=== PATIENT | male | born 1940 | race Caucasian/White ===

== ENCOUNTER → 2016-11-15 | Outpatient (CLI) | payer MEDICARE, OTHER | END | disposition home or self-care (01) | LOC: PETCFH 10:02 | PROVIDERS: ATTEND Orthopaedic Surgery Orthopaedic Surgery of the Spine | DX: M81.0 Age-related osteoporosis without current pathological fracture (principal); M25.561 Pain in right knee; Z96.651 Presence of right artificial knee joint | CPT/HCPCS: 78315; A9503 ==

== ENCOUNTER → 2017-01-06 | Outpatient (CLI) | payer MEDICARE, OTHER | END | disposition home or self-care (01) | LOC: CFH 10:23 | PROVIDERS: ATTEND Orthopaedic Surgery Adult Reconstructive Orthopaedic Surgery | DX: M25.561 Pain in right knee (principal); Z96.651 Presence of right artificial knee joint ==

== ENCOUNTER → 2017-01-11 | Outpatient (CLI) | payer MEDICARE, OTHER | END | disposition home or self-care (01) | LOC: CVU 08:55 | PROVIDERS: ATTEND Internal Medicine Cardiovascular Disease | DX: I65.23 Occlusion and stenosis of bilateral carotid arteries (principal); E11.9 Type 2 diabetes mellitus without complications; I63.9 Cerebral infarction, unspecified; Z79.899 Other long term (current) drug therapy; Z87.891 Personal history of nicotine dependence | CPT/HCPCS: 93306; 93880 ==

== ENCOUNTER → 2017-04-06 | Outpatient (CLI) | payer MEDICARE, OTHER | END | disposition home or self-care (01) | LOC: CVU 07:30 | PROVIDERS: ATTEND Registered Nurse | DX: I65.23 Occlusion and stenosis of bilateral carotid arteries (principal); I10 Essential (primary) hypertension; E11.9 Type 2 diabetes mellitus without complications; I25.10 Atherosclerotic heart disease of native coronary artery without angina pectoris; Z86.73 Personal history of transient ischemic attack (TIA), and cerebral infarction without residual deficits | CPT/HCPCS: 93880 ==

== ENCOUNTER → 2017-06-08 | Outpatient (CLI) | payer MEDICARE, OTHER ==
[~2017-06-08] MED LIST: REGADENOSON 0.4 MG/5 ML SYRINGE ONE
== END | disposition home or self-care (01) ==
LOC: CFH 11:37
PROVIDERS: ATTEND Internal Medicine Cardiovascular Disease
DX: Z01.810 Encounter for preprocedural cardiovascular examination (principal)
CPT/HCPCS: 78452; 93017; A9502; J2785

== ENCOUNTER 2018-05-18 02:40 | Inpatient (IN) | payer MEDICARE, OTHER ==
[~2018-05-18] VITALS: Ht 177.8 cm; Wt 114.5 kg
[2018-05-18] MEDS ORDERED: ACETAMINOPHEN 500 MG TABLET PO ONE (03:00)
[2018-05-18] MEDS ORDERED: ONDANSETRON 2MG/ML, 2ML IVPush ONE (03:00)
[2018-05-18] MEDS ORDERED: ONDANSETRON 2MG/ML, 2ML ONE (03:16)
[2018-05-18] MEDS ORDERED: ACETAMINOPHEN 500 MG TABLET ONE (03:16)
[2018-05-18 03:19] LABS: BASOPHILS # (AUTO) 0.03 x10^3/uL (0-0.1); BASOPHILS % (AUTO) 1 % (0-1); EOSINOPHILS # (AUTO) 0.32 x10^3/uL (0-0.4); EOSINOPHILS % (AUTO) 4 % (1-7); LYMPHOCYTES # (AUTO) 0.94 x10^3/uL (1-3.4); LYMPHOCYTES % (AUTO) 13 % (22-44); MD NO; MEAN CORPUSCULAR HEMOGLOBIN 28.4 pg (27.5-34.5); MEAN CORPUSCULAR HGB CONC 32.3 g/dL (33.2-36.2); MEAN CORPUSCULAR VOLUME 87.8 fL (81-97); MEAN PLATELET VOLUME 8.1 fL (7.4-10.4); MONOCYTES # (AUTO) 0.42 x10^3/uL (0.2-0.8); MONOCYTES % (AUTO) 6 % (2-9); NEUTROPHILS # (AUTO) 5.74 x10^3/uL (1.8-6.8); NEUTROPHILS % (AUTO) 77 % (42-75); PLATELET COUNT 217 x10^3/uL (130-400); RED CELL DISTRIBUTION WIDTH 16.7 % (9.4-14.8)
[2018-05-18 03:30] LABS: ALANINE AMINOTRANSFERASE 20 U/L (12-78); ALBUMIN 2.7 g/dL (3.4-5.0); ANION GAP 8 mmol/L (5-15); CALCIUM 8.9 mg/dL (8.5-10.1); CHLORIDE 105 mmol/L (98-107)
[2018-05-18 03:35] LABS: ALKALINE PHOSPHATASE 108 U/L (45-117); BILIRUBIN,TOTAL 1.7 mg/dL (0.2-1.0); CREATININE 1.53 mg/dL (0.7-1.3); TOTAL PROTEIN 7.2 g/dL (6.4-8.2)
[2018-05-18 03:35] LABS: TROPONIN I < 0.015 ng/mL (0.000-0.045)
[2018-05-18] MEDS ORDERED: OMNIPAQUE 350 MG/ML, 100ML BOTTLE ONE (03:59)
[2018-05-18 05:13] LABS: MICROSCOPIC AUTO
[2018-05-18 05:24] LABS: CULTURE INDICATED? NO
[2018-05-18] MEDS ORDERED: VICTOZA SQ (05:53)
[2018-05-18] MEDS ORDERED: GABA300C10 PO (05:53)
[2018-05-18] MEDS ORDERED: DOCU100T3 PO (05:53)
[2018-05-18] MEDS ORDERED: LEVEMIR SQ (05:53)
[2018-05-18] MEDS ORDERED: FOSI10TA PO (05:53)
[2018-05-18] MEDS ORDERED: TAMS0.4C2 PO (05:53)
[2018-05-18] MEDS ORDERED: ASPI-496 PO (05:53)
[2018-05-18] MEDS ORDERED: CARV6.252 PO (05:53)
[2018-05-18] MEDS ORDERED: POLYETHYLENE GLYCOL PO (05:53)
[2018-05-18] MEDS ORDERED: ATOR40TA78 PO (05:53)
[2018-05-18] MEDS ORDERED: FINA5TAB4 PO (05:53)
[2018-05-18] MEDS ORDERED: FERR324T5 PO (05:53)
[2018-05-18] MEDS ORDERED: OXYB5TAB7 PO (05:53)
[2018-05-18] MEDS ORDERED: METF500T17 PO (05:53)
[2018-05-18 09:36] VITALS: BP 151/75
[2018-05-18] MEDS: FINASTERIDE 5 MG TABLET PO SCH (11:54)
[2018-05-18] MEDS: CARVEDILOL 6.25 MG TABLET PO SCH ×2 (11:54→23:54)
[2018-05-18] MEDS ORDERED: ENALAPRILAT 1.25 MG/ML, 2ML IVPush PRN (12:00)
[2018-05-18] MEDS ORDERED: ONDANSETRON 2MG/ML, 2ML IVPush PRN (12:00)
[2018-05-18] MEDS ORDERED: GLUCAGON 1 MG IM PRN (12:00)
[2018-05-18] MEDS ORDERED: LABETALOL 5MG/ML, 20ML IVPush PRN (12:00)
[2018-05-18] MEDS ORDERED: morphine SULFATE 10 MG/ML, 1ML IVPush PRN (12:00)
[2018-05-18] MEDS ORDERED: TEMAZEPAM 15 MG CAPSULE PO PRN (12:00)
[2018-05-18] MEDS ORDERED: DEXTROSE 4 GM TAB.CHEW PO PRN (12:00)
[2018-05-18] MEDS ORDERED: DEXTROSE 50%, 50ML SYRINGE IVPush PRN (12:00)
[2018-05-18] MEDS ORDERED: ONDANSETRON ODT 4 MG PO PRN (12:00)
[2018-05-18 12:55] LABS: HEMOGLOBIN A1C 8.3 % (4.2-6.3)
[2018-05-18 13:59] VITALS: BP 109/66
[2018-05-18] MEDS: INSULIN LISPRO 100 UNITS/ML, PEN SQ-INSULIN SCH (16:00)
[2018-05-18 20:22] VITALS: BP 133/71
[2018-05-18] MEDS: INSULIN GLARGINE 100 UNITS/ML, PEN SQ-INSULIN SCH (21:00)
[2018-05-18] MEDS: TAMSULOSIN 0.4 MG CAP.ER.24H PO SCH (23:53)
[2018-05-18] MEDS: GABAPENTIN 300 MG CAPSULE PO SCH (23:53)
[2018-05-18] MEDS: SODIUM CHLORIDE FLUSH 10ML SYR IVF SCH (23:54)
[2018-05-19 01:26] VITALS: BP 115/67
[2018-05-19] MEDS: INSULIN LISPRO 100 UNITS/ML, PEN SQ-INSULIN SCH ×5 (02:53→21:37)
[2018-05-19 05:45] LABS: BASOPHILS # (AUTO) 0.03 x10^3/uL (0-0.1); BASOPHILS % (AUTO) 0 % (0-1); EOSINOPHILS # (AUTO) 0.33 x10^3/uL (0-0.4); EOSINOPHILS % (AUTO) 4 % (1-7); LYMPHOCYTES # (AUTO) 1.21 x10^3/uL (1-3.4); LYMPHOCYTES % (AUTO) 16 % (22-44); MD NO; MEAN CORPUSCULAR HEMOGLOBIN 28.6 pg (27.5-34.5); MEAN CORPUSCULAR HGB CONC 32.6 g/dL (33.2-36.2); MEAN CORPUSCULAR VOLUME 87.8 fL (81-97); MEAN PLATELET VOLUME 8.5 fL (7.4-10.4); MONOCYTES # (AUTO) 0.53 x10^3/uL (0.2-0.8); MONOCYTES % (AUTO) 7 % (2-9); NEUTROPHILS # (AUTO) 5.49 x10^3/uL (1.8-6.8); NEUTROPHILS % (AUTO) 73 % (42-75); PLATELET COUNT 186 x10^3/uL (130-400); RED BLOOD COUNT 3.38 x10^6/uL (4.38-5.82)
[2018-05-19 05:51] LABS: ALBUMIN 2.3 g/dL (3.4-5.0); ANION GAP 9 mmol/L (5-15); CHLORIDE 107 mmol/L (98-107)
[2018-05-19 06:20] LABS: % IRON SATURATION 19 % (20-55); ALANINE AMINOTRANSFERASE 14 U/L (12-78); ALKALINE PHOSPHATASE 96 U/L (45-117); BILIRUBIN,TOTAL 1.4 mg/dL (0.2-1.0); CALCIUM 8.4 mg/dL (8.5-10.1); CHOL/HDL RATIO 1.7; CHOLESTEROL, TOTAL 67 mg/dL (140-239); CREATININE 1.77 mg/dL (0.7-1.3); HDL CHOL % 60 % (26-37); HDL CHOLESTEROL (DIRECT) 40 mg/dL (40-60); IRON LEVEL 37 mcg/dL (65-175); LDL CHOLESTEROL,CALCULATED 12 mg/dL (54-169); LDL/HDL RATIO 0.3 (0.5-3.0); TOTAL IRON BINDING CAPACITY 197 mcg/dL (250-450); TRIGLYCERIDES 76 mg/dL (50-200); VLDL CHOLESTEROL 15 mg/dL (0-25)
[2018-05-19 07:31] VITALS: BP 132/74
[2018-05-19] MEDS: SODIUM CHLORIDE FLUSH 10ML SYR IVF SCH ×2 (08:08→21:35)
[2018-05-19] MEDS: FINASTERIDE 5 MG TABLET PO SCH (08:08)
[2018-05-19] MEDS: CARVEDILOL 6.25 MG TABLET PO SCH ×2 (08:08→21:36)
[2018-05-19] MEDS: ASPIRIN 325 MG TABLET PO SCH (08:08)
[2018-05-19] MEDS ORDERED: CYANOCOBALAMIN 1,000 MCG/ML, 1ML IM ONE (10:00)
[2018-05-19] MEDS: FERROUS SULFATE 220 MG/5 ML ORAL SOL PO SCH ×2 (10:36→18:04)
[2018-05-19 13:46] VITALS: BP 132/78
[2018-05-19 18:35] VITALS: BP 133/73
[2018-05-19] MEDS: TAMSULOSIN 0.4 MG CAP.ER.24H PO SCH (21:36)
[2018-05-19] MEDS: GABAPENTIN 300 MG CAPSULE PO SCH (21:36)
[2018-05-19] MEDS: INSULIN GLARGINE 100 UNITS/ML, PEN SQ-INSULIN SCH (21:37)
[2018-05-20 02:14] VITALS: BP 157/65
[2018-05-20 06:04] LABS: BASOPHILS # (AUTO) 0.04 x10^3/uL (0-0.1); BASOPHILS % (AUTO) 1 % (0-1); EOSINOPHILS # (AUTO) 0.27 x10^3/uL (0-0.4); EOSINOPHILS % (AUTO) 4 % (1-7); LYMPHOCYTES # (AUTO) 0.94 x10^3/uL (1-3.4); LYMPHOCYTES % (AUTO) 15 % (22-44); MD NO; MEAN CORPUSCULAR HEMOGLOBIN 28.7 pg (27.5-34.5); MEAN CORPUSCULAR HGB CONC 32.6 g/dL (33.2-36.2); MEAN CORPUSCULAR VOLUME 88.1 fL (81-97); MEAN PLATELET VOLUME 8.6 fL (7.4-10.4); MONOCYTES # (AUTO) 0.48 x10^3/uL (0.2-0.8); MONOCYTES % (AUTO) 7 % (2-9); NEUTROPHILS # (AUTO) 4.79 x10^3/uL (1.8-6.8); NEUTROPHILS % (AUTO) 74 % (42-75); PLATELET COUNT 189 x10^3/uL (130-400); RED CELL DISTRIBUTION WIDTH 16.8 % (9.4-14.8)
[2018-05-20 06:15] LABS: ALANINE AMINOTRANSFERASE 16 U/L (12-78); ALBUMIN 2.4 g/dL (3.4-5.0); ANION GAP 8 mmol/L (5-15); CALCIUM 8.7 mg/dL (8.5-10.1); CHLORIDE 107 mmol/L (98-107)
[2018-05-20 06:18] LABS: ALKALINE PHOSPHATASE 108 U/L (45-117); BILIRUBIN,TOTAL 1.6 mg/dL (0.2-1.0); CREATININE 1.58 mg/dL (0.7-1.3); TOTAL PROTEIN 6.4 g/dL (6.4-8.2)
[2018-05-20] MEDS: INSULIN LISPRO 100 UNITS/ML, PEN SQ-INSULIN SCH ×2 (07:40→11:17)
[2018-05-20 07:50] VITALS: BP 156/80
[2018-05-20] MEDS: CARVEDILOL 6.25 MG TABLET PO SCH (08:09)
[2018-05-20] MEDS: FINASTERIDE 5 MG TABLET PO SCH (08:09)
[2018-05-20] MEDS: ASPIRIN 325 MG TABLET PO SCH (08:09)
[2018-05-20 08:10] VITALS: BP 156/80
[2018-05-20] MEDS: FERROUS SULFATE 220 MG/5 ML ORAL SOL PO SCH (08:10)
[2018-05-20 13:35] VITALS: BP 126/69
== END 2018-05-20 14:30 | disposition home health service (06) | DRG 438 ==
LOC: ED 03:36 → 4NOR 07:58 → ED 12:05
PROVIDERS: ADMIT Internal Medicine; ATTEND Internal Medicine
PROC: 0T9B70Z Drainage of Bladder with Drainage Device, Via Natural or Artificial Opening (ICD-10-PCS; principal; 2018-05-18)
DX: K85.90 Acute pancreatitis without necrosis or infection, unspecified (principal); J96.21 Acute and chronic respiratory failure with hypoxia; N13.2 Hydronephrosis with renal and ureteral calculous obstruction; I13.0 Hypertensive heart and chronic kidney disease with heart failure and stage 1 through stage 4 chronic kidney disease, or unspecified chronic kidney disease; I50.32 Chronic diastolic (congestive) heart failure; N40.1 Benign prostatic hyperplasia with lower urinary tract symptoms; K57.90 Diverticulosis of intestine, part unspecified, without perforation or abscess without bleeding; E11.22 Type 2 diabetes mellitus with diabetic chronic kidney disease; E11.42 Type 2 diabetes mellitus with diabetic polyneuropathy; E11.65 Type 2 diabetes mellitus with hyperglycemia; E53.8 Deficiency of other specified B group vitamins; D50.9 Iron deficiency anemia, unspecified; N18.3 Chronic kidney disease, stage 3 (moderate); Z96.641 Presence of right artificial hip joint; Z96.651 Presence of right artificial knee joint; R31.0 Gross hematuria; I35.8 Other nonrheumatic aortic valve disorders; E78.5 Hyperlipidemia, unspecified; E66.9 Obesity, unspecified; Z87.891 Personal history of nicotine dependence; Z90.49 Acquired absence of other specified parts of digestive tract; Z68.36 Body mass index [BMI] 36.0-36.9, adult; Z79.899 Other long term (current) drug therapy
CPT/HCPCS: 36415; 71045; 74177; 80053; 80061; 81001; 82607; 82728; 82962; 83036; 83540; 83550; 83605; 83690; 83735; 83880; 84100; 84484; 85025; 93005; 93306; 96374; G0378; J2405; Q9967; J3420

== ENCOUNTER → 2018-06-20 | Outpatient (CLI) | payer MEDICARE, OTHER ==
[~2018-06-20] MED LIST changes: +ASPI-496 PO; +ATOR40TA78 PO; +CARV6.252 PO; +DOCU100T3 PO; +FERR324T5 PO; +FINA5TAB4 PO; +FOSI10TA PO; +GABA300C10 PO; +LEVEMIR SQ; +METF500T17 PO; +OXYB5TAB7 PO; +POLYETHYLENE GLYCOL PO; -REGADENOSON 0.4 MG/5 ML SYRINGE ONE; +TAMS0.4C2 PO; +VICTOZA SQ
== END | disposition home or self-care (01) ==
LOC: CFH 07:42
PROVIDERS: ATTEND Physician Assistant Medical
DX: D73.89 Other diseases of spleen (principal)
CPT/HCPCS: 74181

== ENCOUNTER 2018-06-28 11:08 | Inpatient (IN) | payer MEDICARE, OTHER ==
[~2018-06-28] VITALS: Ht 177.8 cm; Wt 99.3 kg
[~2018-06-28 11:08] MED LIST changes: +ASPI-650 PO; +ATOR40TA PO; +INSU100V13 PO; +TAMS-11 PO
[2018-06-28] MEDS ORDERED: LACTATED RINGERS 1,000 ML IV SCH (11:59)
[2018-06-28] MEDS ORDERED: ROCURONIUM 10MG/ML,5ML ONE (12:22)
[2018-06-28] MEDS ORDERED: NEOSTIGMINE 1 MG/ML, 10ML ONE (12:22)
[2018-06-28] MEDS ORDERED: GLYCOPYRROLATE 0.2MG/1ML, 5ML ONE (12:22)
[2018-06-28] MEDS ORDERED: CEFAZOLIN 1,000 MG ONE (12:22)
[2018-06-28] MEDS ORDERED: PROPOFOL 10 MG/ML, 20ML ONE (12:22)
[2018-06-28] MEDS ORDERED: FENTANYL PF 250 MCG/5ML ONE (12:51)
[2018-06-28] MEDS ORDERED: PROMETHAZINE 25 MG/ML, 1ML IM PRN ×2 (13:30)
[2018-06-28] MEDS ORDERED: ONDANSETRON 2MG/ML, 2ML IV PRN (13:30)
[2018-06-28] MEDS ORDERED: PROMETHAZINE 25 MG/ML, 1ML IV PRN (13:30)
[2018-06-28] MEDS ORDERED: OXYcodone 5 MG/5 ML ORAL.SOL UDC PO PRN (13:30)
[2018-06-28] MEDS ORDERED: hydrALAzine 20 MG/ML, 1ML IV PRN (13:30)
[2018-06-28] MEDS ORDERED: MEPERIDINE/PF 25MG/0.5ML IVPush PRN (13:30)
[2018-06-28] MEDS ORDERED: MORPHINE SULFATE 4 MG/ML, 1ML IVPush PRN (13:30)
[2018-06-28] MEDS ORDERED: ONDANSETRON ODT 8 MG PO PRN (13:30)
[2018-06-28] MEDS ORDERED: HYDROmorphone 2 MG/ML, 1ML IVPush PRN (13:30)
[2018-06-28] MEDS ORDERED: LABETALOL 5MG/ML, 20ML IV PRN (13:30)
[2018-06-28] MEDS ORDERED: PROMETHAZINE 12.5 MG SUPP PR PRN (13:30)
[2018-06-28] MEDS ORDERED: PROMETHAZINE 25 MG SUPP PR PRN (13:30)
[2018-06-28] MEDS ORDERED: OMNIPAQUE 350 MG/ML, 50 ML BOTTLE IV ONE (13:45)
[2018-06-28] MEDS ORDERED: CIPROFLOXACIN/PMX 400MG/200ML 200 ML ONE (13:48)
[2018-06-28] MEDS ORDERED: OXYcodone/APAP 5/325MG TABLET PO PRN ×2 (15:30→22:00)
[2018-06-28] MEDS ORDERED: ONDANSETRON 2MG/ML, 2ML ONE (15:43)
[2018-06-28] MEDS ORDERED: ALBUTEROL/IPRATROPIUM 2.5MG/0.5MG, 3 ML ONE (15:58)
[2018-06-28] MEDS ORDERED: ALBUTEROL SULFATE 2.5 MG/3 ML NPPB PRN (16:00)
[2018-06-28] MEDS ORDERED: FENTANYL PF 100 MCG/2ML ONE (16:12)
[2018-06-28] MEDS: FENTANYL PF 100 MCG/2ML IV PRN ×2 (16:15→16:30)
[2018-06-28] MEDS ORDERED: PROMETHAZINE 25 MG/ML, 1ML ONE (16:48)
[2018-06-28 17:48] VITALS: BP 116/69
[2018-06-28] MEDS: INSULIN DETEMIR 30 UNIT PO SCH (22:00)
[2018-06-28] MEDS ORDERED: PHENAZOPYRIDINE 200 MG TABLET PO PRN (22:00)
[2018-06-28] MEDS ORDERED: OXYBUTYNIN CHLORIDE 5 MG TABLET PO PRN (22:00)
[2018-06-28 23:21] VITALS: BP 137/74
[2018-06-28] MEDS: ATORVASTATIN 40 MG TABLET PO SCH (23:23)
[2018-06-28] MEDS: CIPROFLOXACIN 500 MG TABLET PO SCH (23:23)
[2018-06-28] MEDS: GABAPENTIN 300 MG CAPSULE PO SCH (23:23)
[2018-06-28] MEDS: OXYBUTYNIN CHLORIDE 5 MG TABLET PO SCH (23:23)
[2018-06-28] MEDS: metFORMIN 500 MG TABLET PO SCH (23:24)
[2018-06-28] MEDS: CARVEDILOL 6.25 MG TABLET PO SCH (23:24)
[2018-06-29 01:47] VITALS: BP 134/83
[2018-06-29 07:23] VITALS: BP 144/83
[2018-06-29] MEDS: TAMSULOSIN 0.4 MG CAP.ER.24H PO SCH (08:41)
[2018-06-29] MEDS: ASPIRIN 325 MG TABLET PO SCH (08:41)
[2018-06-29] MEDS: CARVEDILOL 6.25 MG TABLET PO SCH ×2 (08:41→21:39)
[2018-06-29] MEDS: metFORMIN 500 MG TABLET PO SCH (08:41)
[2018-06-29] MEDS: POLYETHYLENE GLYCOL 17 GM PACKET PO SCH (08:42)
[2018-06-29] MEDS: FINASTERIDE 5 MG TABLET PO SCH (08:42)
[2018-06-29] MEDS: CIPROFLOXACIN 500 MG TABLET PO SCH (08:43)
[2018-06-29] MEDS ORDERED: FOSINOPRIL 20MG TABLET PO SCH (09:00)
[2018-06-29 12:34] VITALS: BP 130/78
[2018-06-29 13:13] LABS: BASOPHILS % (AUTO) 0 % (0-1); EOSINOPHILS # (AUTO) 0.04 x10^3/uL (0-0.4); EOSINOPHILS % (AUTO) 0 % (1-7); LYMPHOCYTES # (AUTO) 0.59 x10^3/uL (1-3.4); LYMPHOCYTES % (AUTO) 5 % (22-44); MD NO; MEAN CORPUSCULAR HEMOGLOBIN 28.4 pg (27.5-34.5); MEAN CORPUSCULAR HGB CONC 32.9 g/dL (33.2-36.2); MEAN CORPUSCULAR VOLUME 86.3 fL (81-97); MEAN PLATELET VOLUME 8.9 fL (7.4-10.4); MONOCYTES # (AUTO) 0.64 x10^3/uL (0.2-0.8); MONOCYTES % (AUTO) 5 % (2-9); NEUTROPHILS # (AUTO) 10.94 x10^3/uL (1.8-6.8); NEUTROPHILS % (AUTO) 90 % (42-75); PLATELET COUNT 157 x10^3/uL (130-400); RED BLOOD COUNT 3.66 x10^6/uL (4.38-5.82); RED CELL DISTRIBUTION WIDTH 18.2 % (9.4-14.8)
[2018-06-29 13:18] LABS: ALBUMIN 2.4 g/dL (3.4-5.0); ANION GAP 6 mmol/L (5-15); CALCIUM 8.4 mg/dL (8.5-10.1); CHLORIDE 107 mmol/L (98-107); CREATININE 1.82 mg/dL (0.7-1.3)
[2018-06-29] MEDS ORDERED: DEXTROSE 4 GM TAB.CHEW PO PRN (16:30)
[2018-06-29] MEDS ORDERED: GLUCAGON 1 MG IM PRN (16:30)
[2018-06-29] MEDS ORDERED: DEXTROSE 50%, 50ML SYRINGE IVPush PRN (16:30)
[2018-06-29] MEDS ORDERED: PHARMACY MAY ADJ FOR RENAL FX MC PRN (16:30)
[2018-06-29] MEDS ORDERED: MAGNESIUM SULFATE PMX 2GM/50ML 50 ML IV ONE (16:30)
[2018-06-29] MEDS: SODIUM CHLORIDE 0.45% 1,000 ML IV SCH (16:47)
[2018-06-29 17:12] LABS: CHOL/HDL RATIO 1.4; LDL/HDL RATIO 0.1 (0.5-3.0)
[2018-06-29] MEDS: INSULIN LISPRO 100 UNITS/ML, PEN SQ-INSULIN SCH ×2 (17:19→21:39)
[2018-06-29 17:31] LABS: HEMOGLOBIN A1C 9.9 % (4.2-6.3)
[2018-06-29 19:05] VITALS: BP 105/62
[2018-06-29] MEDS: SODIUM CHLORIDE FLUSH 10ML SYR IVF SCH (21:00)
[2018-06-29] MEDS ORDERED: INSULIN GLARGINE 100 UNITS/ML, PEN SQ-INSULIN SCH (21:00)
[2018-06-29] MEDS: INSULIN DETEMIR 30 UNIT PO SCH (21:00)
[2018-06-29 21:38] VITALS: BP 137/76
[2018-06-29] MEDS: ATORVASTATIN 40 MG TABLET PO SCH (21:39)
[2018-06-29] MEDS: GABAPENTIN 300 MG CAPSULE PO SCH (21:39)
[2018-06-29] MEDS: OXYBUTYNIN CHLORIDE 5 MG TABLET PO SCH (21:39)
[2018-06-30] MEDS: SODIUM CHLORIDE 0.45% 1,000 ML IV SCH (00:30)
[2018-06-30 01:07] VITALS: BP 109/60
[2018-06-30 05:56] LABS: BASOPHILS # (AUTO) 0.01 x10^3/uL (0-0.1); BASOPHILS % (AUTO) 0 % (0-1); EOSINOPHILS # (AUTO) 0.02 x10^3/uL (0-0.4); EOSINOPHILS % (AUTO) 0 % (1-7); LYMPHOCYTES # (AUTO) 0.49 x10^3/uL (1-3.4); LYMPHOCYTES % (AUTO) 4 % (22-44); MD NO; MEAN CORPUSCULAR HEMOGLOBIN 27.9 pg (27.5-34.5); MEAN CORPUSCULAR HGB CONC 32.9 g/dL (33.2-36.2); MEAN PLATELET VOLUME 8.6 fL (7.4-10.4); MONOCYTES # (AUTO) 0.89 x10^3/uL (0.2-0.8); MONOCYTES % (AUTO) 7 % (2-9); NEUTROPHILS # (AUTO) 10.58 x10^3/uL (1.8-6.8); NEUTROPHILS % (AUTO) 88 % (42-75); PLATELET COUNT 139 x10^3/uL (130-400); RED BLOOD COUNT 3.44 x10^6/uL (4.38-5.82)
[2018-06-30 06:03] LABS: ALBUMIN 2.3 g/dL (3.4-5.0); ANION GAP 9 mmol/L (5-15); CALCIUM 8.4 mg/dL (8.5-10.1); CHLORIDE 105 mmol/L (98-107)
[2018-06-30 06:06] LABS: ALANINE AMINOTRANSFERASE 14 U/L (12-78); ALKALINE PHOSPHATASE 80 U/L (45-117); BILIRUBIN,TOTAL 2.9 mg/dL (0.2-1.0); CREATININE 1.94 mg/dL (0.7-1.3)
[2018-06-30 07:12] VITALS: BP 136/63
[2018-06-30] MEDS: ASPIRIN 325 MG TABLET PO SCH (08:12)
[2018-06-30] MEDS: INSULIN LISPRO 100 UNITS/ML, PEN SQ-INSULIN SCH ×4 (08:12→21:37)
[2018-06-30] MEDS: POLYETHYLENE GLYCOL 17 GM PACKET PO SCH (08:12)
[2018-06-30] MEDS: SODIUM CHLORIDE FLUSH 10ML SYR IVF SCH ×2 (08:13→21:00)
[2018-06-30] MEDS: TAMSULOSIN 0.4 MG CAP.ER.24H PO SCH (08:13)
[2018-06-30] MEDS: CARVEDILOL 6.25 MG TABLET PO SCH ×2 (08:13→21:12)
[2018-06-30] MEDS: FINASTERIDE 5 MG TABLET PO SCH (08:13)
[2018-06-30 08:39] LABS: MICROSCOPIC INDICATED
[2018-06-30 08:50] LABS: CULTURE INDICATED? YES
[2018-06-30] MEDS ORDERED: FUROSEMIDE 40 MG/4 ML IV ONE (09:00)
[2018-06-30] MEDS ORDERED: ALBUMIN HUMAN 25% 100 ML IV ONE (09:00)
[2018-06-30] MEDS: INSULIN GLARGINE 100 UNITS/ML, PEN SQ-INSULIN SCH (09:01)
--- NOTE | 2018-06-30 10:20 | NUR ---
YOLANDA recommends: soft texture/thin liquids, no straws Addendum: 06/30/18 at 1609 by Yasmin CONCEPCION Amended: Links added.
[2018-06-30] MEDS ORDERED: PHARMACY MAY ADJ FOR RENAL FX MC PRN (12:00)
[2018-06-30] MEDS: CEFTRIAXONE PMX 2GM/50ML 50 ML IV SCH (12:14)
[2018-06-30 12:15] VITALS: BP 138/77
[2018-06-30 18:59] VITALS: BP 129/58
[2018-06-30] MEDS ORDERED: ALBUMIN HUMAN 25% 100 ML IV SCH (21:00)
[2018-06-30] MEDS: ATORVASTATIN 40 MG TABLET PO SCH (21:12)
[2018-06-30] MEDS: GABAPENTIN 300 MG CAPSULE PO SCH (21:12)
[2018-06-30] MEDS: OXYBUTYNIN CHLORIDE 5 MG TABLET PO SCH (21:12)
[2018-06-30] MEDS: FUROSEMIDE 20 MG/2 ML IV SCH (21:54)
[2018-07-01 02:16] VITALS: BP 124/71
[2018-07-01 05:10] LABS: BASOPHILS % (AUTO) 0 % (0-1); EOSINOPHILS % (AUTO) 0 % (1-7); LYMPHOCYTES % (AUTO) 4 % (22-44); MD NO; MEAN CORPUSCULAR HEMOGLOBIN 27.9 pg (27.5-34.5); MEAN CORPUSCULAR HGB CONC 32.4 g/dL (33.2-36.2); MEAN CORPUSCULAR VOLUME 85.9 fL (81-97); MEAN PLATELET VOLUME 8.8 fL (7.4-10.4); MONOCYTES # (AUTO) 0.81 x10^3/uL (0.2-0.8); MONOCYTES % (AUTO) 8 % (2-9); NEUTROPHILS # (AUTO) 9.21 x10^3/uL (1.8-6.8); NEUTROPHILS % (AUTO) 88 % (42-75); PLATELET COUNT 129 x10^3/uL (130-400); RED BLOOD COUNT 3.16 x10^6/uL (4.38-5.82); RED CELL DISTRIBUTION WIDTH 17.8 % (9.4-14.8)
[2018-07-01 05:19] LABS: ALBUMIN 2.5 g/dL (3.4-5.0); ANION GAP 10 mmol/L (5-15); CALCIUM 8.4 mg/dL (8.5-10.1); CHLORIDE 103 mmol/L (98-107)
[2018-07-01 05:23] LABS: ALANINE AMINOTRANSFERASE 15 U/L (12-78); ALKALINE PHOSPHATASE 76 U/L (45-117); BILIRUBIN,TOTAL 2.7 mg/dL (0.2-1.0); CREATININE 2.61 mg/dL (0.7-1.3); TOTAL PROTEIN 6.3 g/dL (6.4-8.2)
[2018-07-01] MEDS: FUROSEMIDE 20 MG/2 ML IV SCH (07:30)
[2018-07-01 08:11] VITALS: BP 114/64
[2018-07-01] MEDS ORDERED: FUROSEMIDE 20 MG/2 ML IV SCH (09:00)
[2018-07-01] MEDS: ALBUMIN HUMAN 25% 100 ML IV SCH ×3 (09:00→20:52)
[2018-07-01] MEDS: INSULIN LISPRO 100 UNITS/ML, PEN SQ-INSULIN SCH ×4 (09:03→22:08)
[2018-07-01] MEDS: INSULIN GLARGINE 100 UNITS/ML, PEN SQ-INSULIN SCH (09:04)
[2018-07-01] MEDS: SODIUM CHLORIDE FLUSH 10ML SYR IVF SCH ×2 (09:06→20:51)
[2018-07-01] MEDS: ASPIRIN 325 MG TABLET PO SCH (09:06)
[2018-07-01] MEDS: FINASTERIDE 5 MG TABLET PO SCH (09:06)
[2018-07-01] MEDS: CARVEDILOL 6.25 MG TABLET PO SCH ×2 (09:06→20:51)
[2018-07-01] MEDS: TAMSULOSIN 0.4 MG CAP.ER.24H PO SCH (09:06)
[2018-07-01] MEDS: POLYETHYLENE GLYCOL 17 GM PACKET PO SCH (09:06)
[2018-07-01] MEDS: GUAIFENESIN 200 MG TABLET PO SCH ×3 (11:15→20:50)
[2018-07-01] MEDS: CEFTRIAXONE PMX 2GM/50ML 50 ML IV SCH (11:15)
[2018-07-01 13:09] VITALS: BP 105/65
[2018-07-01 14:03] LABS: ANION GAP 8 mmol/L (5-15); CALCIUM 8.2 mg/dL (8.5-10.1); CHLORIDE 103 mmol/L (98-107); CREATININE 2.82 mg/dL (0.7-1.3)
[2018-07-01] MEDS ORDERED: SODIUM CHLORIDE 0.45% 1,000 ML IV SCH (19:30)
[2018-07-01 20:27] VITALS: BP 107/58
[2018-07-01] MEDS: ATORVASTATIN 40 MG TABLET PO SCH (20:50)
[2018-07-01] MEDS: OXYBUTYNIN CHLORIDE 5 MG TABLET PO SCH (20:51)
[2018-07-01] MEDS: GABAPENTIN 300 MG CAPSULE PO SCH (20:51)
[2018-07-02 01:18] VITALS: BP 106/64
[2018-07-02] MEDS: ALBUMIN HUMAN 25% 100 ML IV SCH ×3 (03:56→22:21)
[2018-07-02 05:01] LABS: ALBUMIN 2.7 g/dL (3.4-5.0); ANION GAP 10 mmol/L (5-15); CALCIUM 8.1 mg/dL (8.5-10.1); CHLORIDE 104 mmol/L (98-107); CREATININE 2.95 mg/dL (0.7-1.3)
[2018-07-02 05:07] LABS: BASOPHILS % (AUTO) 0 % (0-1); EOSINOPHILS # (AUTO) 0.16 x10^3/uL (0-0.4); EOSINOPHILS % (AUTO) 2 % (1-7); LYMPHOCYTES # (AUTO) 0.49 x10^3/uL (1-3.4); LYMPHOCYTES % (AUTO) 5 % (22-44); MD NO; MEAN CORPUSCULAR HEMOGLOBIN 28.1 pg (27.5-34.5); MEAN CORPUSCULAR HGB CONC 32.8 g/dL (33.2-36.2); MEAN CORPUSCULAR VOLUME 85.6 fL (81-97); MEAN PLATELET VOLUME 8.9 fL (7.4-10.4); MONOCYTES # (AUTO) 0.77 x10^3/uL (0.2-0.8); MONOCYTES % (AUTO) 9 % (2-9); NEUTROPHILS # (AUTO) 7.55 x10^3/uL (1.8-6.8); NEUTROPHILS % (AUTO) 84 % (42-75); PLATELET COUNT 116 x10^3/uL (130-400); RED BLOOD COUNT 2.93 x10^6/uL (4.38-5.82); RED CELL DISTRIBUTION WIDTH 18.2 % (9.4-14.8)
[2018-07-02] MEDS: GUAIFENESIN 200 MG TABLET PO SCH ×4 (06:27→22:24)
[2018-07-02] MEDS: INSULIN LISPRO 100 UNITS/ML, PEN SQ-INSULIN SCH ×4 (06:33→22:27)
[2018-07-02 07:33] VITALS: BP 124/65
[2018-07-02] MEDS: SODIUM CHLORIDE FLUSH 10ML SYR IVF SCH ×2 (09:00→22:24)
[2018-07-02] MEDS: FINASTERIDE 5 MG TABLET PO SCH (09:03)
[2018-07-02] MEDS: ASPIRIN 325 MG TABLET PO SCH (09:03)
[2018-07-02] MEDS: TAMSULOSIN 0.4 MG CAP.ER.24H PO SCH (09:03)
[2018-07-02] MEDS: INSULIN GLARGINE 100 UNITS/ML, PEN SQ-INSULIN SCH (09:04)
[2018-07-02] MEDS: CARVEDILOL 6.25 MG TABLET PO SCH ×2 (09:04→22:23)
[2018-07-02] MEDS: POLYETHYLENE GLYCOL 17 GM PACKET PO SCH (09:04)
[2018-07-02] MEDS: AMPICILLIN/SULBACTAM 3 GM in SODIUM CHLORIDE 0.9% 100 ML IV SCH ×2 (11:02→23:29)
[2018-07-02] MEDS: SODIUM CHLORIDE 0.9% 1,000 ML IV SCH ×2 (12:00→23:28)
[2018-07-02] MEDS ORDERED: methylPREDNISolone SOD SUCC 125 MG/2 ML IVPush SCH (13:00)
[2018-07-02 13:06] VITALS: BP 96/54
[2018-07-02 13:11] LABS: ABSOLUTE RETICS # 0.039 x10^6/uL (0.5-1.5); RED BLOOD COUNT 2.99 x10^6/uL (4.38-5.82); RETICULOCYTE COUNT % 1.32 % (0.5-1.5)
[2018-07-02 13:14] LABS: CALCIUM 7.8 mg/dL (8.5-10.1)
[2018-07-02 14:04] VITALS: BP 118/70
[2018-07-02] MEDS: ERGOCALCIFEROL 50,000 UNIT CAPSULE PO SCH (16:34)
[2018-07-02 19:26] VITALS: BP 104/41
[2018-07-02 22:13] VITALS: BP 114/41
[2018-07-02] MEDS: ATORVASTATIN 40 MG TABLET PO SCH (22:23)
[2018-07-02] MEDS: OXYBUTYNIN CHLORIDE 5 MG TABLET PO SCH (22:23)
[2018-07-02] MEDS: GABAPENTIN 300 MG CAPSULE PO SCH (22:24)
[2018-07-03 02:58] VITALS: BP 139/62
[2018-07-03] MEDS: ALBUMIN HUMAN 25% 100 ML IV SCH ×4 (04:31→23:20)
[2018-07-03 05:10] LABS: BASOPHILS % (AUTO) 0 % (0-1); EOSINOPHILS % (AUTO) 0 % (1-7); LYMPHOCYTES # (AUTO) 0.32 x10^3/uL (1-3.4); LYMPHOCYTES % (AUTO) 4 % (22-44); MD NO; MEAN CORPUSCULAR HEMOGLOBIN 27.9 pg (27.5-34.5); MEAN CORPUSCULAR HGB CONC 32.8 g/dL (33.2-36.2); MEAN PLATELET VOLUME 9.3 fL (7.4-10.4); MONOCYTES % (AUTO) 3 % (2-9); NEUTROPHILS # (AUTO) 7.14 x10^3/uL (1.8-6.8); NEUTROPHILS % (AUTO) 93 % (42-75); PLATELET COUNT 133 x10^3/uL (130-400); RED BLOOD COUNT 3.23 x10^6/uL (4.38-5.82); RED CELL DISTRIBUTION WIDTH 18.2 % (9.4-14.8)
[2018-07-03 05:22] LABS: CHLORIDE 104 mmol/L (98-107)
[2018-07-03 05:27] LABS: ALANINE AMINOTRANSFERASE 39 U/L (12-78); ALKALINE PHOSPHATASE 152 U/L (45-117); ANION GAP 11 mmol/L (5-15); BILIRUBIN,TOTAL 1.3 mg/dL (0.2-1.0); CALCIUM 7.9 mg/dL (8.5-10.1); CREATININE 2.69 mg/dL (0.7-1.3); TOTAL PROTEIN 6.6 g/dL (6.4-8.2)
[2018-07-03] MEDS: GUAIFENESIN 200 MG TABLET PO SCH ×5 (05:50→21:53)
[2018-07-03 06:02] VITALS: BP 144/55
[2018-07-03] MEDS: INSULIN GLARGINE 100 UNITS/ML, PEN SQ-INSULIN SCH (09:03)
[2018-07-03] MEDS: ASPIRIN 325 MG TABLET PO SCH (09:03)
[2018-07-03] MEDS: POLYETHYLENE GLYCOL 17 GM PACKET PO SCH (09:03)
[2018-07-03] MEDS: CARVEDILOL 6.25 MG TABLET PO SCH ×2 (09:04→23:01)
[2018-07-03] MEDS: TAMSULOSIN 0.4 MG CAP.ER.24H PO SCH (09:04)
[2018-07-03] MEDS: SODIUM CHLORIDE FLUSH 10ML SYR IVF SCH ×2 (09:05→21:56)
[2018-07-03] MEDS: INSULIN LISPRO 100 UNITS/ML, PEN SQ-INSULIN SCH ×4 (09:50→22:01)
[2018-07-03] MEDS: AMPICILLIN/SULBACTAM 3 GM in SODIUM CHLORIDE 0.9% 100 ML IV SCH ×2 (09:50→21:53)
[2018-07-03] MEDS: FINASTERIDE 5 MG TABLET PO SCH (09:53)
[2018-07-03] MEDS: SODIUM CHLORIDE 0.9% 1,000 ML IV SCH ×2 (11:15→21:53)
[2018-07-03] MEDS: IRON SUCROSE COMPLEX 100MG/5ML IV SCH (11:36)
[2018-07-03 12:58] VITALS: BP 141/60
[2018-07-03 18:56] VITALS: BP 132/56
[2018-07-03] MEDS: GABAPENTIN 300 MG CAPSULE PO SCH (21:53)
[2018-07-03] MEDS: ATORVASTATIN 40 MG TABLET PO SCH (21:53)
[2018-07-03] MEDS: OXYBUTYNIN CHLORIDE 5 MG TABLET PO SCH (21:54)
[2018-07-03] MEDS ORDERED: FUROSEMIDE 20 MG/2 ML IV ONE (23:30)
[2018-07-04 01:46] VITALS: BP 131/75
[2018-07-04] MEDS: ALBUMIN HUMAN 25% 100 ML IV SCH ×4 (04:54→23:59)
[2018-07-04] MEDS: GUAIFENESIN 200 MG TABLET PO SCH ×4 (05:05→21:26)
[2018-07-04 05:36] LABS: CHLORIDE 107 mmol/L (98-107)
[2018-07-04 05:43] LABS: ALBUMIN 3.4 g/dL (3.4-5.0); ANION GAP 10 mmol/L (5-15); CALCIUM 8.3 mg/dL (8.5-10.1); CREATININE 2.64 mg/dL (0.7-1.3)
[2018-07-04 05:44] LABS: BASOPHILS # (AUTO) 0.02 x10^3/uL (0-0.1); BASOPHILS % (AUTO) 0 % (0-1); EOSINOPHILS # (AUTO) 0.06 x10^3/uL (0-0.4); EOSINOPHILS % (AUTO) 1 % (1-7); LYMPHOCYTES # (AUTO) 0.64 x10^3/uL (1-3.4); LYMPHOCYTES % (AUTO) 7 % (22-44); MD NO; MEAN PLATELET VOLUME 9.5 fL (7.4-10.4); MONOCYTES # (AUTO) 0.64 x10^3/uL (0.2-0.8); MONOCYTES % (AUTO) 7 % (2-9); NEUTROPHILS # (AUTO) 7.94 x10^3/uL (1.8-6.8); NEUTROPHILS % (AUTO) 86 % (42-75); PLATELET COUNT 137 x10^3/uL (130-400); RED BLOOD COUNT 3.14 x10^6/uL (4.38-5.82); RED CELL DISTRIBUTION WIDTH 17.9 % (9.4-14.8)
[2018-07-04] MEDS: SODIUM CHLORIDE 0.9% 1,000 ML IV SCH (08:37)
[2018-07-04] MEDS: TAMSULOSIN 0.4 MG CAP.ER.24H PO SCH (08:37)
[2018-07-04] MEDS: FINASTERIDE 5 MG TABLET PO SCH (08:37)
[2018-07-04] MEDS: CARVEDILOL 6.25 MG TABLET PO SCH ×2 (08:38→21:26)
[2018-07-04] MEDS: AMPICILLIN/SULBACTAM 3 GM in SODIUM CHLORIDE 0.9% 100 ML IV SCH ×2 (08:38→21:27)
[2018-07-04] MEDS: POLYETHYLENE GLYCOL 17 GM PACKET PO SCH (08:38)
[2018-07-04] MEDS: ASPIRIN 325 MG TABLET PO SCH (08:38)
[2018-07-04] MEDS: INSULIN LISPRO 100 UNITS/ML, PEN SQ-INSULIN SCH ×4 (08:50→21:35)
[2018-07-04 08:56] VITALS: BP 147/82
[2018-07-04] MEDS ORDERED: INSULIN GLARGINE 100 UNITS/ML, PEN SQ-INSULIN SCH (09:00)
[2018-07-04] MEDS: SODIUM CHLORIDE FLUSH 10ML SYR IVF SCH ×2 (10:57→21:00)
[2018-07-04] MEDS: IRON SUCROSE COMPLEX 100MG/5ML IV SCH (10:57)
[2018-07-04] MEDS ORDERED: SODIUM CHLORIDE 0.9% 1,000 ML IV SCH (12:00)
[2018-07-04 16:09] VITALS: BP 128/58
[2018-07-04 20:53] VITALS: BP 160/71
[2018-07-04] MEDS: GABAPENTIN 300 MG CAPSULE PO SCH (21:27)
[2018-07-04] MEDS: ATORVASTATIN 40 MG TABLET PO SCH (21:27)
[2018-07-04] MEDS: OXYBUTYNIN CHLORIDE 5 MG TABLET PO SCH (21:27)
[2018-07-05 00:26] VITALS: BP 138/66
[2018-07-05 05:56] LABS: BASOPHILS % (AUTO) 0 % (0-1); EOSINOPHILS # (AUTO) 0.21 x10^3/uL (0-0.4); EOSINOPHILS % (AUTO) 2 % (1-7); LYMPHOCYTES # (AUTO) 0.48 x10^3/uL (1-3.4); LYMPHOCYTES % (AUTO) 5 % (22-44); MD NO; MEAN CORPUSCULAR HEMOGLOBIN 27.5 pg (27.5-34.5); MEAN CORPUSCULAR HGB CONC 32.3 g/dL (33.2-36.2); MEAN CORPUSCULAR VOLUME 85.3 fL (81-97); MEAN PLATELET VOLUME 9.8 fL (7.4-10.4); MONOCYTES # (AUTO) 0.69 x10^3/uL (0.2-0.8); MONOCYTES % (AUTO) 7 % (2-9); NEUTROPHILS % (AUTO) 86 % (42-75); PLATELET COUNT 148 x10^3/uL (130-400); RED CELL DISTRIBUTION WIDTH 18.1 % (9.4-14.8)
[2018-07-05 06:02] LABS: ALBUMIN 3.6 g/dL (3.4-5.0); ANION GAP 11 mmol/L (5-15); CALCIUM 8.4 mg/dL (8.5-10.1); CHLORIDE 109 mmol/L (98-107)
[2018-07-05 06:07] LABS: ALANINE AMINOTRANSFERASE 48 U/L (12-78); ALKALINE PHOSPHATASE 120 U/L (45-117); BILIRUBIN,TOTAL 1.2 mg/dL (0.2-1.0); CREATININE 2.58 mg/dL (0.7-1.3); TOTAL PROTEIN 6.3 g/dL (6.4-8.2)
[2018-07-05] MEDS: GUAIFENESIN 200 MG TABLET PO SCH ×4 (06:07→22:44)
[2018-07-05] MEDS: ALBUMIN HUMAN 25% 100 ML IV SCH ×4 (06:08→23:50)
[2018-07-05 08:00] VITALS: BP 122/76
[2018-07-05] MEDS: INSULIN LISPRO 100 UNITS/ML, PEN SQ-INSULIN SCH ×4 (09:16→20:04)
[2018-07-05] MEDS: AMPICILLIN/SULBACTAM 3 GM in SODIUM CHLORIDE 0.9% 100 ML IV SCH ×2 (09:16→22:44)
[2018-07-05] MEDS: INSULIN GLARGINE 100 UNITS/ML, PEN SQ-INSULIN SCH (09:16)
[2018-07-05] MEDS: CARVEDILOL 6.25 MG TABLET PO SCH ×2 (09:17→20:04)
[2018-07-05] MEDS: ASPIRIN 325 MG TABLET PO SCH (09:17)
[2018-07-05] MEDS: POLYETHYLENE GLYCOL 17 GM PACKET PO SCH (09:17)
[2018-07-05] MEDS: TAMSULOSIN 0.4 MG CAP.ER.24H PO SCH (09:17)
[2018-07-05] MEDS: FINASTERIDE 5 MG TABLET PO SCH (09:17)
[2018-07-05] MEDS: SODIUM CHLORIDE FLUSH 10ML SYR IVF SCH ×2 (09:18→20:04)
[2018-07-05] MEDS: methylPREDNISolone SOD SUCC 125 MG/2 ML IVPush SCH ×4 (10:35→22:44)
[2018-07-05] MEDS: IRON SUCROSE COMPLEX 100MG/5ML IV SCH (10:35)
[2018-07-05] MEDS ORDERED: ALBUTEROL SULFATE 2.5 MG/3 ML NPPB PRN (11:00)
[2018-07-05] MEDS ORDERED: FUROSEMIDE 40 MG/4 ML IV ONE (12:00)
[2018-07-05 13:58] VITALS: BP 158/77
[2018-07-05 17:16] LABS: ANION GAP 13 mmol/L (5-15); CALCIUM 8.6 mg/dL (8.5-10.1); CHLORIDE 107 mmol/L (98-107); CREATININE 2.48 mg/dL (0.7-1.3)
[2018-07-05 19:45] VITALS: BP 143/85
[2018-07-05] MEDS: ATORVASTATIN 40 MG TABLET PO SCH (20:04)
[2018-07-05] MEDS: OXYBUTYNIN CHLORIDE 5 MG TABLET PO SCH (20:04)
[2018-07-05] MEDS: GABAPENTIN 300 MG CAPSULE PO SCH (20:04)
[2018-07-05] MEDS: ALBUTEROL SULFATE 2.5 MG/3 ML NPPB SCH (20:41)
[2018-07-06 01:40] VITALS: BP 127/81
[2018-07-06] MEDS: methylPREDNISolone SOD SUCC 125 MG/2 ML IVPush SCH ×4 (04:35→22:41)
[2018-07-06 05:31] LABS: BASOPHILS % (AUTO) 0 % (0-1); EOSINOPHILS % (AUTO) 0 % (1-7); LYMPHOCYTES # (AUTO) 0.45 x10^3/uL (1-3.4); LYMPHOCYTES % (AUTO) 4 % (22-44); MD NO; MEAN CORPUSCULAR HEMOGLOBIN 27.5 pg (27.5-34.5); MEAN CORPUSCULAR HGB CONC 31.9 g/dL (33.2-36.2); MEAN CORPUSCULAR VOLUME 86.2 fL (81-97); MEAN PLATELET VOLUME 9.9 fL (7.4-10.4); MONOCYTES # (AUTO) 0.24 x10^3/uL (0.2-0.8); MONOCYTES % (AUTO) 2 % (2-9); NEUTROPHILS # (AUTO) 9.43 x10^3/uL (1.8-6.8); NEUTROPHILS % (AUTO) 93 % (42-75); PLATELET COUNT 154 x10^3/uL (130-400); RED BLOOD COUNT 3.18 x10^6/uL (4.38-5.82); RED CELL DISTRIBUTION WIDTH 18.4 % (9.4-14.8)
[2018-07-06 05:46] LABS: CHLORIDE 109 mmol/L (98-107)
[2018-07-06 05:51] LABS: ALANINE AMINOTRANSFERASE 42 U/L (12-78); ALBUMIN 3.6 g/dL (3.4-5.0); ALKALINE PHOSPHATASE 123 U/L (45-117); ANION GAP 10 mmol/L (5-15); BILIRUBIN,TOTAL 1.1 mg/dL (0.2-1.0); CALCIUM 8.5 mg/dL (8.5-10.1); CREATININE 2.58 mg/dL (0.7-1.3); TOTAL PROTEIN 6.3 g/dL (6.4-8.2)
[2018-07-06] MEDS: GUAIFENESIN 200 MG TABLET PO SCH ×4 (06:36→20:24)
[2018-07-06] MEDS: ALBUMIN HUMAN 25% 100 ML IV SCH ×4 (06:38→23:57)
[2018-07-06 07:21] VITALS: BP 126/52
[2018-07-06] MEDS: ALBUTEROL SULFATE 2.5 MG/3 ML NPPB SCH ×2 (08:00→19:54)
[2018-07-06] MEDS: POLYETHYLENE GLYCOL 17 GM PACKET PO SCH (09:00)
[2018-07-06] MEDS: ASPIRIN 325 MG TABLET PO SCH (09:40)
[2018-07-06] MEDS: CARVEDILOL 6.25 MG TABLET PO SCH ×2 (09:40→22:35)
[2018-07-06] MEDS: TAMSULOSIN 0.4 MG CAP.ER.24H PO SCH (09:40)
[2018-07-06] MEDS: INSULIN GLARGINE 100 UNITS/ML, PEN SQ-INSULIN SCH (09:41)
[2018-07-06] MEDS: AMPICILLIN/SULBACTAM 3 GM in SODIUM CHLORIDE 0.9% 100 ML IV SCH (09:41)
[2018-07-06] MEDS: SODIUM CHLORIDE FLUSH 10ML SYR IVF SCH ×2 (09:42→20:31)
[2018-07-06] MEDS: IRON SUCROSE COMPLEX 100MG/5ML IV SCH (09:43)
[2018-07-06] MEDS: INSULIN LISPRO 100 UNITS/ML, PEN SQ-INSULIN SCH ×4 (09:43→20:31)
[2018-07-06] MEDS: FINASTERIDE 5 MG TABLET PO SCH (09:45)
[2018-07-06 12:28] LABS: TROPONIN I 0.062 ng/mL (0.000-0.045)
[2018-07-06 12:54] VITALS: BP 147/77
[2018-07-06] MEDS ORDERED: HEPARIN 5,000 UNITS/ML, 1ML IV ONE (18:00)
[2018-07-06] MEDS ORDERED: AMPICILLIN/SULBACTAM 3 GM in SODIUM CHLORIDE 0.9% 100 ML IV SCH (18:00)
[2018-07-06] MEDS: SODIUM CHLORIDE 0.9% 1,000 ML IV SCH (18:31)
[2018-07-06] MEDS: HEPARIN 25,000 UNITS/500ML PMX 500 ML IV PRN (18:31)
[2018-07-06 18:47] VITALS: BP 148/63
[2018-07-06 20:19] VITALS: BP 137/61
[2018-07-06] MEDS: AMOXICILLIN/CLAV 500-125MG TABLET PO SCH (20:24)
[2018-07-06] MEDS: ATORVASTATIN 40 MG TABLET PO SCH (20:25)
[2018-07-06] MEDS: GABAPENTIN 300 MG CAPSULE PO SCH (20:25)
[2018-07-06] MEDS: OXYBUTYNIN CHLORIDE 5 MG TABLET PO SCH (20:25)
[2018-07-06 22:33] VITALS: BP 142/63
[2018-07-07] MEDS: HEPARIN 5,000 UNITS/ML, 1ML IV PRN ×3 (00:58→19:28)
[2018-07-07 01:25] VITALS: BP 133/58
[2018-07-07] MEDS: methylPREDNISolone SOD SUCC 125 MG/2 ML IVPush SCH ×4 (04:37→22:29)
[2018-07-07] MEDS: GUAIFENESIN 200 MG TABLET PO SCH ×4 (05:50→20:18)
[2018-07-07] MEDS: ALBUMIN HUMAN 25% 100 ML IV SCH ×4 (05:50→23:11)
[2018-07-07] MEDS: ALBUTEROL SULFATE 2.5 MG/3 ML NPPB SCH ×3 (06:40→21:28)
[2018-07-07] MEDS: SODIUM CHLORIDE 0.9% 1,000 ML IV SCH ×2 (07:00→23:11)
[2018-07-07 07:25] LABS: BASOPHILS % (AUTO) 0 % (0-1); EOSINOPHILS % (AUTO) 0 % (1-7); LYMPHOCYTES # (AUTO) 0.65 x10^3/uL (1-3.4); LYMPHOCYTES % (AUTO) 6 % (22-44); MD NO; MEAN CORPUSCULAR HEMOGLOBIN 27.1 pg (27.5-34.5); MEAN CORPUSCULAR HGB CONC 31.8 g/dL (33.2-36.2); MEAN CORPUSCULAR VOLUME 85.1 fL (81-97); MEAN PLATELET VOLUME 9.6 fL (7.4-10.4); MONOCYTES # (AUTO) 0.19 x10^3/uL (0.2-0.8); MONOCYTES % (AUTO) 2 % (2-9); NEUTROPHILS % (AUTO) 93 % (42-75); PLATELET COUNT 177 x10^3/uL (130-400); RED BLOOD COUNT 2.94 x10^6/uL (4.38-5.82); RED CELL DISTRIBUTION WIDTH 18.8 % (9.4-14.8)
[2018-07-07 07:34] LABS: ALBUMIN 4.3 g/dL (3.4-5.0); ANION GAP 11 mmol/L (5-15); CALCIUM 8.6 mg/dL (8.5-10.1); CHLORIDE 107 mmol/L (98-107); CREATININE 2.76 mg/dL (0.7-1.3)
[2018-07-07] MEDS: HEPARIN 25,000 UNITS/500ML PMX 500 ML IV PRN ×2 (08:46→23:32)
[2018-07-07] MEDS: INSULIN LISPRO 100 UNITS/ML, PEN SQ-INSULIN SCH ×4 (08:51→20:21)
[2018-07-07] MEDS: FINASTERIDE 5 MG TABLET PO SCH (08:52)
[2018-07-07] MEDS: CARVEDILOL 6.25 MG TABLET PO SCH ×2 (08:52→20:59)
[2018-07-07] MEDS: TAMSULOSIN 0.4 MG CAP.ER.24H PO SCH (08:52)
[2018-07-07] MEDS: AMOXICILLIN/CLAV 500-125MG TABLET PO SCH ×2 (08:52→20:18)
[2018-07-07] MEDS: POLYETHYLENE GLYCOL 17 GM PACKET PO SCH (08:52)
[2018-07-07] MEDS: SODIUM CHLORIDE FLUSH 10ML SYR IVF SCH ×2 (08:52→20:22)
[2018-07-07 09:00] VITALS: BP 110/72
[2018-07-07] MEDS ORDERED: INSULIN GLARGINE 100 UNITS/ML, PEN SQ-INSULIN SCH (09:00)
[2018-07-07] MEDS: IRON SUCROSE COMPLEX 100MG/5ML IV SCH (11:15)
[2018-07-07 12:41] LABS: BASOPHILS # (AUTO) 0.01 x10^3/uL (0-0.1); BASOPHILS % (AUTO) 0 % (0-1); EOSINOPHILS % (AUTO) 0 % (1-7); LYMPHOCYTES # (AUTO) 0.75 x10^3/uL (1-3.4); LYMPHOCYTES % (AUTO) 6 % (22-44); MD NO; MEAN CORPUSCULAR HEMOGLOBIN 27.5 pg (27.5-34.5); MEAN CORPUSCULAR HGB CONC 32.1 g/dL (33.2-36.2); MEAN CORPUSCULAR VOLUME 85.6 fL (81-97); MEAN PLATELET VOLUME 9.5 fL (7.4-10.4); MONOCYTES # (AUTO) 0.22 x10^3/uL (0.2-0.8); MONOCYTES % (AUTO) 2 % (2-9); NEUTROPHILS # (AUTO) 10.76 x10^3/uL (1.8-6.8); NEUTROPHILS % (AUTO) 92 % (42-75); PLATELET COUNT 159 x10^3/uL (130-400); RED BLOOD COUNT 2.96 x10^6/uL (4.38-5.82); RED CELL DISTRIBUTION WIDTH 18.7 % (9.4-14.8)
[2018-07-07 13:34] VITALS: BP 130/78
[2018-07-07 19:11] VITALS: BP 132/65
[2018-07-07] MEDS: ATORVASTATIN 40 MG TABLET PO SCH (20:18)
[2018-07-07] MEDS: GABAPENTIN 300 MG CAPSULE PO SCH (20:18)
[2018-07-07] MEDS: OXYBUTYNIN CHLORIDE 5 MG TABLET PO SCH (20:19)
[2018-07-07] MEDS: INSULIN GLARGINE 100 UNITS/ML, PEN SQ-INSULIN SCH (20:20)
[2018-07-07 20:53] LABS: BASOPHILS % (AUTO) 0 % (0-1); EOSINOPHILS % (AUTO) 0 % (1-7); LYMPHOCYTES # (AUTO) 0.79 x10^3/uL (1-3.4); LYMPHOCYTES % (AUTO) 7 % (22-44); MD NO; MEAN CORPUSCULAR HEMOGLOBIN 27.9 pg (27.5-34.5); MEAN CORPUSCULAR HGB CONC 32.4 g/dL (33.2-36.2); MEAN CORPUSCULAR VOLUME 86.1 fL (81-97); MEAN PLATELET VOLUME 9.5 fL (7.4-10.4); MONOCYTES # (AUTO) 0.35 x10^3/uL (0.2-0.8); MONOCYTES % (AUTO) 3 % (2-9); NEUTROPHILS # (AUTO) 10.26 x10^3/uL (1.8-6.8); NEUTROPHILS % (AUTO) 90 % (42-75); PLATELET COUNT 171 x10^3/uL (130-400); RED BLOOD COUNT 2.84 x10^6/uL (4.38-5.82); RED CELL DISTRIBUTION WIDTH 18.5 % (9.4-14.8)
[2018-07-07 20:58] VITALS: BP 143/73
[2018-07-08 01:30] VITALS: BP 127/70
[2018-07-08 01:35] LABS: BASOPHILS % (AUTO) 0 % (0-1); EOSINOPHILS % (AUTO) 0 % (1-7); LYMPHOCYTES # (AUTO) 0.76 x10^3/uL (1-3.4); LYMPHOCYTES % (AUTO) 7 % (22-44); MD NO; MEAN CORPUSCULAR HEMOGLOBIN 27.8 pg (27.5-34.5); MEAN CORPUSCULAR HGB CONC 32.3 g/dL (33.2-36.2); MEAN CORPUSCULAR VOLUME 86.2 fL (81-97); MEAN PLATELET VOLUME 9.2 fL (7.4-10.4); MONOCYTES # (AUTO) 0.37 x10^3/uL (0.2-0.8); MONOCYTES % (AUTO) 3 % (2-9); NEUTROPHILS # (AUTO) 10.42 x10^3/uL (1.8-6.8); NEUTROPHILS % (AUTO) 90 % (42-75); PLATELET COUNT 166 x10^3/uL (130-400); RED BLOOD COUNT 2.72 x10^6/uL (4.38-5.82); RED CELL DISTRIBUTION WIDTH 18.6 % (9.4-14.8)
[2018-07-08 01:43] LABS: ALANINE AMINOTRANSFERASE 29 U/L (12-78); ALBUMIN 4.4 g/dL (3.4-5.0); ANION GAP 9 mmol/L (5-15); CALCIUM 8.3 mg/dL (8.5-10.1); CHLORIDE 106 mmol/L (98-107)
[2018-07-08 01:46] LABS: ALKALINE PHOSPHATASE 76 U/L (45-117); TOTAL PROTEIN 6.7 g/dL (6.4-8.2)
[2018-07-08] MEDS: methylPREDNISolone SOD SUCC 125 MG/2 ML IVPush SCH ×4 (04:36→20:42)
[2018-07-08] MEDS: GUAIFENESIN 200 MG TABLET PO SCH ×4 (05:46→20:34)
[2018-07-08] MEDS: ALBUMIN HUMAN 25% 100 ML IV SCH ×4 (05:46→23:20)
[2018-07-08 06:50] VITALS: BP 139/71
[2018-07-08] MEDS: ALBUTEROL SULFATE 2.5 MG/3 ML NPPB SCH ×2 (07:36→18:42)
[2018-07-08] MEDS: SODIUM CHLORIDE FLUSH 10ML SYR IVF SCH ×2 (09:00→20:34)
[2018-07-08] MEDS: INSULIN LISPRO 100 UNITS/ML, PEN SQ-INSULIN SCH ×4 (09:02→20:46)
[2018-07-08] MEDS: INSULIN GLARGINE 100 UNITS/ML, PEN SQ-INSULIN SCH ×2 (09:03→20:46)
[2018-07-08] MEDS: POLYETHYLENE GLYCOL 17 GM PACKET PO SCH (09:04)
[2018-07-08] MEDS: FINASTERIDE 5 MG TABLET PO SCH (09:04)
[2018-07-08] MEDS: TAMSULOSIN 0.4 MG CAP.ER.24H PO SCH (09:05)
[2018-07-08] MEDS: AMOXICILLIN/CLAV 500-125MG TABLET PO SCH ×2 (09:05→20:42)
[2018-07-08] MEDS: CARVEDILOL 6.25 MG TABLET PO SCH ×2 (09:05→20:34)
[2018-07-08 11:31] LABS: MEAN CORPUSCULAR HEMOGLOBIN 27.7 pg (27.5-34.5); MEAN CORPUSCULAR HGB CONC 31.2 g/dL (33.2-36.2); MEAN CORPUSCULAR VOLUME 88.9 fL (81-97); MEAN PLATELET VOLUME 9.7 fL (7.4-10.4); PLATELET COUNT 165 x10^3/uL (130-400); RED BLOOD COUNT 2.57 x10^6/uL (4.38-5.82); RED CELL DISTRIBUTION WIDTH 19.4 % (9.4-14.8)
[2018-07-08 11:40] LABS: BASOPHILS # (AUTO) 0.01 x10^3/uL (0-0.1); BASOPHILS % (AUTO) 0 % (0-1); EOSINOPHILS % (AUTO) 0 % (1-7); LYMPHOCYTES # (AUTO) 0.68 x10^3/uL (1-3.4); LYMPHOCYTES % (AUTO) 6 % (22-44); MD SCAN; MONOCYTES # (AUTO) 0.25 x10^3/uL (0.2-0.8); MONOCYTES % (AUTO) 2 % (2-9); NEUTROPHILS # (AUTO) 10.19 x10^3/uL (1.8-6.8); NEUTROPHILS % (AUTO) 92 % (42-75)
[2018-07-08] MEDS: FERROUS SULFATE 325 MG TABLET PO SCH (12:16)
[2018-07-08 12:24] VITALS: BP 133/63
[2018-07-08] MEDS ORDERED: FUROSEMIDE 40 MG/4 ML IV ONE (13:30)
[2018-07-08] MEDS: HEPARIN 5,000 UNITS/ML, 1ML SQ SCH ×2 (13:59→20:35)
[2018-07-08 18:37] VITALS: BP 139/59
[2018-07-08 20:11] LABS: MEAN CORPUSCULAR HGB CONC 32.2 g/dL (33.2-36.2); MEAN CORPUSCULAR VOLUME 86.8 fL (81-97); MEAN PLATELET VOLUME 9.1 fL (7.4-10.4); PLATELET COUNT 157 x10^3/uL (130-400); RED BLOOD COUNT 2.48 x10^6/uL (4.38-5.82); RED CELL DISTRIBUTION WIDTH 18.8 % (9.4-14.8)
[2018-07-08 20:26] LABS: MD YES
[2018-07-08] MEDS: GABAPENTIN 300 MG CAPSULE PO SCH (20:34)
[2018-07-08] MEDS: ATORVASTATIN 40 MG TABLET PO SCH (20:34)
[2018-07-08 20:39] LABS: <PLATELET ESTIMATE> ADEQUATE; <PLT MORPHOLOGY> NORMAL PLT MORPH; LYMPH#(MANUAL) 0.57 x10^3/uL (1-3.4); LYMPHS% (MANUAL) 5 % (22-44); METAMYELOCYTES# (MANUAL) 0.11 x10^3/uL (0-0); METAMYELOCYTES% (MANUAL) 1 % (0-1); MONOS#(MANUAL) 0.11 x10^3/uL (0.3-2.7); MONOS% (MANUAL) 1 % (2-9); MYELOCYTES# (MANUAL) 0.23 x10^3/uL (0-0); MYELOCYTES% (MANUAL) 2 % (0-0); SEG#(MANUAL) 10.37 x10^3/uL (1.8-6.8); SEGS% (MANUAL) 91 % (42-75)
[2018-07-08 20:40] LABS: CRENATED 1+; TOXIC GRAN 1+
[2018-07-08 20:41] LABS: ACANTHOCYTES 1+; SCHISTOCYTES 1+
[2018-07-08 20:42] LABS: OVALOCYTES 1+
[2018-07-08] MEDS: OXYBUTYNIN CHLORIDE 5 MG TABLET PO SCH (20:42)
[2018-07-08 20:44] LABS: POLYCHROMASIA 1+
[2018-07-08 20:45] LABS: BASOPHILLIC STIPPLING 1+
[2018-07-08 20:47] LABS: MICROCYTOSIS 1+
[2018-07-08 20:48] LABS: HYPOCHROMIA 1+
[2018-07-08] MEDS ORDERED: ACETAMINOPHEN 325 MG TABLET PO ONE ×2 (21:00)
[2018-07-08] MEDS ORDERED: DIPHENHYDRAMINE 12.5MG/5ML ORAL SOL PO ONE ×2 (21:00)
[2018-07-08 23:35] VITALS: BP 108/60
[2018-07-08 23:53] VITALS: BP 112/63
[2018-07-09 00:05] VITALS: BP 107/57
[2018-07-09 01:52] VITALS: BP 109/63
[2018-07-09 01:54] VITALS: BP 109/63
[2018-07-09 03:40] LABS: MEAN CORPUSCULAR HEMOGLOBIN 27.7 pg (27.5-34.5); MEAN CORPUSCULAR HGB CONC 32.4 g/dL (33.2-36.2); MEAN CORPUSCULAR VOLUME 85.4 fL (81-97); MEAN PLATELET VOLUME 8.9 fL (7.4-10.4); PLATELET COUNT 153 x10^3/uL (130-400); RED BLOOD COUNT 2.69 x10^6/uL (4.38-5.82)
[2018-07-09 04:37] LABS: MD YES
[2018-07-09 04:39] LABS: BANDS%(MANUAL) 4 % (0-7); HYPOCHROMIA 1+; LYMPH#(MANUAL) 0.87 x10^3/uL (1-3.4); LYMPHS% (MANUAL) 7 % (22-44); METAMYELOCYTES# (MANUAL) 0.25 x10^3/uL (0-0); METAMYELOCYTES% (MANUAL) 2 % (0-1); MICROCYTOSIS 1+; MONOS#(MANUAL) 0.25 x10^3/uL (0.3-2.7); MONOS% (MANUAL) 2 % (2-9); OVALOCYTES 1+; POLYCHROMASIA 1+; SEG#(MANUAL) 10.54 x10^3/uL (1.8-6.8); SEGS% (MANUAL) 85 % (42-75)
[2018-07-09 04:40] LABS: <PLATELET ESTIMATE> ADEQUATE; <PLT MORPHOLOGY> NORMAL PLT MORPH; ACANTHOCYTES 1+; BASOPHILLIC STIPPLING 1+; SCHISTOCYTES 1+
[2018-07-09] MEDS: methylPREDNISolone SOD SUCC 125 MG/2 ML IVPush SCH ×2 (04:59→18:18)
[2018-07-09] MEDS: GUAIFENESIN 200 MG TABLET PO SCH ×4 (05:05→22:08)
[2018-07-09] MEDS: ALBUMIN HUMAN 25% 100 ML IV SCH ×3 (06:06→18:18)
[2018-07-09] MEDS: INSULIN LISPRO 100 UNITS/ML, PEN SQ-INSULIN SCH ×5 (06:19→23:16)
[2018-07-09 06:43] VITALS: BP 108/61
[2018-07-09] MEDS: INSULIN GLARGINE 100 UNITS/ML, PEN SQ-INSULIN SCH ×2 (07:39→23:16)
[2018-07-09] MEDS ORDERED: FUROSEMIDE 40 MG/4 ML IV ONE (08:00)
[2018-07-09 08:05] LABS: ALBUMIN 4.6 g/dL (3.4-5.0); ANION GAP 10 mmol/L (5-15); CALCIUM 8.2 mg/dL (8.5-10.1); CHLORIDE 106 mmol/L (98-107); CREATININE 2.96 mg/dL (0.7-1.3)
[2018-07-09] MEDS: FINASTERIDE 5 MG TABLET PO SCH (08:30)
[2018-07-09] MEDS: TAMSULOSIN 0.4 MG CAP.ER.24H PO SCH (08:30)
[2018-07-09] MEDS: SODIUM CHLORIDE FLUSH 10ML SYR IVF SCH ×2 (08:30→22:14)
[2018-07-09] MEDS: AMOXICILLIN/CLAV 500-125MG TABLET PO SCH ×2 (08:30→22:08)
[2018-07-09] MEDS: CARVEDILOL 6.25 MG TABLET PO SCH ×2 (08:30→22:08)
[2018-07-09] MEDS: ALBUTEROL SULFATE 2.5 MG/3 ML NPPB SCH ×2 (08:33→20:50)
[2018-07-09] MEDS: POLYETHYLENE GLYCOL 17 GM PACKET PO SCH (09:01)
[2018-07-09 12:49] VITALS: BP 125/66
[2018-07-09] MEDS ORDERED: MIDAZOLAM 1 MG/ML, 2ML ONE (16:10)
[2018-07-09] MEDS ORDERED: LIDOCAINE 1%, 20ML ONE (16:10)
[2018-07-09] MEDS ORDERED: FENTANYL PF 100 MCG/2ML ONE (16:10)
[2018-07-09] MEDS: ERGOCALCIFEROL 50,000 UNIT CAPSULE PO SCH (18:18)
[2018-07-09 19:46] VITALS: BP 118/62
[2018-07-09] MEDS: ATORVASTATIN 40 MG TABLET PO SCH (22:08)
[2018-07-09] MEDS: GABAPENTIN 300 MG CAPSULE PO SCH (22:08)
[2018-07-09] MEDS: OXYBUTYNIN CHLORIDE 5 MG TABLET PO SCH (22:08)
[2018-07-10] MEDS: ALBUMIN HUMAN 25% 100 ML IV SCH ×4 (00:53→18:47)
[2018-07-10 01:32] VITALS: BP 124/65
[2018-07-10] MEDS: methylPREDNISolone SOD SUCC 125 MG/2 ML IVPush SCH ×2 (04:04→11:09)
[2018-07-10 05:28] LABS: BASOPHILS % (AUTO) 0 % (0-1); EOSINOPHILS # (AUTO) 0.34 x10^3/uL (0-0.4); EOSINOPHILS % (AUTO) 2 % (1-7); LYMPHOCYTES # (AUTO) 1.08 x10^3/uL (1-3.4); LYMPHOCYTES % (AUTO) 6 % (22-44); MD NO; MEAN CORPUSCULAR HEMOGLOBIN 27.5 pg (27.5-34.5); MEAN CORPUSCULAR HGB CONC 32.2 g/dL (33.2-36.2); MEAN CORPUSCULAR VOLUME 85.5 fL (81-97); MEAN PLATELET VOLUME 9.2 fL (7.4-10.4); MONOCYTES # (AUTO) 0.47 x10^3/uL (0.2-0.8); MONOCYTES % (AUTO) 3 % (2-9); NEUTROPHILS # (AUTO) 15.57 x10^3/uL (1.8-6.8); NEUTROPHILS % (AUTO) 89 % (42-75); PLATELET COUNT 144 x10^3/uL (130-400); RED BLOOD COUNT 2.81 x10^6/uL (4.38-5.82); RED CELL DISTRIBUTION WIDTH 19.6 % (9.4-14.8)
[2018-07-10 05:37] LABS: ANION GAP 9 mmol/L (5-15); CHLORIDE 107 mmol/L (98-107); CREATININE 3.52 mg/dL (0.7-1.3)
[2018-07-10] MEDS: GUAIFENESIN 200 MG TABLET PO SCH ×4 (06:22→21:31)
[2018-07-10 07:52] VITALS: BP 142/68
[2018-07-10] MEDS ORDERED: FUROSEMIDE 40 MG/4 ML ONE (08:05)
[2018-07-10] MEDS ORDERED: FUROSEMIDE 20 MG/2 ML ONE (08:25)
[2018-07-10] MEDS ORDERED: FUROSEMIDE 100 MG/10 ML IV ONE (08:30)
[2018-07-10] MEDS: AMOXICILLIN/CLAV 500-125MG TABLET PO SCH (09:00)
[2018-07-10] MEDS: ISOSORBIDE DINITRATE 10 MG TABLET PO SCH ×3 (09:00→21:32)
[2018-07-10] MEDS: ALBUTEROL SULFATE 2.5 MG/3 ML NPPB SCH (09:00)
[2018-07-10] MEDS: INSULIN GLARGINE 100 UNITS/ML, PEN SQ-INSULIN SCH ×2 (09:00→21:41)
[2018-07-10] MEDS: POLYETHYLENE GLYCOL 17 GM PACKET PO SCH (09:00)
[2018-07-10] MEDS: SODIUM CHLORIDE FLUSH 10ML SYR IVF SCH ×2 (09:00→21:44)
[2018-07-10] MEDS: CARVEDILOL 6.25 MG TABLET PO SCH ×2 (09:00→21:31)
[2018-07-10] MEDS: FINASTERIDE 5 MG TABLET PO SCH (09:00)
[2018-07-10] MEDS: TAMSULOSIN 0.4 MG CAP.ER.24H PO SCH (09:00)
[2018-07-10] MEDS: INSULIN LISPRO 100 UNITS/ML, PEN SQ-INSULIN SCH ×4 (09:00→21:41)
[2018-07-10 12:39] VITALS: BP 122/78
[2018-07-10] MEDS: FERROUS SULFATE 325 MG TABLET PO SCH (12:50)
[2018-07-10 20:16] VITALS: BP 134/80
[2018-07-10] MEDS: OXYBUTYNIN CHLORIDE 5 MG TABLET PO SCH (21:30)
[2018-07-10] MEDS: ATORVASTATIN 40 MG TABLET PO SCH (21:30)
[2018-07-10] MEDS: GABAPENTIN 300 MG CAPSULE PO SCH (21:31)
[2018-07-11] MEDS: ALBUMIN HUMAN 25% 100 ML IV SCH ×4 (01:03→22:25)
[2018-07-11 01:55] VITALS: BP 127/60
[2018-07-11 05:46] LABS: ANION GAP 11 mmol/L (5-15); CALCIUM 7.8 mg/dL (8.5-10.1); CHLORIDE 105 mmol/L (98-107)
[2018-07-11 05:47] LABS: CREATININE 3.28 mg/dL (0.7-1.3)
[2018-07-11] MEDS: GUAIFENESIN 200 MG TABLET PO SCH ×4 (06:07→22:07)
[2018-07-11 06:36] LABS: MEAN CORPUSCULAR HEMOGLOBIN 26.9 pg (27.5-34.5); MEAN CORPUSCULAR HGB CONC 31.4 g/dL (33.2-36.2); MEAN CORPUSCULAR VOLUME 85.7 fL (81-97); MEAN PLATELET VOLUME 9.2 fL (7.4-10.4); PLATELET COUNT 131 x10^3/uL (130-400); RED BLOOD COUNT 2.62 x10^6/uL (4.38-5.82); RED CELL DISTRIBUTION WIDTH 18.9 % (9.4-14.8)
[2018-07-11 07:19] LABS: MD YES
[2018-07-11 07:21] LABS: LYMPH#(MANUAL) 1.09 x10^3/uL (1-3.4); LYMPHS% (MANUAL) 6 % (22-44); MONOS#(MANUAL) 0.73 x10^3/uL (0.3-2.7); MONOS% (MANUAL) 4 % (2-9); NRBC % (MANUAL) 2 % (0-1); SEG#(MANUAL) 16.38 x10^3/uL (1.8-6.8); SEGS% (MANUAL) 90 % (42-75)
[2018-07-11 07:23] LABS: <PLATELET ESTIMATE> ADEQUATE; <PLT MORPHOLOGY> NORMAL PLT MORPH; ACANTHOCYTES 1+; HYPOCHROMIA 1+; OVALOCYTES 1+; POLYCHROMASIA 1+; SCHISTOCYTES 1+
[2018-07-11 08:04] VITALS: BP 118/71
[2018-07-11] MEDS: POLYETHYLENE GLYCOL 17 GM PACKET PO SCH (09:00)
[2018-07-11] MEDS: FINASTERIDE 5 MG TABLET PO SCH (09:06)
[2018-07-11] MEDS: ISOSORBIDE DINITRATE 10 MG TABLET PO SCH ×3 (09:07→22:09)
[2018-07-11] MEDS: CARVEDILOL 6.25 MG TABLET PO SCH ×2 (09:07→22:09)
[2018-07-11] MEDS: TAMSULOSIN 0.4 MG CAP.ER.24H PO SCH (09:07)
[2018-07-11] MEDS: INSULIN LISPRO 100 UNITS/ML, PEN SQ-INSULIN SCH ×4 (09:08→22:22)
[2018-07-11] MEDS: methylPREDNISolone SOD SUCC 125 MG/2 ML IVPush SCH (09:08)
[2018-07-11] MEDS: INSULIN GLARGINE 100 UNITS/ML, PEN SQ-INSULIN SCH ×2 (09:08→22:22)
[2018-07-11] MEDS: SODIUM CHLORIDE FLUSH 10ML SYR IVF SCH ×2 (09:09→22:10)
[2018-07-11 13:37] LABS: OCCULT BLOOD POSITIVE (NEGATIVE)
[2018-07-11 13:58] VITALS: BP 110/66
[2018-07-11] MEDS: PANTOPRAZOLE 40 MG IV IVPush SCH (17:42)
[2018-07-11 18:28] LABS: MEAN CORPUSCULAR HEMOGLOBIN 27.7 pg (27.5-34.5); MEAN CORPUSCULAR HGB CONC 32.6 g/dL (33.2-36.2); MEAN PLATELET VOLUME 9.4 fL (7.4-10.4); PLATELET COUNT 127 x10^3/uL (130-400); RED BLOOD COUNT 2.58 x10^6/uL (4.38-5.82); RED CELL DISTRIBUTION WIDTH 18.8 % (9.4-14.8)
[2018-07-11 18:42] LABS: BASOPHILS % (AUTO) 0 % (0-1); EOSINOPHILS # (AUTO) 0.09 x10^3/uL (0-0.4); EOSINOPHILS % (AUTO) 1 % (1-7); LYMPHOCYTES # (AUTO) 0.81 x10^3/uL (1-3.4); LYMPHOCYTES % (AUTO) 5 % (22-44); MD MORPH REVIEW ONLY; MONOCYTES # (AUTO) 0.36 x10^3/uL (0.2-0.8); MONOCYTES % (AUTO) 2 % (2-9); NEUTROPHILS # (AUTO) 15.64 x10^3/uL (1.8-6.8); NEUTROPHILS % (AUTO) 93 % (42-75)
[2018-07-11 18:43] LABS: ANISOCYTOSIS 1+
[2018-07-11 18:44] LABS: ACANTHOCYTES 1+; HYPOCHROMIA 1+; OVALOCYTES 2+; SCHISTOCYTES 1+
[2018-07-11 18:45] LABS: <PLATELET ESTIMATE> DECREASED; <PLT MORPHOLOGY> NORMAL PLT MORPH; BASOPHILLIC STIPPLING 1+
[2018-07-11 19:15] VITALS: BP 131/67
[2018-07-11] MEDS: OXYBUTYNIN CHLORIDE 5 MG TABLET PO SCH (22:07)
[2018-07-11] MEDS: GABAPENTIN 300 MG CAPSULE PO SCH (22:09)
[2018-07-11] MEDS: ATORVASTATIN 40 MG TABLET PO SCH (22:09)
[2018-07-12 01:18] VITALS: BP 121/55
[2018-07-12 05:54] LABS: ALBUMIN 4.6 g/dL (3.4-5.0); ANION GAP 11 mmol/L (5-15); CALCIUM 8.2 mg/dL (8.5-10.1); CHLORIDE 103 mmol/L (98-107)
[2018-07-12 05:55] LABS: CREATININE 3.04 mg/dL (0.7-1.3); MEAN CORPUSCULAR HEMOGLOBIN 27.7 pg (27.5-34.5); MEAN CORPUSCULAR HGB CONC 32.7 g/dL (33.2-36.2); MEAN CORPUSCULAR VOLUME 84.6 fL (81-97); PLATELET COUNT 115 x10^3/uL (130-400); RED BLOOD COUNT 2.54 x10^6/uL (4.38-5.82); RED CELL DISTRIBUTION WIDTH 19.6 % (9.4-14.8)
[2018-07-12] MEDS: PANTOPRAZOLE 40 MG IV IVPush SCH ×2 (06:18→17:54)
[2018-07-12] MEDS: GUAIFENESIN 200 MG TABLET PO SCH ×4 (06:20→22:22)
[2018-07-12 06:36] LABS: ANISOCYTOSIS 1+; BASOPHILS % (AUTO) 0 % (0-1); EOSINOPHILS # (AUTO) 0.33 x10^3/uL (0-0.4); EOSINOPHILS % (AUTO) 2 % (1-7); HYPOCHROMIA 1+; LYMPHOCYTES # (AUTO) 0.94 x10^3/uL (1-3.4); LYMPHOCYTES % (AUTO) 6 % (22-44); MD MORPH REVIEW ONLY; MONOCYTES # (AUTO) 0.69 x10^3/uL (0.2-0.8); MONOCYTES % (AUTO) 4 % (2-9); NEUTROPHILS # (AUTO) 14.95 x10^3/uL (1.8-6.8); NEUTROPHILS % (AUTO) 88 % (42-75); OVALOCYTES 2+; SCHISTOCYTES 1+; TEAR DROPS 1+
[2018-07-12 06:37] LABS: <PLATELET ESTIMATE> DECREASED; <PLT MORPHOLOGY> NORMAL PLT MORPH
[2018-07-12 07:00] VITALS: BP 130/56
[2018-07-12] MEDS: INSULIN LISPRO 100 UNITS/ML, PEN SQ-INSULIN SCH ×4 (07:00→21:00)
[2018-07-12] MEDS: ALBUMIN HUMAN 25% 100 ML IV SCH ×3 (07:00→22:25)
[2018-07-12] MEDS: POLYETHYLENE GLYCOL 17 GM PACKET PO SCH (08:05)
[2018-07-12] MEDS: CARVEDILOL 6.25 MG TABLET PO SCH ×2 (08:45→22:24)
[2018-07-12] MEDS: SODIUM CHLORIDE FLUSH 10ML SYR IVF SCH ×2 (08:46→22:24)
[2018-07-12] MEDS: INSULIN GLARGINE 100 UNITS/ML, PEN SQ-INSULIN SCH ×2 (09:00→21:00)
[2018-07-12] MEDS: TAMSULOSIN 0.4 MG CAP.ER.24H PO SCH (13:42)
[2018-07-12] MEDS: ISOSORBIDE DINITRATE 10 MG TABLET PO SCH ×3 (13:42→22:23)
[2018-07-12] MEDS: FINASTERIDE 5 MG TABLET PO SCH (13:42)
[2018-07-12] MEDS: FERROUS SULFATE 325 MG TABLET PO SCH (13:45)
[2018-07-12 15:13] VITALS: BP 138/58
[2018-07-12 19:10] VITALS: BP 123/66
[2018-07-12] MEDS: OXYBUTYNIN CHLORIDE 5 MG TABLET PO SCH (22:22)
[2018-07-12] MEDS: ATORVASTATIN 40 MG TABLET PO SCH (22:23)
[2018-07-12] MEDS: GABAPENTIN 300 MG CAPSULE PO SCH (22:23)
[2018-07-12] MEDS ORDERED: TEMAZEPAM 15 MG CAPSULE PO ONE (22:30)
[2018-07-13] VITALS (7 sets, daily range): BP systolic 111–135; BP diastolic 52–71
[2018-07-13] MEDS: ALBUMIN HUMAN 25% 100 ML IV SCH ×4 (04:32→20:13)
[2018-07-13 05:16] LABS: BASOPHILS % (AUTO) 0 % (0-1); EOSINOPHILS % (AUTO) 1 % (1-7); LYMPHOCYTES # (AUTO) 0.78 x10^3/uL (1-3.4); LYMPHOCYTES % (AUTO) 5 % (22-44); MD NO; MEAN CORPUSCULAR HEMOGLOBIN 27.7 pg (27.5-34.5); MEAN CORPUSCULAR HGB CONC 32.7 g/dL (33.2-36.2); MEAN CORPUSCULAR VOLUME 84.8 fL (81-97); MEAN PLATELET VOLUME 9.6 fL (7.4-10.4); MONOCYTES # (AUTO) 0.62 x10^3/uL (0.2-0.8); MONOCYTES % (AUTO) 4 % (2-9); NEUTROPHILS # (AUTO) 12.72 x10^3/uL (1.8-6.8); NEUTROPHILS % (AUTO) 89 % (42-75); PLATELET COUNT 104 x10^3/uL (130-400); RED BLOOD COUNT 2.48 x10^6/uL (4.38-5.82); RED CELL DISTRIBUTION WIDTH 18.6 % (9.4-14.8)
[2018-07-13 05:30] LABS: ALBUMIN 4.8 g/dL (3.4-5.0); ANION GAP 10 mmol/L (5-15); CHLORIDE 102 mmol/L (98-107)
[2018-07-13 05:32] LABS: CREATININE 2.51 mg/dL (0.7-1.3)
[2018-07-13] MEDS: GUAIFENESIN 200 MG TABLET PO SCH ×4 (06:47→20:31)
[2018-07-13] MEDS: PANTOPRAZOLE 40 MG IV IVPush SCH ×2 (06:47→18:39)
[2018-07-13] MEDS: INSULIN LISPRO 100 UNITS/ML, PEN SQ-INSULIN SCH ×4 (09:01→20:32)
[2018-07-13] MEDS: FINASTERIDE 5 MG TABLET PO SCH (11:00)
[2018-07-13] MEDS: CARVEDILOL 6.25 MG TABLET PO SCH ×2 (11:00→20:31)
[2018-07-13] MEDS: SODIUM CHLORIDE FLUSH 10ML SYR IVF SCH ×2 (11:00→20:12)
[2018-07-13] MEDS: TAMSULOSIN 0.4 MG CAP.ER.24H PO SCH (11:01)
[2018-07-13] MEDS: ISOSORBIDE DINITRATE 10 MG TABLET PO SCH ×3 (11:01→20:32)
[2018-07-13] MEDS: POLYETHYLENE GLYCOL 17 GM PACKET PO SCH (11:02)
[2018-07-13] MEDS: INSULIN GLARGINE 100 UNITS/ML, PEN SQ-INSULIN SCH ×2 (11:02→20:33)
[2018-07-13 12:15] LABS: INTERNATIONAL NORMALIZED RATIO 1.28 (0.93-1.1); PROTHROMBIN TIME 13.4 Seconds (9.6-11.5)
[2018-07-13] MEDS: ATORVASTATIN 40 MG TABLET PO SCH (20:32)
[2018-07-14] MEDS: ALBUMIN HUMAN 25% 100 ML IV SCH ×4 (02:40→21:36)
[2018-07-14 04:00] VITALS: BP 121/53
[2018-07-14 04:47] LABS: ALBUMIN 5.2 g/dL (3.4-5.0); ANION GAP 9 mmol/L (5-15); CALCIUM 8.7 mg/dL (8.5-10.1); CHLORIDE 102 mmol/L (98-107); CREATININE 2.02 mg/dL (0.7-1.3)
[2018-07-14 04:49] LABS: MEAN CORPUSCULAR VOLUME 84.8 fL (81-97); RED BLOOD COUNT 2.72 x10^6/uL (4.38-5.82); RED CELL DISTRIBUTION WIDTH 17.8 % (9.4-14.8)
[2018-07-14 04:52] LABS: MD YES; MEAN PLATELET VOLUME 9.7 fL (7.4-10.4); PLATELET COUNT 93 x10^3/uL (130-400)
[2018-07-14 05:31] LABS: ANION GAP 8 mmol/L (5-15); CALCIUM 8.7 mg/dL (8.5-10.1); CHLORIDE 103 mmol/L (98-107)
[2018-07-14 05:40] LABS: BAND#(MANUAL) 0.13 x10^3/uL; BANDS%(MANUAL) 1 % (0-7); LYMPHS% (MANUAL) 3 % (22-44); MONOS#(MANUAL) 0.53 x10^3/uL (0.3-2.7); MONOS% (MANUAL) 4 % (2-9); SEG#(MANUAL) 12.24 x10^3/uL (1.8-6.8); SEGS% (MANUAL) 92 % (42-75)
[2018-07-14 05:41] LABS: ANISOCYTOSIS 1+; HYPOCHROMIA 1+; OVALOCYTES 1+
[2018-07-14 05:42] LABS: <PLATELET ESTIMATE> DECREASED; <PLT MORPHOLOGY> NORMAL PLT MORPH
[2018-07-14 05:43] LABS: ACANTHOCYTES 1+
[2018-07-14] MEDS: PANTOPRAZOLE 40 MG IV IVPush SCH ×2 (05:56→18:28)
[2018-07-14] MEDS: INSULIN LISPRO 100 UNITS/ML, PEN SQ-INSULIN SCH ×4 (08:00→21:44)
[2018-07-14] MEDS: GUAIFENESIN 200 MG TABLET PO SCH ×4 (08:14→21:41)
[2018-07-14] MEDS: FINASTERIDE 5 MG TABLET PO SCH (08:14)
[2018-07-14] MEDS: TAMSULOSIN 0.4 MG CAP.ER.24H PO SCH (08:14)
[2018-07-14] MEDS: ISOSORBIDE DINITRATE 10 MG TABLET PO SCH ×3 (08:15→21:41)
[2018-07-14] MEDS: CARVEDILOL 6.25 MG TABLET PO SCH ×2 (08:16→21:42)
[2018-07-14] MEDS: POLYETHYLENE GLYCOL 17 GM PACKET PO SCH (08:16)
[2018-07-14] MEDS: SODIUM CHLORIDE FLUSH 10ML SYR IVF SCH ×2 (08:16→21:42)
[2018-07-14] MEDS: INSULIN GLARGINE 100 UNITS/ML, PEN SQ-INSULIN SCH ×2 (09:00→21:45)
[2018-07-14 11:21] LABS: SCHISTOCYTES 1+
--- NOTE | 2018-07-14 14:55 | NUR ---
Recommend: pureed texture/NTLs, 1:1 assist, no straws. [place] swallow precaution sign posted at bedside. Addendum: 07/14/18 at [address] Amended: Links added.
[2018-07-14] MEDS: FERROUS SULFATE 325 MG TABLET PO SCH (15:36)
[2018-07-14 19:56] VITALS: BP 136/69
[2018-07-14] MEDS: ACETAMINOPHEN 325 MG TABLET PO PRN (21:41)
[2018-07-14] MEDS: ATORVASTATIN 40 MG TABLET PO SCH (21:41)
[2018-07-14] MEDS: AMPICILLIN/SULBACTAM 1,500 MG in SODIUM CHLORIDE 0.9% 50 ML IV SCH (21:45)
[2018-07-14] MEDS ORDERED: TEMAZEPAM 15 MG CAPSULE ONE (22:41)
[2018-07-14] MEDS ORDERED: TEMAZEPAM 15 MG CAPSULE PO PRN (23:00)
[2018-07-15] MEDS ORDERED: MORPHINE SULFATE 4 MG/ML, 1ML IVPush ONE (01:00)
[2018-07-15] MEDS ORDERED: METOPROLOL 1 MG/ML, 5ML IVPush ONE (01:00)
[2018-07-15] MEDS ORDERED: OXYcodone IR 5MG TABLET PO PRN (01:00)
[2018-07-15] MEDS: ALBUMIN HUMAN 25% 100 ML IV SCH ×4 (01:12→23:04)
[2018-07-15 01:37] LABS: ANION GAP 7 mmol/L (5-15); CALCIUM 8.6 mg/dL (8.5-10.1); CHLORIDE 103 mmol/L (98-107); CREATININE 1.97 mg/dL (0.7-1.3)
[2018-07-15 01:41] LABS: TROPONIN I 0.043 ng/mL (0.000-0.045)
[2018-07-15] MEDS ORDERED: LORazepam 2 MG/ML, 1ML IVPush ONE (02:30)
[2018-07-15 02:41] VITALS: BP 145/55
[2018-07-15] MEDS: AMPICILLIN/SULBACTAM 1,500 MG in SODIUM CHLORIDE 0.9% 50 ML IV SCH ×4 (03:14→23:04)
[2018-07-15] MEDS: GUAIFENESIN 200 MG TABLET PO SCH ×4 (05:34→21:21)
[2018-07-15 05:40] LABS: ANION GAP 7 mmol/L (5-15); CALCIUM 8.6 mg/dL (8.5-10.1); CHLORIDE 104 mmol/L (98-107); CREATININE 2.09 mg/dL (0.7-1.3)
[2018-07-15] MEDS: PANTOPRAZOLE 40 MG IV IVPush SCH ×2 (05:41→17:05)
[2018-07-15 05:44] LABS: MEAN CORPUSCULAR HEMOGLOBIN 28.4 pg (27.5-34.5); MEAN CORPUSCULAR HGB CONC 33.2 g/dL (33.2-36.2); MEAN CORPUSCULAR VOLUME 85.7 fL (81-97); MEAN PLATELET VOLUME 10.1 fL (7.4-10.4); PLATELET COUNT 87 x10^3/uL (130-400); RED BLOOD COUNT 2.42 x10^6/uL (4.38-5.82); RED CELL DISTRIBUTION WIDTH 18.5 % (9.4-14.8)
[2018-07-15 06:47] LABS: BASOPHILS % (AUTO) 0 % (0-1); EOSINOPHILS # (AUTO) 0.37 x10^3/uL (0-0.4); EOSINOPHILS % (AUTO) 4 % (1-7); LYMPHOCYTES # (AUTO) 0.47 x10^3/uL (1-3.4); LYMPHOCYTES % (AUTO) 5 % (22-44); MD MORPH REVIEW ONLY; MONOCYTES # (AUTO) 0.48 x10^3/uL (0.2-0.8); MONOCYTES % (AUTO) 5 % (2-9); NEUTROPHILS # (AUTO) 9.04 x10^3/uL (1.8-6.8); NEUTROPHILS % (AUTO) 87 % (42-75)
[2018-07-15 06:48] LABS: ACANTHOCYTES 1+; ANISOCYTOSIS 1+; OVALOCYTES 1+; SCHISTOCYTES 1+
[2018-07-15 06:49] LABS: BASOPHILLIC STIPPLING 1+
[2018-07-15 06:50] LABS: <PLATELET ESTIMATE> DECREASED
[2018-07-15 06:51] LABS: LARGE PLATELETS 1+
[2018-07-15] MEDS: INSULIN LISPRO 100 UNITS/ML, PEN SQ-INSULIN SCH ×4 (07:00→21:19)
[2018-07-15 08:16] VITALS: BP 137/72
[2018-07-15] MEDS: POLYETHYLENE GLYCOL 17 GM PACKET PO SCH (09:00)
[2018-07-15] MEDS: INSULIN GLARGINE 100 UNITS/ML, PEN SQ-INSULIN SCH ×2 (09:00→21:20)
[2018-07-15] MEDS: SODIUM CHLORIDE FLUSH 10ML SYR IVF SCH ×2 (09:05→21:22)
[2018-07-15 10:30] VITALS: BP 134/69
[2018-07-15 10:49] VITALS: BP 127/64
[2018-07-15 12:00] VITALS: BP 116/82
[2018-07-15] MEDS: CYANOCOBALAMIN 1,000 MCG TABLET PO SCH (13:00)
[2018-07-15] MEDS: TAMSULOSIN 0.4 MG CAP.ER.24H PO SCH (13:49)
[2018-07-15] MEDS: CARVEDILOL 6.25 MG TABLET PO SCH ×2 (13:49→21:20)
[2018-07-15] MEDS: FINASTERIDE 5 MG TABLET PO SCH (13:50)
[2018-07-15] MEDS: ISOSORBIDE DINITRATE 10 MG TABLET PO SCH ×3 (13:50→21:21)
[2018-07-15 19:56] VITALS: BP 134/64
[2018-07-15] MEDS: ATORVASTATIN 40 MG TABLET PO SCH (21:20)
[2018-07-16 01:57] VITALS: BP 131/58
[2018-07-16] MEDS: PANTOPRAZOLE 40 MG IV IVPush SCH ×2 (05:20→17:41)
[2018-07-16] MEDS: ALBUMIN HUMAN 25% 100 ML IV SCH ×4 (05:20→23:00)
[2018-07-16] MEDS: AMPICILLIN/SULBACTAM 1,500 MG in SODIUM CHLORIDE 0.9% 50 ML IV SCH ×4 (05:20→23:43)
[2018-07-16] MEDS: GUAIFENESIN 200 MG TABLET PO SCH ×4 (05:20→22:38)
[2018-07-16 07:41] VITALS: BP 131/64
[2018-07-16] MEDS: INSULIN GLARGINE 100 UNITS/ML, PEN SQ-INSULIN SCH ×2 (08:28→22:39)
[2018-07-16] MEDS: INSULIN LISPRO 100 UNITS/ML, PEN SQ-INSULIN SCH ×4 (08:28→22:38)
[2018-07-16] MEDS: POLYETHYLENE GLYCOL 17 GM PACKET PO SCH (08:32)
[2018-07-16] MEDS: SODIUM CHLORIDE FLUSH 10ML SYR IVF SCH ×2 (08:33→22:36)
[2018-07-16] MEDS: ISOSORBIDE DINITRATE 10 MG TABLET PO SCH ×3 (08:44→22:36)
[2018-07-16] MEDS: CYANOCOBALAMIN 1,000 MCG TABLET PO SCH (08:45)
[2018-07-16] MEDS: FINASTERIDE 5 MG TABLET PO SCH (08:47)
[2018-07-16] MEDS: CARVEDILOL 6.25 MG TABLET PO SCH ×2 (08:47→21:00)
[2018-07-16] MEDS: TAMSULOSIN 0.4 MG CAP.ER.24H PO SCH (08:49)
[2018-07-16 10:39] LABS: MEAN CORPUSCULAR HEMOGLOBIN 28.3 pg (27.5-34.5); MEAN CORPUSCULAR HGB CONC 32.9 g/dL (33.2-36.2); MEAN CORPUSCULAR VOLUME 86.1 fL (81-97); MEAN PLATELET VOLUME 10.7 fL (7.4-10.4); PLATELET COUNT 93 x10^3/uL (130-400); RED BLOOD COUNT 2.64 x10^6/uL (4.38-5.82); RED CELL DISTRIBUTION WIDTH 17.5 % (9.4-14.8)
[2018-07-16 10:40] LABS: ALBUMIN 5.3 g/dL (3.4-5.0); ANION GAP 8 mmol/L (5-15); CALCIUM 8.8 mg/dL (8.5-10.1); CHLORIDE 103 mmol/L (98-107)
[2018-07-16 10:44] LABS: CREATININE 2.75 mg/dL (0.7-1.3); HEMOGRAM NOTE RECHECKED
[2018-07-16 10:45] LABS: ALANINE AMINOTRANSFERASE 20 U/L (12-78); ALKALINE PHOSPHATASE 85 U/L (45-117); BILIRUBIN,TOTAL 4.1 mg/dL (0.2-1.0); TOTAL PROTEIN 7.2 g/dL (6.4-8.2)
[2018-07-16 10:53] LABS: BASOPHILS % (AUTO) 0 % (0-1); EOSINOPHILS # (AUTO) 0.35 x10^3/uL (0-0.4); EOSINOPHILS % (AUTO) 3 % (1-7); LYMPHOCYTES % (AUTO) 4 % (22-44); MD SCAN; MONOCYTES # (AUTO) 0.64 x10^3/uL (0.2-0.8); MONOCYTES % (AUTO) 6 % (2-9); NEUTROPHILS # (AUTO) 8.76 x10^3/uL (1.8-6.8); NEUTROPHILS % (AUTO) 86 % (42-75)
[2018-07-16] MEDS: FERROUS SULFATE 220 MG/5 ML ORAL SOL PO SCH (12:40)
[2018-07-16 12:55] VITALS: BP 135/64
[2018-07-16] MEDS: ACETAMINOPHEN 325 MG TABLET PO PRN (14:56)
[2018-07-16 16:17] VITALS: BP 128/63
[2018-07-16] MEDS: ERGOCALCIFEROL 50,000 UNIT CAPSULE PO SCH (17:33)
[2018-07-16 20:00] VITALS: BP 144/67
[2018-07-16] MEDS ORDERED: SIMETHICONE 125 MG CHEW TAB ONE (22:25)
[2018-07-16] MEDS ORDERED: SIMETHICONE 125 MG CHEW TAB PO PRN (22:30)
[2018-07-16] MEDS: ATORVASTATIN 40 MG TABLET PO SCH (22:36)
[2018-07-17] MEDS: ACETAMINOPHEN 325 MG TABLET PO PRN ×2 (01:21→16:47)
[2018-07-17 02:00] VITALS: BP 134/70
[2018-07-17 05:11] LABS: MEAN CORPUSCULAR HEMOGLOBIN 28.4 pg (27.5-34.5); MEAN CORPUSCULAR HGB CONC 32.6 g/dL (33.2-36.2); MEAN PLATELET VOLUME 10.5 fL (7.4-10.4); PLATELET COUNT 95 x10^3/uL (130-400); RED BLOOD COUNT 2.52 x10^6/uL (4.38-5.82); RED CELL DISTRIBUTION WIDTH 17.8 % (9.4-14.8)
[2018-07-17] MEDS: AMPICILLIN/SULBACTAM 1,500 MG in SODIUM CHLORIDE 0.9% 50 ML IV SCH ×2 (05:12→15:10)
[2018-07-17] MEDS: ALBUMIN HUMAN 25% 100 ML IV SCH ×3 (05:12→22:08)
[2018-07-17] MEDS: GUAIFENESIN 200 MG TABLET PO SCH ×4 (05:13→22:05)
[2018-07-17 05:20] LABS: CHLORIDE 103 mmol/L (98-107)
[2018-07-17] MEDS: PANTOPRAZOLE 40 MG IV IVPush SCH (05:22)
[2018-07-17 05:27] LABS: ALANINE AMINOTRANSFERASE 19 U/L (12-78); ALBUMIN 5.3 g/dL (3.4-5.0); ALKALINE PHOSPHATASE 99 U/L (45-117); ANION GAP 12 mmol/L (5-15); BILIRUBIN,TOTAL 3.7 mg/dL (0.2-1.0); CALCIUM 9.2 mg/dL (8.5-10.1); CREATININE 3.18 mg/dL (0.7-1.3); TOTAL PROTEIN 7.4 g/dL (6.4-8.2)
[2018-07-17 05:40] LABS: BASOPHILS # (AUTO) 0.02 x10^3/uL (0-0.1); BASOPHILS % (AUTO) 0 % (0-1); EOSINOPHILS # (AUTO) 0.31 x10^3/uL (0-0.4); EOSINOPHILS % (AUTO) 3 % (1-7); LYMPHOCYTES # (AUTO) 0.41 x10^3/uL (1-3.4); LYMPHOCYTES % (AUTO) 4 % (22-44); MD SCAN; MONOCYTES # (AUTO) 0.63 x10^3/uL (0.2-0.8); MONOCYTES % (AUTO) 7 % (2-9); NEUTROPHILS % (AUTO) 86 % (42-75)
[2018-07-17 06:56] VITALS: BP 122/63
[2018-07-17] MEDS: CARVEDILOL 6.25 MG TABLET PO SCH ×2 (09:21→22:05)
[2018-07-17] MEDS: SODIUM CHLORIDE FLUSH 10ML SYR IVF SCH ×2 (09:22→22:06)
[2018-07-17] MEDS: CYANOCOBALAMIN 1,000 MCG TABLET PO SCH (09:23)
[2018-07-17] MEDS: FINASTERIDE 5 MG TABLET PO SCH (09:24)
[2018-07-17] MEDS: TAMSULOSIN 0.4 MG CAP.ER.24H PO SCH (09:26)
[2018-07-17] MEDS: ISOSORBIDE DINITRATE 10 MG TABLET PO SCH ×3 (09:27→22:05)
[2018-07-17] MEDS: INSULIN GLARGINE 100 UNITS/ML, PEN SQ-INSULIN SCH ×2 (09:28→22:07)
[2018-07-17] MEDS: INSULIN LISPRO 100 UNITS/ML, PEN SQ-INSULIN SCH ×4 (09:29→22:06)
[2018-07-17] MEDS: POLYETHYLENE GLYCOL 17 GM PACKET PO SCH (09:33)
[2018-07-17 14:00] VITALS: BP 125/79
[2018-07-17 16:09] VITALS: BP 126/62
[2018-07-17] MEDS: PANTOPROZOLE 40MG TABLET PO SCH (16:47)
[2018-07-17 20:49] VITALS: BP 121/64
[2018-07-17 22:03] VITALS: BP 114/63
[2018-07-17] MEDS: ATORVASTATIN 40 MG TABLET PO SCH (22:05)
[2018-07-18 00:52] VITALS: BP 121/65
[2018-07-18] MEDS: TEMAZEPAM 15 MG CAPSULE PO PRN ×2 (01:50→20:57)
[2018-07-18] MEDS: AMPICILLIN/SULBACTAM 1,500 MG in SODIUM CHLORIDE 0.9% 50 ML IV SCH ×2 (04:04→16:04)
[2018-07-18] MEDS: ALBUMIN HUMAN 25% 100 ML IV SCH (05:04)
[2018-07-18] MEDS: GUAIFENESIN 200 MG TABLET PO SCH ×4 (05:33→20:56)
[2018-07-18] MEDS: PANTOPROZOLE 40MG TABLET PO SCH ×2 (05:33→16:05)
[2018-07-18 07:48] VITALS: BP 119/55
[2018-07-18] MEDS: INSULIN GLARGINE 100 UNITS/ML, PEN SQ-INSULIN SCH ×2 (08:07→20:56)
[2018-07-18] MEDS: INSULIN LISPRO 100 UNITS/ML, PEN SQ-INSULIN SCH ×4 (08:08→20:56)
[2018-07-18] MEDS: SODIUM CHLORIDE FLUSH 10ML SYR IVF SCH ×2 (09:00→20:55)
[2018-07-18 09:54] LABS: ALANINE AMINOTRANSFERASE 28 U/L (12-78); ALBUMIN 5.6 g/dL (3.4-5.0); ANION GAP 10 mmol/L (5-15); CALCIUM 9.6 mg/dL (8.5-10.1); CHLORIDE 101 mmol/L (98-107); CREATININE 3.45 mg/dL (0.7-1.3); MEAN CORPUSCULAR HEMOGLOBIN 29.1 pg (27.5-34.5); MEAN CORPUSCULAR HGB CONC 33.6 g/dL (33.2-36.2); MEAN CORPUSCULAR VOLUME 86.5 fL (81-97); MEAN PLATELET VOLUME 10.3 fL (7.4-10.4); PLATELET COUNT 104 x10^3/uL (130-400); RED BLOOD COUNT 2.52 x10^6/uL (4.38-5.82); RED CELL DISTRIBUTION WIDTH 18.4 % (9.4-14.8)
[2018-07-18 09:56] LABS: ALKALINE PHOSPHATASE 142 U/L (45-117); BILIRUBIN,TOTAL 3.6 mg/dL (0.2-1.0)
[2018-07-18 10:02] LABS: BASOPHILS # (AUTO) 0.03 x10^3/uL (0-0.1); BASOPHILS % (AUTO) 0 % (0-1); EOSINOPHILS # (AUTO) 0.21 x10^3/uL (0-0.4); EOSINOPHILS % (AUTO) 3 % (1-7); LYMPHOCYTES # (AUTO) 0.52 x10^3/uL (1-3.4); LYMPHOCYTES % (AUTO) 6 % (22-44); MD SCAN; MONOCYTES # (AUTO) 0.59 x10^3/uL (0.2-0.8); MONOCYTES % (AUTO) 7 % (2-9); NEUTROPHILS # (AUTO) 7.14 x10^3/uL (1.8-6.8); NEUTROPHILS % (AUTO) 84 % (42-75)
[2018-07-18] MEDS: POLYETHYLENE GLYCOL 17 GM PACKET PO SCH (10:55)
[2018-07-18] MEDS: CYANOCOBALAMIN 1,000 MCG TABLET PO SCH (10:56)
[2018-07-18] MEDS: TAMSULOSIN 0.4 MG CAP.ER.24H PO SCH (10:56)
[2018-07-18] MEDS: FINASTERIDE 5 MG TABLET PO SCH (10:56)
[2018-07-18] MEDS: CARVEDILOL 6.25 MG TABLET PO SCH ×2 (10:57→20:55)
[2018-07-18] MEDS: ISOSORBIDE DINITRATE 10 MG TABLET PO SCH ×3 (10:57→20:55)
[2018-07-18 12:57] VITALS: BP 131/56
[2018-07-18] MEDS: FERROUS SULFATE 220 MG/5 ML ORAL SOL PO SCH (13:19)
[2018-07-18] MEDS ORDERED: AMIODARONE 150 MG in DEXTROSE 5% 100 ML IV ONE (14:30)
[2018-07-18] MEDS ORDERED: FILTER 0.22 MICRON IV PRN (14:30)
[2018-07-18] MEDS: AMIODARONE 900 MG in DEXTROSE 5% 482 ML IV PRN (15:47)
[2018-07-18 20:42] VITALS: BP 132/70
[2018-07-18] MEDS: ATORVASTATIN 40 MG TABLET PO SCH (20:56)
[2018-07-18] MEDS: ACETAMINOPHEN 325 MG TABLET PO PRN (20:57)
[2018-07-19 02:00] VITALS: BP 146/80
[2018-07-19] MEDS: AMPICILLIN/SULBACTAM 1,500 MG in SODIUM CHLORIDE 0.9% 50 ML IV SCH ×2 (04:25→16:14)
[2018-07-19] MEDS: PANTOPROZOLE 40MG TABLET PO SCH ×2 (06:00→16:16)
[2018-07-19] MEDS: GUAIFENESIN 200 MG TABLET PO SCH ×4 (06:00→20:12)
[2018-07-19] MEDS: INSULIN LISPRO 100 UNITS/ML, PEN SQ-INSULIN SCH ×4 (07:00→20:14)
[2018-07-19] MEDS: AMIODARONE 900 MG in DEXTROSE 5% 482 ML IV PRN (07:09)
[2018-07-19 07:39] VITALS: BP 134/66
[2018-07-19] MEDS: CYANOCOBALAMIN 1,000 MCG TABLET PO SCH (09:00)
[2018-07-19] MEDS: POLYETHYLENE GLYCOL 17 GM PACKET PO SCH (09:00)
[2018-07-19] MEDS: ISOSORBIDE DINITRATE 10 MG TABLET PO SCH ×3 (09:00→20:11)
[2018-07-19] MEDS: FINASTERIDE 5 MG TABLET PO SCH (09:00)
[2018-07-19] MEDS: SODIUM CHLORIDE FLUSH 10ML SYR IVF SCH ×2 (09:00→20:14)
[2018-07-19] MEDS: TAMSULOSIN 0.4 MG CAP.ER.24H PO SCH (09:00)
[2018-07-19] MEDS: CARVEDILOL 6.25 MG TABLET PO SCH ×2 (09:00→20:12)
[2018-07-19] MEDS: INSULIN GLARGINE 100 UNITS/ML, PEN SQ-INSULIN SCH ×2 (09:00→20:13)
[2018-07-19 09:32] LABS: ANION GAP 13 mmol/L (5-15); CALCIUM 8.9 mg/dL (8.5-10.1); CHLORIDE 99 mmol/L (98-107); CREATININE 4.59 mg/dL (0.7-1.3)
[2018-07-19 10:00] LABS: BASOPHILS % (AUTO) 0 % (0-1); EOSINOPHILS # (AUTO) 0.32 x10^3/uL (0-0.4); EOSINOPHILS % (AUTO) 3 % (1-7); LYMPHOCYTES # (AUTO) 0.65 x10^3/uL (1-3.4); LYMPHOCYTES % (AUTO) 7 % (22-44); MD MORPH REVIEW ONLY; MEAN CORPUSCULAR HEMOGLOBIN 28.9 pg (27.5-34.5); MEAN CORPUSCULAR HGB CONC 33.3 g/dL (33.2-36.2); MEAN CORPUSCULAR VOLUME 86.8 fL (81-97); MEAN PLATELET VOLUME 10.8 fL (7.4-10.4); MONOCYTES # (AUTO) 0.62 x10^3/uL (0.2-0.8); MONOCYTES % (AUTO) 7 % (2-9); NEUTROPHILS # (AUTO) 7.78 x10^3/uL (1.8-6.8); NEUTROPHILS % (AUTO) 83 % (42-75); PLATELET COUNT 98 x10^3/uL (130-400); RED BLOOD COUNT 2.61 x10^6/uL (4.38-5.82); RED CELL DISTRIBUTION WIDTH 19.1 % (9.4-14.8)
[2018-07-19 10:32] LABS: ANISOCYTOSIS 1+
[2018-07-19 10:33] LABS: ACANTHOCYTES 1+; OVALOCYTES 1+; SCHISTOCYTES 1+
[2018-07-19 10:34] LABS: <PLATELET ESTIMATE> DECREASED; LARGE PLATELETS 1+
[2018-07-19] MEDS ORDERED: FUROSEMIDE 40 MG/4 ML IV ONE (12:30)
[2018-07-19] MEDS ORDERED: TAMSULOSIN 0.4 MG CAP.ER.24H PO ONE (12:30)
[2018-07-19] MEDS ORDERED: CARVEDILOL 6.25 MG TABLET PO ONE (12:30)
--- NOTE | 2018-07-19 13:23 | NUR ---
[employer] TANKER DRIVER recommend: ground and thins following strategies: MEDICATIONS FLOATED UPRIGHT AT 90 DEGREES ENSURE PT FULLY AWAKE/ALERT 1:1 ASSIST SMALL BITES/SMALL SINGLE SIPS HOLD PO WITH ANY DIFFICULTY OR CHANGE IN STATUS orange sheet posted Addendum: 07/19/18 at 1324 by CLAUDETTE CONCEPCION Amended: Links added.
[2018-07-19 14:39] VITALS: BP 137/69
[2018-07-19] MEDS: ACETAMINOPHEN 325 MG TABLET PO PRN (14:48)
[2018-07-19 18:45] VITALS: BP 104/50
[2018-07-19] MEDS: ATORVASTATIN 40 MG TABLET PO SCH (20:12)
[2018-07-19] MEDS: TEMAZEPAM 15 MG CAPSULE PO PRN (20:13)
[2018-07-20] MEDS: AMPICILLIN/SULBACTAM 1,500 MG in SODIUM CHLORIDE 0.9% 50 ML IV SCH ×2 (04:00→16:50)
[2018-07-20 04:04] VITALS: BP 120/59
[2018-07-20] MEDS: ACETAMINOPHEN 325 MG TABLET PO PRN ×2 (04:07→21:15)
[2018-07-20] MEDS: GUAIFENESIN 200 MG TABLET PO SCH ×4 (05:44→21:13)
[2018-07-20] MEDS: PANTOPROZOLE 40MG TABLET PO SCH ×2 (05:44→16:51)
[2018-07-20 06:05] LABS: MEAN CORPUSCULAR HEMOGLOBIN 28.5 pg (27.5-34.5); MEAN CORPUSCULAR HGB CONC 33.5 g/dL (33.2-36.2); MEAN CORPUSCULAR VOLUME 85.1 fL (81-97); MEAN PLATELET VOLUME 10.6 fL (7.4-10.4); PLATELET COUNT 102 x10^3/uL (130-400); RED CELL DISTRIBUTION WIDTH 18.2 % (9.4-14.8)
[2018-07-20 06:15] LABS: ANION GAP 14 mmol/L (5-15); CALCIUM 9.7 mg/dL (8.5-10.1); CHLORIDE 101 mmol/L (98-107)
[2018-07-20 06:16] LABS: CREATININE 5.31 mg/dL (0.7-1.3)
[2018-07-20 08:13] VITALS: BP 116/63
[2018-07-20] MEDS: INSULIN GLARGINE 100 UNITS/ML, PEN SQ-INSULIN SCH ×2 (08:31→21:52)
[2018-07-20] MEDS: CYANOCOBALAMIN 1,000 MCG TABLET PO SCH (08:31)
[2018-07-20] MEDS: INSULIN LISPRO 100 UNITS/ML, PEN SQ-INSULIN SCH ×4 (08:31→21:53)
[2018-07-20] MEDS: TAMSULOSIN 0.4 MG CAP.ER.24H PO SCH (08:32)
[2018-07-20] MEDS: SODIUM CHLORIDE FLUSH 10ML SYR IVF SCH ×2 (08:32→21:13)
[2018-07-20] MEDS: FINASTERIDE 5 MG TABLET PO SCH (08:32)
[2018-07-20 08:33] LABS: BASOPHILS # (AUTO) 0.01 x10^3/uL (0-0.1); BASOPHILS % (AUTO) 0 % (0-1); EOSINOPHILS # (AUTO) 0.33 x10^3/uL (0-0.4); EOSINOPHILS % (AUTO) 3 % (1-7); LYMPHOCYTES # (AUTO) 0.64 x10^3/uL (1-3.4); LYMPHOCYTES % (AUTO) 6 % (22-44); MD SCAN; MONOCYTES # (AUTO) 0.52 x10^3/uL (0.2-0.8); MONOCYTES % (AUTO) 5 % (2-9); NEUTROPHILS # (AUTO) 8.63 x10^3/uL (1.8-6.8); NEUTROPHILS % (AUTO) 85 % (42-75)
[2018-07-20] MEDS: POLYETHYLENE GLYCOL 17 GM PACKET PO SCH (08:45)
[2018-07-20] MEDS: CARVEDILOL 6.25 MG TABLET PO SCH ×2 (09:00→21:13)
[2018-07-20 13:53] VITALS: BP 125/50
[2018-07-20] MEDS: FERROUS SULFATE 220 MG/5 ML ORAL SOL PO SCH (14:19)
[2018-07-20] MEDS: TEMAZEPAM 15 MG CAPSULE PO PRN (16:58)
[2018-07-20 19:03] VITALS: BP 110/66
[2018-07-20 21:11] VITALS: BP 126/58
[2018-07-20] MEDS: ATORVASTATIN 40 MG TABLET PO SCH (21:13)
[2018-07-21 00:59] VITALS: BP 102/51
[2018-07-21] MEDS: ACETAMINOPHEN 325 MG TABLET PO PRN (04:13)
[2018-07-21] MEDS: AMPICILLIN/SULBACTAM 1,500 MG in SODIUM CHLORIDE 0.9% 50 ML IV SCH (04:13)
[2018-07-21] MEDS: PANTOPROZOLE 40MG TABLET PO SCH ×2 (05:31→18:06)
[2018-07-21] MEDS: GUAIFENESIN 200 MG TABLET PO SCH ×4 (05:31→21:18)
[2018-07-21 06:02] LABS: BASOPHILS # (AUTO) 0.01 x10^3/uL (0-0.1); BASOPHILS % (AUTO) 0 % (0-1); EOSINOPHILS # (AUTO) 0.35 x10^3/uL (0-0.4); EOSINOPHILS % (AUTO) 3 % (1-7); LYMPHOCYTES # (AUTO) 0.64 x10^3/uL (1-3.4); LYMPHOCYTES % (AUTO) 6 % (22-44); MD NO; MEAN CORPUSCULAR HEMOGLOBIN 28.4 pg (27.5-34.5); MEAN CORPUSCULAR HGB CONC 32.8 g/dL (33.2-36.2); MEAN CORPUSCULAR VOLUME 86.4 fL (81-97); MEAN PLATELET VOLUME 10.6 fL (7.4-10.4); MONOCYTES # (AUTO) 0.68 x10^3/uL (0.2-0.8); MONOCYTES % (AUTO) 6 % (2-9); NEUTROPHILS # (AUTO) 8.86 x10^3/uL (1.8-6.8); NEUTROPHILS % (AUTO) 84 % (42-75); PLATELET COUNT 101 x10^3/uL (130-400); RED BLOOD COUNT 2.73 x10^6/uL (4.38-5.82); RED CELL DISTRIBUTION WIDTH 19.1 % (9.4-14.8)
[2018-07-21 06:07] LABS: ALANINE AMINOTRANSFERASE 41 U/L (12-78); ALBUMIN 4.5 g/dL (3.4-5.0); ANION GAP 11 mmol/L (5-15); CALCIUM 9.8 mg/dL (8.5-10.1); CHLORIDE 101 mmol/L (98-107); CREATININE 4.24 mg/dL (0.7-1.3)
[2018-07-21 06:09] LABS: ALKALINE PHOSPHATASE 187 U/L (45-117); TOTAL PROTEIN 7.3 g/dL (6.4-8.2)
[2018-07-21 08:03] VITALS: BP 106/56
[2018-07-21] MEDS: INSULIN LISPRO 100 UNITS/ML, PEN SQ-INSULIN SCH ×4 (09:21→21:00)
[2018-07-21] MEDS: TAMSULOSIN 0.4 MG CAP.ER.24H PO SCH (09:21)
[2018-07-21] MEDS: INSULIN GLARGINE 100 UNITS/ML, PEN SQ-INSULIN SCH ×2 (09:21→21:19)
[2018-07-21] MEDS: SODIUM CHLORIDE FLUSH 10ML SYR IVF SCH ×2 (09:22→21:17)
[2018-07-21] MEDS: POLYETHYLENE GLYCOL 17 GM PACKET PO SCH (09:22)
[2018-07-21] MEDS: FINASTERIDE 5 MG TABLET PO SCH (09:22)
[2018-07-21] MEDS: CYANOCOBALAMIN 1,000 MCG TABLET PO SCH (09:22)
[2018-07-21] MEDS: CARVEDILOL 6.25 MG TABLET PO SCH ×2 (09:22→21:18)
[2018-07-21 13:59] VITALS: BP 132/71
[2018-07-21 19:07] VITALS: BP 126/57
[2018-07-21] MEDS: ATORVASTATIN 40 MG TABLET PO SCH (21:18)
[2018-07-21] MEDS: TEMAZEPAM 15 MG CAPSULE PO PRN (21:18)
[2018-07-22 01:24] VITALS: BP 119/64
[2018-07-22] MEDS: PANTOPROZOLE 40MG TABLET PO SCH ×2 (05:48→16:00)
[2018-07-22] MEDS: GUAIFENESIN 200 MG TABLET PO SCH ×4 (05:48→21:41)
[2018-07-22 06:12] LABS: BASOPHILS # (AUTO) 0.01 x10^3/uL (0-0.1); BASOPHILS % (AUTO) 0 % (0-1); EOSINOPHILS # (AUTO) 0.35 x10^3/uL (0-0.4); EOSINOPHILS % (AUTO) 4 % (1-7); LYMPHOCYTES # (AUTO) 0.61 x10^3/uL (1-3.4); LYMPHOCYTES % (AUTO) 6 % (22-44); MD NO; MEAN CORPUSCULAR HEMOGLOBIN 28.8 pg (27.5-34.5); MEAN CORPUSCULAR HGB CONC 33.7 g/dL (33.2-36.2); MEAN CORPUSCULAR VOLUME 85.6 fL (81-97); MEAN PLATELET VOLUME 10.9 fL (7.4-10.4); MONOCYTES # (AUTO) 0.51 x10^3/uL (0.2-0.8); MONOCYTES % (AUTO) 5 % (2-9); NEUTROPHILS # (AUTO) 8.62 x10^3/uL (1.8-6.8); NEUTROPHILS % (AUTO) 85 % (42-75); PLATELET COUNT 112 x10^3/uL (130-400); RED BLOOD COUNT 2.71 x10^6/uL (4.38-5.82); RED CELL DISTRIBUTION WIDTH 18.6 % (9.4-14.8)
[2018-07-22 06:22] LABS: ANION GAP 12 mmol/L (5-15); CALCIUM 9.5 mg/dL (8.5-10.1); CHLORIDE 102 mmol/L (98-107); CREATININE 4.32 mg/dL (0.7-1.3)
[2018-07-22] MEDS: INSULIN LISPRO 100 UNITS/ML, PEN SQ-INSULIN SCH ×4 (07:00→21:00)
[2018-07-22 07:39] VITALS: BP 129/64
[2018-07-22] MEDS: SODIUM CHLORIDE FLUSH 10ML SYR IVF SCH ×2 (08:08→21:41)
[2018-07-22] MEDS: INSULIN GLARGINE 100 UNITS/ML, PEN SQ-INSULIN SCH ×2 (08:11→21:44)
[2018-07-22] MEDS: FINASTERIDE 5 MG TABLET PO SCH (08:11)
[2018-07-22] MEDS: POLYETHYLENE GLYCOL 17 GM PACKET PO SCH (08:11)
[2018-07-22] MEDS: CYANOCOBALAMIN 1,000 MCG TABLET PO SCH (08:11)
[2018-07-22] MEDS: CARVEDILOL 6.25 MG TABLET PO SCH ×2 (08:12→21:41)
[2018-07-22] MEDS: TAMSULOSIN 0.4 MG CAP.ER.24H PO SCH (08:12)
[2018-07-22] MEDS: ACETAMINOPHEN 325 MG TABLET PO PRN (10:59)
[2018-07-22] MEDS: FERROUS SULFATE 220 MG/5 ML ORAL SOL PO SCH (12:25)
[2018-07-22 13:11] VITALS: BP 120/68
--- NOTE | 2018-07-22 15:36 | NUR ---
GROUND/ THINS *MEDICATIONS FLOATED *UPRIGHT AT 90 DEGREES * SMALL BITES/SMALL SINGLE SIPS * Straws ok [place] sheet posted Addendum: 07/22/18 at [address] Amended: Links added.
[2018-07-22 20:00] VITALS: BP 124/55
[2018-07-22] MEDS: TEMAZEPAM 15 MG CAPSULE PO PRN (21:41)
[2018-07-22] MEDS: ATORVASTATIN 40 MG TABLET PO SCH (21:41)
[2018-07-23 02:00] VITALS: BP 110/65
[2018-07-23] MEDS: GUAIFENESIN 200 MG TABLET PO SCH ×4 (05:15→23:54)
[2018-07-23] MEDS: PANTOPROZOLE 40MG TABLET PO SCH ×2 (05:15→16:33)
[2018-07-23 06:22] LABS: ALANINE AMINOTRANSFERASE 45 U/L (12-78); ALBUMIN 3.8 g/dL (3.4-5.0); ANION GAP 10 mmol/L (5-15); CALCIUM 9.5 mg/dL (8.5-10.1); CHLORIDE 102 mmol/L (98-107)
[2018-07-23 06:24] LABS: ALKALINE PHOSPHATASE 203 U/L (45-117); BILIRUBIN,TOTAL 1.6 mg/dL (0.2-1.0)
[2018-07-23 06:25] LABS: MEAN CORPUSCULAR HEMOGLOBIN 28.5 pg (27.5-34.5); MEAN CORPUSCULAR HGB CONC 33.1 g/dL (33.2-36.2); MEAN CORPUSCULAR VOLUME 85.9 fL (81-97); MEAN PLATELET VOLUME 10.4 fL (7.4-10.4); PLATELET COUNT 116 x10^3/uL (130-400); RED BLOOD COUNT 2.65 x10^6/uL (4.38-5.82); RED CELL DISTRIBUTION WIDTH 18.5 % (9.4-14.8)
[2018-07-23] MEDS: INSULIN LISPRO 100 UNITS/ML, PEN SQ-INSULIN SCH ×4 (07:00→21:38)
[2018-07-23 07:14] VITALS: BP 117/66
[2018-07-23 07:27] LABS: BASOPHILS # (AUTO) 0.03 x10^3/uL (0-0.1); BASOPHILS % (AUTO) 0 % (0-1); EOSINOPHILS # (AUTO) 0.11 x10^3/uL (0-0.4); EOSINOPHILS % (AUTO) 1 % (1-7); LYMPHOCYTES # (AUTO) 0.79 x10^3/uL (1-3.4); LYMPHOCYTES % (AUTO) 9 % (22-44); MD MORPH REVIEW ONLY; MONOCYTES # (AUTO) 0.38 x10^3/uL (0.2-0.8); MONOCYTES % (AUTO) 5 % (2-9); NEUTROPHILS # (AUTO) 7.22 x10^3/uL (1.8-6.8); NEUTROPHILS % (AUTO) 85 % (42-75)
[2018-07-23 07:28] LABS: <PLATELET ESTIMATE> DECREASED; ACANTHOCYTES 1+; ANISOCYTOSIS 1+; ECHINOCYTES 1+; LARGE PLATELETS 1+; OVALOCYTES 1+; SCHISTOCYTES 1+
[2018-07-23] MEDS: TAMSULOSIN 0.4 MG CAP.ER.24H PO SCH (08:21)
[2018-07-23] MEDS: CYANOCOBALAMIN 1,000 MCG TABLET PO SCH (08:21)
[2018-07-23] MEDS: FINASTERIDE 5 MG TABLET PO SCH (08:21)
[2018-07-23] MEDS: CARVEDILOL 6.25 MG TABLET PO SCH ×2 (08:21→23:00)
[2018-07-23] MEDS: INSULIN GLARGINE 100 UNITS/ML, PEN SQ-INSULIN SCH ×2 (08:22→22:59)
[2018-07-23] MEDS: POLYETHYLENE GLYCOL 17 GM PACKET PO SCH (08:26)
[2018-07-23] MEDS: SODIUM CHLORIDE FLUSH 10ML SYR IVF SCH ×2 (08:26→23:00)
[2018-07-23 12:50] VITALS: BP 115/64
--- NOTE | 2018-07-23 13:35 | NUR ---
SPORT INTERN recommend: CHOPPED/ THINS -straws ok -up at 90 degrees -alternate solids/ liquids orange sheet posted for diet recommendations Addendum: 07/23/18 at [address] Amended: Links added.
[2018-07-23 14:15] LABS: BASOPHILS # (AUTO) 0.02 x10^3/uL (0-0.1); BASOPHILS % (AUTO) 0 % (0-1); EOSINOPHILS # (AUTO) 0.16 x10^3/uL (0-0.4); EOSINOPHILS % (AUTO) 2 % (1-7); LYMPHOCYTES # (AUTO) 0.68 x10^3/uL (1-3.4); LYMPHOCYTES % (AUTO) 8 % (22-44); MD NO; MEAN CORPUSCULAR HGB CONC 32.7 g/dL (33.2-36.2); MEAN CORPUSCULAR VOLUME 85.8 fL (81-97); MEAN PLATELET VOLUME 9.2 fL (7.4-10.4); MONOCYTES % (AUTO) 5 % (2-9); NEUTROPHILS # (AUTO) 7.69 x10^3/uL (1.8-6.8); NEUTROPHILS % (AUTO) 86 % (42-75); PLATELET COUNT 110 x10^3/uL (130-400); RED BLOOD COUNT 2.55 x10^6/uL (4.38-5.82)
[2018-07-23] MEDS: ERGOCALCIFEROL 50,000 UNIT CAPSULE PO SCH (17:55)
[2018-07-23 22:45] VITALS: BP 123/65
[2018-07-23] MEDS: ATORVASTATIN 40 MG TABLET PO SCH (22:59)
[2018-07-24 01:49] VITALS: BP 106/59
[2018-07-24 05:08] LABS: BASOPHILS # (AUTO) 0.01 x10^3/uL (0-0.1); BASOPHILS % (AUTO) 0 % (0-1); EOSINOPHILS # (AUTO) 0.17 x10^3/uL (0-0.4); EOSINOPHILS % (AUTO) 2 % (1-7); LYMPHOCYTES # (AUTO) 0.71 x10^3/uL (1-3.4); LYMPHOCYTES % (AUTO) 8 % (22-44); MD NO; MEAN CORPUSCULAR HEMOGLOBIN 27.4 pg (27.5-34.5); MEAN CORPUSCULAR HGB CONC 31.8 g/dL (33.2-36.2); MEAN CORPUSCULAR VOLUME 85.9 fL (81-97); MONOCYTES # (AUTO) 0.37 x10^3/uL (0.2-0.8); MONOCYTES % (AUTO) 5 % (2-9); NEUTROPHILS # (AUTO) 7.15 x10^3/uL (1.8-6.8); NEUTROPHILS % (AUTO) 85 % (42-75); PLATELET COUNT 135 x10^3/uL (130-400); RED BLOOD COUNT 2.71 x10^6/uL (4.38-5.82); RED CELL DISTRIBUTION WIDTH 18.7 % (9.4-14.8)
[2018-07-24 05:10] LABS: ALANINE AMINOTRANSFERASE 68 U/L (12-78); ALBUMIN 3.9 g/dL (3.4-5.0); ANION GAP 10 mmol/L (5-15); CALCIUM 8.7 mg/dL (8.5-10.1); CHLORIDE 99 mmol/L (98-107); CREATININE 2.73 mg/dL (0.7-1.3)
[2018-07-24 05:12] LABS: ALKALINE PHOSPHATASE 235 U/L (45-117); BILIRUBIN,TOTAL 1.5 mg/dL (0.2-1.0); TOTAL PROTEIN 7.4 g/dL (6.4-8.2)
[2018-07-24] MEDS: GUAIFENESIN 200 MG TABLET PO SCH ×4 (05:41→21:43)
[2018-07-24] MEDS: PANTOPROZOLE 40MG TABLET PO SCH ×2 (05:41→16:41)
[2018-07-24 06:30] VITALS: BP 106/62
[2018-07-24] MEDS: INSULIN LISPRO 100 UNITS/ML, PEN SQ-INSULIN SCH ×4 (07:00→21:00)
[2018-07-24] MEDS: SODIUM CHLORIDE FLUSH 10ML SYR IVF SCH ×2 (09:00→22:19)
[2018-07-24] MEDS: TAMSULOSIN 0.4 MG CAP.ER.24H PO SCH (09:00)
[2018-07-24] MEDS: CARVEDILOL 6.25 MG TABLET PO SCH ×2 (09:00→21:43)
[2018-07-24] MEDS: CYANOCOBALAMIN 1,000 MCG TABLET PO SCH (09:00)
[2018-07-24] MEDS: FINASTERIDE 5 MG TABLET PO SCH (09:00)
[2018-07-24] MEDS: POLYETHYLENE GLYCOL 17 GM PACKET PO SCH (09:00)
[2018-07-24] MEDS: INSULIN GLARGINE 100 UNITS/ML, PEN SQ-INSULIN SCH ×2 (09:01→21:44)
[2018-07-24] MEDS: FERROUS SULFATE 220 MG/5 ML ORAL SOL PO SCH (12:26)
[2018-07-24 13:15] VITALS: BP 107/63
[2018-07-24 20:00] VITALS: BP 122/64
[2018-07-24] MEDS: ATORVASTATIN 40 MG TABLET PO SCH (21:43)
[2018-07-24] MEDS: TEMAZEPAM 15 MG CAPSULE PO PRN (22:20)
[2018-07-25 02:00] VITALS: BP 108/64
[2018-07-25] MEDS: GUAIFENESIN 200 MG TABLET PO SCH ×4 (06:07→20:48)
[2018-07-25] MEDS: PANTOPROZOLE 40MG TABLET PO SCH ×2 (06:07→16:26)
[2018-07-25 06:31] LABS: MEAN CORPUSCULAR HEMOGLOBIN 28.4 pg (27.5-34.5); MEAN CORPUSCULAR HGB CONC 32.8 g/dL (33.2-36.2); MEAN CORPUSCULAR VOLUME 86.7 fL (81-97); MEAN PLATELET VOLUME 9.9 fL (7.4-10.4); PLATELET COUNT 146 x10^3/uL (130-400); RED BLOOD COUNT 2.57 x10^6/uL (4.38-5.82); RED CELL DISTRIBUTION WIDTH 18.9 % (9.4-14.8)
[2018-07-25 06:39] LABS: ALBUMIN 3.8 g/dL (3.4-5.0); ANION GAP 10 mmol/L (5-15); CALCIUM 9.5 mg/dL (8.5-10.1); CHLORIDE 102 mmol/L (98-107); CREATININE 3.43 mg/dL (0.7-1.3)
[2018-07-25 06:49] LABS: BASOPHILS # (AUTO) 0.01 x10^3/uL (0-0.1); BASOPHILS % (AUTO) 0 % (0-1); EOSINOPHILS # (AUTO) 0.23 x10^3/uL (0-0.4); EOSINOPHILS % (AUTO) 3 % (1-7); LYMPHOCYTES # (AUTO) 0.93 x10^3/uL (1-3.4); LYMPHOCYTES % (AUTO) 13 % (22-44); MD SCAN; MONOCYTES # (AUTO) 0.38 x10^3/uL (0.2-0.8); MONOCYTES % (AUTO) 5 % (2-9); NEUTROPHILS # (AUTO) 5.46 x10^3/uL (1.8-6.8); NEUTROPHILS % (AUTO) 78 % (42-75)
[2018-07-25 07:56] VITALS: BP 101/57
[2018-07-25] MEDS: POLYETHYLENE GLYCOL 17 GM PACKET PO SCH (09:00)
[2018-07-25] MEDS: TAMSULOSIN 0.4 MG CAP.ER.24H PO SCH (09:11)
[2018-07-25] MEDS: FINASTERIDE 5 MG TABLET PO SCH (09:11)
[2018-07-25] MEDS: CYANOCOBALAMIN 1,000 MCG TABLET PO SCH (09:12)
[2018-07-25] MEDS: CARVEDILOL 6.25 MG TABLET PO SCH ×2 (09:12→20:58)
[2018-07-25] MEDS: INSULIN LISPRO 100 UNITS/ML, PEN SQ-INSULIN SCH ×4 (09:13→20:49)
[2018-07-25] MEDS: SODIUM CHLORIDE FLUSH 10ML SYR IVF SCH ×2 (09:13→20:48)
[2018-07-25] MEDS: INSULIN GLARGINE 100 UNITS/ML, PEN SQ-INSULIN SCH ×2 (09:50→20:50)
[2018-07-25 13:59] VITALS: BP 95/53
[2018-07-25 19:14] VITALS: BP 93/57
[2018-07-25] MEDS: ATORVASTATIN 40 MG TABLET PO SCH (20:48)
[2018-07-26] MEDS: TEMAZEPAM 15 MG CAPSULE PO PRN ×2 (00:12→22:46)
[2018-07-26 00:46] VITALS: BP 101/63
[2018-07-26 05:59] LABS: MEAN CORPUSCULAR HEMOGLOBIN 27.3 pg (27.5-34.5); MEAN CORPUSCULAR HGB CONC 31.7 g/dL (33.2-36.2); MEAN PLATELET VOLUME 9.6 fL (7.4-10.4); PLATELET COUNT 151 x10^3/uL (130-400); RED BLOOD COUNT 2.63 x10^6/uL (4.38-5.82); RED CELL DISTRIBUTION WIDTH 18.6 % (9.4-14.8)
[2018-07-26 06:01] LABS: CHLORIDE 100 mmol/L (98-107)
[2018-07-26 06:14] LABS: ALBUMIN 3.8 g/dL (3.4-5.0); ANION GAP 5 mmol/L (5-15); CREATININE 2.45 mg/dL (0.7-1.3)
[2018-07-26 06:20] LABS: BASOPHILS # (AUTO) 0.02 x10^3/uL (0-0.1); BASOPHILS % (AUTO) 0 % (0-1); EOSINOPHILS # (AUTO) 0.26 x10^3/uL (0-0.4); EOSINOPHILS % (AUTO) 4 % (1-7); LYMPHOCYTES # (AUTO) 0.88 x10^3/uL (1-3.4); LYMPHOCYTES % (AUTO) 14 % (22-44); MD SCAN; MONOCYTES # (AUTO) 0.38 x10^3/uL (0.2-0.8); MONOCYTES % (AUTO) 6 % (2-9); NEUTROPHILS % (AUTO) 76 % (42-75)
[2018-07-26] MEDS: PANTOPROZOLE 40MG TABLET PO SCH ×2 (06:20→16:54)
[2018-07-26] MEDS: GUAIFENESIN 200 MG TABLET PO SCH ×4 (06:20→21:19)
[2018-07-26 07:40] VITALS: BP 102/59
[2018-07-26] MEDS: POLYETHYLENE GLYCOL 17 GM PACKET PO SCH (09:00)
[2018-07-26] MEDS: CARVEDILOL 6.25 MG TABLET PO SCH ×2 (09:38→21:19)
[2018-07-26] MEDS: TAMSULOSIN 0.4 MG CAP.ER.24H PO SCH (09:38)
[2018-07-26] MEDS: FINASTERIDE 5 MG TABLET PO SCH (09:39)
[2018-07-26] MEDS: CYANOCOBALAMIN 1,000 MCG TABLET PO SCH (09:39)
[2018-07-26] MEDS: INSULIN LISPRO 100 UNITS/ML, PEN SQ-INSULIN SCH ×4 (09:39→21:00)
[2018-07-26] MEDS: INSULIN GLARGINE 100 UNITS/ML, PEN SQ-INSULIN SCH ×2 (09:41→21:21)
[2018-07-26] MEDS: SODIUM CHLORIDE FLUSH 10ML SYR IVF SCH ×2 (09:42→21:20)
[2018-07-26] MEDS: FERROUS SULFATE 220 MG/5 ML ORAL SOL PO SCH (12:40)
[2018-07-26 12:44] VITALS: BP 104/61
[2018-07-26 14:02] LABS: BASOPHILS # (AUTO) 0.02 x10^3/uL (0-0.1); BASOPHILS % (AUTO) 0 % (0-1); EOSINOPHILS # (AUTO) 0.35 x10^3/uL (0-0.4); EOSINOPHILS % (AUTO) 5 % (1-7); LYMPHOCYTES % (AUTO) 10 % (22-44); MD NO; MEAN CORPUSCULAR HEMOGLOBIN 27.7 pg (27.5-34.5); MEAN CORPUSCULAR HGB CONC 31.9 g/dL (33.2-36.2); MEAN CORPUSCULAR VOLUME 86.9 fL (81-97); MEAN PLATELET VOLUME 9.5 fL (7.4-10.4); MONOCYTES # (AUTO) 0.35 x10^3/uL (0.2-0.8); MONOCYTES % (AUTO) 5 % (2-9); NEUTROPHILS # (AUTO) 5.43 x10^3/uL (1.8-6.8); NEUTROPHILS % (AUTO) 79 % (42-75); PLATELET COUNT 164 x10^3/uL (130-400); RED BLOOD COUNT 2.72 x10^6/uL (4.38-5.82); RED CELL DISTRIBUTION WIDTH 18.6 % (9.4-14.8)
[2018-07-26 14:09] LABS: ALANINE AMINOTRANSFERASE 120 U/L (12-78); ALBUMIN 3.8 g/dL (3.4-5.0); ANION GAP 8 mmol/L (5-15); CALCIUM 9.1 mg/dL (8.5-10.1); CHLORIDE 101 mmol/L (98-107); CREATININE 2.76 mg/dL (0.7-1.3)
[2018-07-26 14:11] LABS: ALKALINE PHOSPHATASE 240 U/L (45-117); BILIRUBIN,TOTAL 1.5 mg/dL (0.2-1.0); TOTAL PROTEIN 7.2 g/dL (6.4-8.2)
[2018-07-26 18:57] VITALS: BP 111/67
[2018-07-26] MEDS: ATORVASTATIN 40 MG TABLET PO SCH (21:19)
[2018-07-27 02:24] VITALS: BP 95/55
[2018-07-27] MEDS: PANTOPROZOLE 40MG TABLET PO SCH ×2 (07:00→21:12)
[2018-07-27] MEDS: GUAIFENESIN 200 MG TABLET PO SCH ×4 (07:00→21:11)
[2018-07-27] MEDS: INSULIN LISPRO 100 UNITS/ML, PEN SQ-INSULIN SCH ×4 (08:20→21:12)
[2018-07-27 08:26] VITALS: BP 107/59
[2018-07-27] MEDS: POLYETHYLENE GLYCOL 17 GM PACKET PO SCH (09:00)
[2018-07-27] MEDS: TAMSULOSIN 0.4 MG CAP.ER.24H PO SCH (09:00)
[2018-07-27] MEDS: CARVEDILOL 6.25 MG TABLET PO SCH ×2 (09:00→21:11)
[2018-07-27] MEDS: CYANOCOBALAMIN 1,000 MCG TABLET PO SCH (09:00)
[2018-07-27] MEDS: INSULIN GLARGINE 100 UNITS/ML, PEN SQ-INSULIN SCH ×2 (09:00→21:11)
[2018-07-27] MEDS: FINASTERIDE 5 MG TABLET PO SCH (09:00)
[2018-07-27] MEDS ORDERED: LIDOCAINE-MPF 1%, 5ML ONE (09:52)
[2018-07-27] MEDS ORDERED: NALOXONE 1 MG/ML, 2ML ONE (10:26)
[2018-07-27] MEDS ORDERED: MIDAZOLAM 1 MG/ML, 5ML ONE (10:26)
[2018-07-27] MEDS ORDERED: FENTANYL PF 100 MCG/2ML ONE (10:26)
[2018-07-27] MEDS ORDERED: FLUMAZENIL 0.1 MG/1 ML, 5ML ONE (10:26)
[2018-07-27] MEDS ORDERED: CEFAZOLIN PMX 1GM/50ML 50 ML IV ONE (10:30)
[2018-07-27] MEDS: SODIUM CHLORIDE FLUSH 10ML SYR IVF SCH ×2 (11:45→21:12)
[2018-07-27 12:10] VITALS: BP 90/52
[2018-07-27] MEDS: ACETAMINOPHEN 325 MG TABLET PO PRN (16:01)
[2018-07-27] MEDS: ATORVASTATIN 40 MG TABLET PO SCH (21:11)
[2018-07-27 21:13] VITALS: BP 102/62
[2018-07-27] MEDS: TEMAZEPAM 15 MG CAPSULE PO PRN (23:28)
[2018-07-28 02:22] VITALS: BP 93/60
[2018-07-28 05:22] LABS: CHLORIDE 99 mmol/L (98-107)
[2018-07-28 05:23] LABS: BASOPHILS # (AUTO) 0.03 x10^3/uL (0-0.1); BASOPHILS % (AUTO) 1 % (0-1); EOSINOPHILS # (AUTO) 0.61 x10^3/uL (0-0.4); EOSINOPHILS % (AUTO) 8 % (1-7); LYMPHOCYTES # (AUTO) 0.83 x10^3/uL (1-3.4); LYMPHOCYTES % (AUTO) 11 % (22-44); MD NO; MEAN CORPUSCULAR HEMOGLOBIN 29.2 pg (27.5-34.5); MEAN CORPUSCULAR HGB CONC 34.3 g/dL (33.2-36.2); MEAN CORPUSCULAR VOLUME 85.1 fL (81-97); MEAN PLATELET VOLUME 9.5 fL (7.4-10.4); MONOCYTES # (AUTO) 0.53 x10^3/uL (0.2-0.8); MONOCYTES % (AUTO) 7 % (2-9); NEUTROPHILS # (AUTO) 5.29 x10^3/uL (1.8-6.8); NEUTROPHILS % (AUTO) 73 % (42-75); PLATELET COUNT 201 x10^3/uL (130-400); RED BLOOD COUNT 2.76 x10^6/uL (4.38-5.82); RED CELL DISTRIBUTION WIDTH 18.8 % (9.4-14.8)
[2018-07-28 05:29] LABS: ALANINE AMINOTRANSFERASE 94 U/L (12-78); ALBUMIN 3.8 g/dL (3.4-5.0); ALKALINE PHOSPHATASE 230 U/L (45-117); ANION GAP 8 mmol/L (5-15); BILIRUBIN,TOTAL 1.4 mg/dL (0.2-1.0); CALCIUM 9.1 mg/dL (8.5-10.1); CREATININE 2.41 mg/dL (0.7-1.3); TOTAL PROTEIN 7.5 g/dL (6.4-8.2)
[2018-07-28] MEDS: PANTOPROZOLE 40MG TABLET PO SCH ×2 (05:54→16:15)
[2018-07-28] MEDS: GUAIFENESIN 200 MG TABLET PO SCH ×4 (05:54→21:08)
[2018-07-28] MEDS: INSULIN LISPRO 100 UNITS/ML, PEN SQ-INSULIN SCH ×4 (07:00→21:09)
[2018-07-28 08:38] VITALS: BP 100/63
[2018-07-28] MEDS: INSULIN GLARGINE 100 UNITS/ML, PEN SQ-INSULIN SCH ×2 (08:52→21:09)
[2018-07-28] MEDS: FINASTERIDE 5 MG TABLET PO SCH (08:52)
[2018-07-28] MEDS: SODIUM CHLORIDE FLUSH 10ML SYR IVF SCH ×2 (08:52→21:00)
[2018-07-28] MEDS: POLYETHYLENE GLYCOL 17 GM PACKET PO SCH (08:53)
[2018-07-28] MEDS: CYANOCOBALAMIN 1,000 MCG TABLET PO SCH (08:53)
[2018-07-28] MEDS: TAMSULOSIN 0.4 MG CAP.ER.24H PO SCH (08:53)
[2018-07-28] MEDS: CARVEDILOL 6.25 MG TABLET PO SCH ×2 (08:53→21:08)
[2018-07-28] MEDS: FERROUS SULFATE 220 MG/5 ML ORAL SOL PO SCH (11:11)
[2018-07-28 12:49] VITALS: BP 104/59
[2018-07-28 19:20] VITALS: BP 108/64
[2018-07-28] MEDS: ATORVASTATIN 40 MG TABLET PO SCH (21:08)
[2018-07-29 01:54] VITALS: BP 114/67
[2018-07-29] MEDS: TEMAZEPAM 15 MG CAPSULE PO PRN ×2 (02:49→21:59)
[2018-07-29 05:46] LABS: BASOPHILS # (AUTO) 0.02 x10^3/uL (0-0.1); BASOPHILS % (AUTO) 0 % (0-1); EOSINOPHILS # (AUTO) 0.59 x10^3/uL (0-0.4); EOSINOPHILS % (AUTO) 8 % (1-7); LYMPHOCYTES # (AUTO) 0.79 x10^3/uL (1-3.4); LYMPHOCYTES % (AUTO) 11 % (22-44); MD NO; MEAN CORPUSCULAR HEMOGLOBIN 28.4 pg (27.5-34.5); MEAN CORPUSCULAR HGB CONC 33.1 g/dL (33.2-36.2); MEAN CORPUSCULAR VOLUME 85.7 fL (81-97); MEAN PLATELET VOLUME 9.6 fL (7.4-10.4); MONOCYTES # (AUTO) 0.67 x10^3/uL (0.2-0.8); MONOCYTES % (AUTO) 9 % (2-9); NEUTROPHILS # (AUTO) 5.13 x10^3/uL (1.8-6.8); NEUTROPHILS % (AUTO) 71 % (42-75); PLATELET COUNT 219 x10^3/uL (130-400); RED BLOOD COUNT 2.78 x10^6/uL (4.38-5.82); RED CELL DISTRIBUTION WIDTH 18.4 % (9.4-14.8)
[2018-07-29 05:58] LABS: CHLORIDE 100 mmol/L (98-107)
[2018-07-29] MEDS: GUAIFENESIN 200 MG TABLET PO SCH ×4 (06:18→20:28)
[2018-07-29] MEDS: PANTOPROZOLE 40MG TABLET PO SCH ×2 (06:18→15:38)
[2018-07-29 06:37] LABS: ANION GAP 10 mmol/L (5-15); CALCIUM 9.3 mg/dL (8.5-10.1); CREATININE 2.98 mg/dL (0.7-1.3)
[2018-07-29 07:34] VITALS: BP 114/73
[2018-07-29] MEDS: INSULIN LISPRO 100 UNITS/ML, PEN SQ-INSULIN SCH ×4 (08:03→20:32)
[2018-07-29] MEDS: POLYETHYLENE GLYCOL 17 GM PACKET PO SCH (09:24)
[2018-07-29] MEDS: FINASTERIDE 5 MG TABLET PO SCH (09:32)
[2018-07-29] MEDS: CARVEDILOL 6.25 MG TABLET PO SCH ×2 (09:32→20:29)
[2018-07-29] MEDS: TAMSULOSIN 0.4 MG CAP.ER.24H PO SCH (09:32)
[2018-07-29] MEDS: CYANOCOBALAMIN 1,000 MCG TABLET PO SCH (09:32)
[2018-07-29] MEDS: INSULIN GLARGINE 100 UNITS/ML, PEN SQ-INSULIN SCH ×2 (09:38→20:32)
[2018-07-29] MEDS: SODIUM CHLORIDE FLUSH 10ML SYR IVF SCH ×2 (09:39→20:32)
[2018-07-29 12:28] VITALS: BP 106/65
[2018-07-29] MEDS ORDERED: SILDENAFIL 20 MG TABLET ONE (13:30)
[2018-07-29 18:59] VITALS: BP 107/65
[2018-07-29 20:00] VITALS: BP 124/69
[2018-07-29] MEDS: ATORVASTATIN 40 MG TABLET PO SCH (20:28)
[2018-07-29 23:46] LABS: CLOSTRIDIUM DIFFICILE ANTIGEN POSITIVE; CLOSTRIDIUM DIFFICILE TOXIN NEGATIVE (Negative)
[2018-07-30 03:14] VITALS: BP 117/66
[2018-07-30] MEDS: GUAIFENESIN 200 MG TABLET PO SCH ×4 (04:59→22:49)
[2018-07-30] MEDS: PANTOPROZOLE 40MG TABLET PO SCH ×2 (05:01→17:05)
[2018-07-30 06:26] LABS: BASOPHILS # (AUTO) 0.02 x10^3/uL (0-0.1); BASOPHILS % (AUTO) 0 % (0-1); EOSINOPHILS # (AUTO) 0.43 x10^3/uL (0-0.4); EOSINOPHILS % (AUTO) 6 % (1-7); LYMPHOCYTES # (AUTO) 0.88 x10^3/uL (1-3.4); LYMPHOCYTES % (AUTO) 12 % (22-44); MD NO; MEAN CORPUSCULAR HEMOGLOBIN 28.2 pg (27.5-34.5); MEAN CORPUSCULAR HGB CONC 33.1 g/dL (33.2-36.2); MEAN PLATELET VOLUME 9.2 fL (7.4-10.4); MONOCYTES # (AUTO) 0.74 x10^3/uL (0.2-0.8); MONOCYTES % (AUTO) 10 % (2-9); NEUTROPHILS % (AUTO) 72 % (42-75); PLATELET COUNT 263 x10^3/uL (130-400); RED BLOOD COUNT 2.88 x10^6/uL (4.38-5.82)
[2018-07-30 06:34] LABS: ANION GAP 10 mmol/L (5-15); CALCIUM 9.8 mg/dL (8.5-10.1); CHLORIDE 102 mmol/L (98-107)
[2018-07-30 06:35] VITALS: BP 114/64
[2018-07-30 06:50] LABS: CREATININE 2.88 mg/dL (0.7-1.3)
[2018-07-30] MEDS: INSULIN LISPRO 100 UNITS/ML, PEN SQ-INSULIN SCH ×4 (07:33→21:27)
[2018-07-30] MEDS: FINASTERIDE 5 MG TABLET PO SCH (09:38)
[2018-07-30] MEDS: TAMSULOSIN 0.4 MG CAP.ER.24H PO SCH (09:38)
[2018-07-30] MEDS: CARVEDILOL 6.25 MG TABLET PO SCH ×2 (09:39→21:27)
[2018-07-30] MEDS: SODIUM CHLORIDE FLUSH 10ML SYR IVF SCH ×2 (09:39→22:49)
[2018-07-30] MEDS: CYANOCOBALAMIN 1,000 MCG TABLET PO SCH (09:39)
[2018-07-30] MEDS: POLYETHYLENE GLYCOL 17 GM PACKET PO SCH (09:39)
[2018-07-30] MEDS: INSULIN GLARGINE 100 UNITS/ML, PEN SQ-INSULIN SCH ×2 (09:40→22:50)
[2018-07-30 12:12] VITALS: BP 100/58
[2018-07-30] MEDS: FERROUS SULFATE 220 MG/5 ML ORAL SOL PO SCH (14:43)
[2018-07-30] MEDS: ERGOCALCIFEROL 50,000 UNIT CAPSULE PO SCH (17:05)
[2018-07-30 22:34] VITALS: BP 101/66
[2018-07-30] MEDS: ATORVASTATIN 40 MG TABLET PO SCH (22:49)
[2018-07-30] MEDS: TEMAZEPAM 15 MG CAPSULE PO PRN (23:23)
[2018-07-31 01:48] VITALS: BP 100/64
[2018-07-31] MEDS: GUAIFENESIN 200 MG TABLET PO SCH ×4 (05:40→22:43)
[2018-07-31] MEDS: PANTOPROZOLE 40MG TABLET PO SCH ×2 (05:40→17:10)
[2018-07-31 06:12] LABS: ALANINE AMINOTRANSFERASE 64 U/L (12-78); ALBUMIN 3.9 g/dL (3.4-5.0); ANION GAP 8 mmol/L (5-15); CALCIUM 9.6 mg/dL (8.5-10.1); CHLORIDE 101 mmol/L (98-107); CREATININE 2.55 mg/dL (0.7-1.3)
[2018-07-31 06:15] LABS: ALKALINE PHOSPHATASE 225 U/L (45-117); BILIRUBIN,TOTAL 1.5 mg/dL (0.2-1.0); TOTAL PROTEIN 8.3 g/dL (6.4-8.2)
[2018-07-31 06:26] LABS: MEAN CORPUSCULAR HEMOGLOBIN 28.3 pg (27.5-34.5); MEAN CORPUSCULAR HGB CONC 32.9 g/dL (33.2-36.2); MEAN CORPUSCULAR VOLUME 86.1 fL (81-97); PLATELET COUNT 280 x10^3/uL (130-400); RED BLOOD COUNT 2.86 x10^6/uL (4.38-5.82); RED CELL DISTRIBUTION WIDTH 18.7 % (9.4-14.8)
[2018-07-31 06:35] VITALS: BP 96/57
[2018-07-31 07:06] LABS: BASOPHILS # (AUTO) 0.03 x10^3/uL (0-0.1); BASOPHILS % (AUTO) 1 % (0-1); EOSINOPHILS # (AUTO) 0.32 x10^3/uL (0-0.4); EOSINOPHILS % (AUTO) 4 % (1-7); LYMPHOCYTES # (AUTO) 0.95 x10^3/uL (1-3.4); LYMPHOCYTES % (AUTO) 13 % (22-44); MD MORPH REVIEW ONLY; MONOCYTES # (AUTO) 0.93 x10^3/uL (0.2-0.8); MONOCYTES % (AUTO) 13 % (2-9); NEUTROPHILS # (AUTO) 5.15 x10^3/uL (1.8-6.8); NEUTROPHILS % (AUTO) 70 % (42-75)
[2018-07-31] MEDS: INSULIN LISPRO 100 UNITS/ML, PEN SQ-INSULIN SCH ×4 (07:09→22:45)
[2018-07-31 07:18] LABS: ACANTHOCYTES 1+; ANISOCYTOSIS 1+; SCHISTOCYTES 1+
[2018-07-31 07:19] LABS: OVALOCYTES 1+
[2018-07-31 07:20] LABS: <PLATELET ESTIMATE> ADEQUATE; <PLT MORPHOLOGY> NORMAL PLT MORPH
[2018-07-31] MEDS: POLYETHYLENE GLYCOL 17 GM PACKET PO SCH (09:01)
[2018-07-31] MEDS: TAMSULOSIN 0.4 MG CAP.ER.24H PO SCH (09:01)
[2018-07-31] MEDS: FINASTERIDE 5 MG TABLET PO SCH (09:01)
[2018-07-31] MEDS: CYANOCOBALAMIN 1,000 MCG TABLET PO SCH (09:01)
[2018-07-31] MEDS: CARVEDILOL 6.25 MG TABLET PO SCH ×2 (09:01→22:48)
[2018-07-31] MEDS: SODIUM CHLORIDE FLUSH 10ML SYR IVF SCH ×2 (09:02→22:45)
[2018-07-31] MEDS: INSULIN GLARGINE 100 UNITS/ML, PEN SQ-INSULIN SCH ×2 (09:02→22:44)
[2018-07-31 12:01] VITALS: BP 97/58
[2018-07-31] MEDS ORDERED: DIPHENHYDRAMINE 25 MG CAPSULE PO PRN (19:30)
[2018-07-31 20:29] VITALS: BP 98/54
[2018-07-31] MEDS: ATORVASTATIN 40 MG TABLET PO SCH (22:43)
[2018-08-01] MEDS: TEMAZEPAM 15 MG CAPSULE PO PRN ×2 (00:54→23:59)
[2018-08-01 01:20] VITALS: BP 97/57
[2018-08-01] MEDS: GUAIFENESIN 200 MG TABLET PO SCH ×4 (05:26→22:43)
[2018-08-01] MEDS: PANTOPROZOLE 40MG TABLET PO SCH ×2 (05:26→16:11)
[2018-08-01 05:52] LABS: BASOPHILS # (AUTO) 0.04 x10^3/uL (0-0.1); BASOPHILS % (AUTO) 1 % (0-1); EOSINOPHILS # (AUTO) 0.37 x10^3/uL (0-0.4); EOSINOPHILS % (AUTO) 5 % (1-7); LYMPHOCYTES # (AUTO) 1.24 x10^3/uL (1-3.4); LYMPHOCYTES % (AUTO) 17 % (22-44); MD NO; MEAN CORPUSCULAR HEMOGLOBIN 28.5 pg (27.5-34.5); MEAN CORPUSCULAR HGB CONC 33.2 g/dL (33.2-36.2); MEAN CORPUSCULAR VOLUME 85.8 fL (81-97); MEAN PLATELET VOLUME 8.6 fL (7.4-10.4); MONOCYTES # (AUTO) 0.96 x10^3/uL (0.2-0.8); MONOCYTES % (AUTO) 13 % (2-9); NEUTROPHILS % (AUTO) 64 % (42-75); PLATELET COUNT 256 x10^3/uL (130-400); RED BLOOD COUNT 2.68 x10^6/uL (4.38-5.82); RED CELL DISTRIBUTION WIDTH 19.4 % (9.4-14.8)
[2018-08-01 06:10] LABS: CHLORIDE 99 mmol/L (98-107)
[2018-08-01 06:15] LABS: ANION GAP 9 mmol/L (5-15); CALCIUM 9.7 mg/dL (8.5-10.1); CREATININE 3.21 mg/dL (0.7-1.3)
[2018-08-01 06:37] VITALS: BP 95/60
[2018-08-01] MEDS: INSULIN LISPRO 100 UNITS/ML, PEN SQ-INSULIN SCH ×4 (07:00→21:00)
[2018-08-01] MEDS: POLYETHYLENE GLYCOL 17 GM PACKET PO SCH (08:59)
[2018-08-01] MEDS: SODIUM CHLORIDE FLUSH 10ML SYR IVF SCH ×2 (09:00→22:46)
[2018-08-01] MEDS: CYANOCOBALAMIN 1,000 MCG TABLET PO SCH (09:05)
[2018-08-01] MEDS: CARVEDILOL 6.25 MG TABLET PO SCH ×2 (09:05→21:00)
[2018-08-01] MEDS: FINASTERIDE 5 MG TABLET PO SCH (09:05)
[2018-08-01] MEDS: INSULIN GLARGINE 100 UNITS/ML, PEN SQ-INSULIN SCH ×2 (09:06→22:45)
[2018-08-01] MEDS: TAMSULOSIN 0.4 MG CAP.ER.24H PO SCH (09:06)
[2018-08-01] MEDS: FERROUS SULFATE 220 MG/5 ML ORAL SOL PO SCH (11:31)
[2018-08-01 12:13] VITALS: BP 93/52
[2018-08-01 19:44] VITALS: BP 96/60
[2018-08-01] MEDS: ATORVASTATIN 40 MG TABLET PO SCH (22:43)
[2018-08-02] VITALS (7 sets, daily range): BP systolic 72–152; BP diastolic 43–74
[2018-08-02] MEDS ORDERED: SODIUM CHLORIDE 0.9%, 250ML IVBOLUS ONE (00:30)
[2018-08-02] MEDS: PANTOPROZOLE 40MG TABLET PO SCH ×2 (05:21→16:23)
[2018-08-02] MEDS: GUAIFENESIN 200 MG TABLET PO SCH ×4 (05:21→22:07)
[2018-08-02 05:54] LABS: BASOPHILS # (AUTO) 0.04 x10^3/uL (0-0.1); BASOPHILS % (AUTO) 0 % (0-1); EOSINOPHILS # (AUTO) 0.44 x10^3/uL (0-0.4); EOSINOPHILS % (AUTO) 4 % (1-7); LYMPHOCYTES # (AUTO) 0.93 x10^3/uL (1-3.4); LYMPHOCYTES % (AUTO) 9 % (22-44); MD NO; MEAN CORPUSCULAR HEMOGLOBIN 28.5 pg (27.5-34.5); MEAN CORPUSCULAR HGB CONC 33.3 g/dL (33.2-36.2); MEAN CORPUSCULAR VOLUME 85.7 fL (81-97); MEAN PLATELET VOLUME 8.2 fL (7.4-10.4); MONOCYTES # (AUTO) 0.89 x10^3/uL (0.2-0.8); MONOCYTES % (AUTO) 9 % (2-9); NEUTROPHILS # (AUTO) 7.83 x10^3/uL (1.8-6.8); NEUTROPHILS % (AUTO) 77 % (42-75); PLATELET COUNT 271 x10^3/uL (130-400); RED BLOOD COUNT 2.86 x10^6/uL (4.38-5.82); RED CELL DISTRIBUTION WIDTH 19.2 % (9.4-14.8)
[2018-08-02 06:19] LABS: CHLORIDE 98 mmol/L (98-107)
[2018-08-02 06:55] LABS: ALANINE AMINOTRANSFERASE 238 U/L (12-78); ALBUMIN 3.4 g/dL (3.4-5.0); ALKALINE PHOSPHATASE 280 U/L (45-117); ANION GAP 10 mmol/L (5-15); BILIRUBIN,TOTAL 1.5 mg/dL (0.2-1.0); CALCIUM 9.4 mg/dL (8.5-10.1); CREATININE 2.52 mg/dL (0.7-1.3); TOTAL PROTEIN 7.7 g/dL (6.4-8.2)
[2018-08-02] MEDS: INSULIN LISPRO 100 UNITS/ML, PEN SQ-INSULIN SCH ×4 (07:00→22:08)
[2018-08-02] MEDS: POLYETHYLENE GLYCOL 17 GM PACKET PO SCH (07:44)
[2018-08-02] MEDS: CARVEDILOL 6.25 MG TABLET PO SCH ×2 (07:48→22:14)
[2018-08-02] MEDS: INSULIN GLARGINE 100 UNITS/ML, PEN SQ-INSULIN SCH ×2 (07:48→22:08)
[2018-08-02] MEDS: SODIUM CHLORIDE FLUSH 10ML SYR IVF SCH ×2 (07:55→22:09)
[2018-08-02] MEDS: FINASTERIDE 5 MG TABLET PO SCH (07:55)
[2018-08-02] MEDS: TAMSULOSIN 0.4 MG CAP.ER.24H PO SCH (07:55)
[2018-08-02] MEDS: CYANOCOBALAMIN 1,000 MCG TABLET PO SCH (07:56)
[2018-08-02] MEDS: DRONABINOL 2.5 MG CAPSULE PO SCH (22:07)
[2018-08-02] MEDS: ATORVASTATIN 40 MG TABLET PO SCH (22:07)
[2018-08-03 00:03] VITALS: BP 102/65
[2018-08-03] MEDS: TEMAZEPAM 15 MG CAPSULE PO PRN ×2 (00:07→23:52)
[2018-08-03] MEDS: PANTOPROZOLE 40MG TABLET PO SCH ×2 (05:50→16:37)
[2018-08-03] MEDS: GUAIFENESIN 200 MG TABLET PO SCH ×4 (05:50→21:25)
[2018-08-03 06:10] LABS: BASOPHILS # (AUTO) 0.04 x10^3/uL (0-0.1); BASOPHILS % (AUTO) 1 % (0-1); EOSINOPHILS # (AUTO) 0.24 x10^3/uL (0-0.4); EOSINOPHILS % (AUTO) 3 % (1-7); LYMPHOCYTES # (AUTO) 1.14 x10^3/uL (1-3.4); LYMPHOCYTES % (AUTO) 13 % (22-44); MD NO; MEAN CORPUSCULAR HEMOGLOBIN 28.2 pg (27.5-34.5); MEAN CORPUSCULAR HGB CONC 33.1 g/dL (33.2-36.2); MEAN CORPUSCULAR VOLUME 85.1 fL (81-97); MEAN PLATELET VOLUME 8.5 fL (7.4-10.4); MONOCYTES % (AUTO) 9 % (2-9); NEUTROPHILS % (AUTO) 75 % (42-75); PLATELET COUNT 262 x10^3/uL (130-400); RED BLOOD COUNT 2.74 x10^6/uL (4.38-5.82); RED CELL DISTRIBUTION WIDTH 19.1 % (9.4-14.8)
[2018-08-03 06:23] LABS: ANION GAP 9 mmol/L (5-15); CALCIUM 9.2 mg/dL (8.5-10.1); CHLORIDE 98 mmol/L (98-107)
[2018-08-03] MEDS: INSULIN LISPRO 100 UNITS/ML, PEN SQ-INSULIN SCH ×4 (07:00→21:25)
[2018-08-03 07:24] VITALS: BP 109/68
[2018-08-03] MEDS: POLYETHYLENE GLYCOL 17 GM PACKET PO SCH (09:00)
[2018-08-03] MEDS: DRONABINOL 2.5 MG CAPSULE PO SCH ×2 (09:37→21:25)
[2018-08-03] MEDS: FINASTERIDE 5 MG TABLET PO SCH (09:37)
[2018-08-03] MEDS: CYANOCOBALAMIN 1,000 MCG TABLET PO SCH (09:37)
[2018-08-03] MEDS: CARVEDILOL 6.25 MG TABLET PO SCH ×2 (09:37→21:26)
[2018-08-03] MEDS: TAMSULOSIN 0.4 MG CAP.ER.24H PO SCH (09:37)
[2018-08-03] MEDS: SODIUM CHLORIDE FLUSH 10ML SYR IVF SCH ×2 (09:38→21:26)
[2018-08-03] MEDS: INSULIN GLARGINE 100 UNITS/ML, PEN SQ-INSULIN SCH ×2 (09:38→21:24)
[2018-08-03] MEDS: FERROUS SULFATE 220 MG/5 ML ORAL SOL PO SCH (11:41)
[2018-08-03 13:42] VITALS: BP 102/73
[2018-08-03] MEDS: LACTOBACILLUS 1GM/ PACKET PO SCH ×2 (16:37→21:25)
[2018-08-03 20:25] VITALS: BP 106/68
[2018-08-03] MEDS: ATORVASTATIN 40 MG TABLET PO SCH (21:25)
[2018-08-04 00:59] VITALS: BP 97/62
[2018-08-04 04:08] LABS: ANION GAP 10 mmol/L (5-15); CALCIUM 9.4 mg/dL (8.5-10.1); CHLORIDE 98 mmol/L (98-107); CREATININE 2.38 mg/dL (0.7-1.3)
[2018-08-04] MEDS: GUAIFENESIN 200 MG TABLET PO SCH ×4 (05:52→20:51)
[2018-08-04] MEDS: PANTOPROZOLE 40MG TABLET PO SCH ×2 (05:52→16:31)
[2018-08-04] MEDS: INSULIN LISPRO 100 UNITS/ML, PEN SQ-INSULIN SCH ×4 (07:00→21:09)
[2018-08-04 07:04] VITALS: BP 94/59
[2018-08-04] MEDS: POLYETHYLENE GLYCOL 17 GM PACKET PO SCH (09:00)
[2018-08-04] MEDS: TAMSULOSIN 0.4 MG CAP.ER.24H PO SCH (09:00)
[2018-08-04] MEDS: LACTOBACILLUS 1GM/ PACKET PO SCH ×3 (09:00→20:51)
[2018-08-04] MEDS: CYANOCOBALAMIN 1,000 MCG TABLET PO SCH (09:00)
[2018-08-04] MEDS: FINASTERIDE 5 MG TABLET PO SCH (09:00)
[2018-08-04] MEDS: CARVEDILOL 6.25 MG TABLET PO SCH ×2 (09:01→20:51)
[2018-08-04] MEDS: DRONABINOL 2.5 MG CAPSULE PO SCH ×2 (09:01→20:51)
[2018-08-04] MEDS: SODIUM CHLORIDE FLUSH 10ML SYR IVF SCH ×2 (09:04→20:52)
[2018-08-04] MEDS: INSULIN GLARGINE 100 UNITS/ML, PEN SQ-INSULIN SCH ×2 (09:11→21:09)
[2018-08-04 13:28] VITALS: BP 95/58
[2018-08-04] MEDS ORDERED: ARANESP 100 MCG/ML **ESRD SQ SCH (13:30)
[2018-08-04 20:24] VITALS: BP 107/69
[2018-08-04] MEDS: ATORVASTATIN 40 MG TABLET PO SCH (20:51)
[2018-08-04] MEDS: TEMAZEPAM 15 MG CAPSULE PO PRN (23:43)
[2018-08-05 02:52] VITALS: BP 95/60
[2018-08-05 05:26] LABS: MEAN CORPUSCULAR HEMOGLOBIN 28.1 pg (27.5-34.5); MEAN CORPUSCULAR HGB CONC 32.7 g/dL (33.2-36.2); MEAN CORPUSCULAR VOLUME 86.1 fL (81-97); MEAN PLATELET VOLUME 8.3 fL (7.4-10.4); PLATELET COUNT 236 x10^3/uL (130-400); RED BLOOD COUNT 2.65 x10^6/uL (4.38-5.82); RED CELL DISTRIBUTION WIDTH 19.3 % (9.4-14.8)
[2018-08-05 05:30] LABS: ALBUMIN 3.1 g/dL (3.4-5.0); ANION GAP 6 mmol/L (5-15); CALCIUM 9.1 mg/dL (8.5-10.1); CHLORIDE 100 mmol/L (98-107); CREATININE 3.13 mg/dL (0.7-1.3)
[2018-08-05] MEDS: PANTOPROZOLE 40MG TABLET PO SCH ×2 (05:47→16:52)
[2018-08-05] MEDS: GUAIFENESIN 200 MG TABLET PO SCH ×4 (05:47→21:06)
[2018-08-05 06:48] LABS: BASOPHILS # (AUTO) 0.03 x10^3/uL (0-0.1); BASOPHILS % (AUTO) 0 % (0-1); EOSINOPHILS # (AUTO) 0.21 x10^3/uL (0-0.4); EOSINOPHILS % (AUTO) 2 % (1-7); LYMPHOCYTES # (AUTO) 1.17 x10^3/uL (1-3.4); LYMPHOCYTES % (AUTO) 10 % (22-44); MD SCAN; MONOCYTES % (AUTO) 8 % (2-9); NEUTROPHILS # (AUTO) 9.17 x10^3/uL (1.8-6.8); NEUTROPHILS % (AUTO) 80 % (42-75)
[2018-08-05] MEDS: INSULIN LISPRO 100 UNITS/ML, PEN SQ-INSULIN SCH ×4 (07:00→21:13)
[2018-08-05 07:57] VITALS: BP 97/61
[2018-08-05] MEDS: POLYETHYLENE GLYCOL 17 GM PACKET PO SCH (09:00)
[2018-08-05] MEDS: LACTOBACILLUS 1GM/ PACKET PO SCH ×3 (09:42→21:06)
[2018-08-05] MEDS: CYANOCOBALAMIN 1,000 MCG TABLET PO SCH (09:42)
[2018-08-05] MEDS: DRONABINOL 2.5 MG CAPSULE PO SCH ×2 (09:42→21:06)
[2018-08-05] MEDS: TAMSULOSIN 0.4 MG CAP.ER.24H PO SCH (09:43)
[2018-08-05] MEDS: CARVEDILOL 6.25 MG TABLET PO SCH ×3 (09:43→21:06)
[2018-08-05] MEDS: SODIUM CHLORIDE FLUSH 10ML SYR IVF SCH ×2 (09:43→21:07)
[2018-08-05] MEDS: FINASTERIDE 5 MG TABLET PO SCH (09:43)
[2018-08-05] MEDS: INSULIN GLARGINE 100 UNITS/ML, PEN SQ-INSULIN SCH ×2 (09:50→21:12)
[2018-08-05] MEDS: FERROUS SULFATE 220 MG/5 ML ORAL SOL PO SCH (12:39)
[2018-08-05 14:00] VITALS: BP 137/73
[2018-08-05] MEDS: ACETAMINOPHEN 325 MG TABLET PO PRN (16:52)
[2018-08-05 19:56] VITALS: BP 99/54
[2018-08-05] MEDS: ATORVASTATIN 40 MG TABLET PO SCH (21:06)
[2018-08-05 21:07] VITALS: BP 98/58
[2018-08-05] MEDS: TEMAZEPAM 15 MG CAPSULE PO PRN (23:52)
[2018-08-06 00:27] VITALS: BP 103/63
[2018-08-06 01:02] LABS: MICROSCOPIC INDICATED
[2018-08-06] MEDS: GUAIFENESIN 200 MG TABLET PO SCH ×4 (05:28→21:01)
[2018-08-06] MEDS: DOCUSATE 100 MG CAPSULE PO PRN (05:29)
[2018-08-06] MEDS: PANTOPROZOLE 40MG TABLET PO SCH ×2 (05:29→15:57)
[2018-08-06 05:56] LABS: CHLORIDE 98 mmol/L (98-107)
[2018-08-06 06:02] LABS: ALBUMIN 3.2 g/dL (3.4-5.0); ANION GAP 11 mmol/L (5-15); CALCIUM 9.6 mg/dL (8.5-10.1); CREATININE 3.15 mg/dL (0.7-1.3)
[2018-08-06 06:15] LABS: MEAN CORPUSCULAR HEMOGLOBIN 27.8 pg (27.5-34.5); MEAN CORPUSCULAR HGB CONC 32.3 g/dL (33.2-36.2); MEAN CORPUSCULAR VOLUME 85.8 fL (81-97); MEAN PLATELET VOLUME 8.4 fL (7.4-10.4); PLATELET COUNT 226 x10^3/uL (130-400); RED BLOOD COUNT 2.66 x10^6/uL (4.38-5.82)
[2018-08-06 06:38] LABS: BASOPHILS # (AUTO) 0.04 x10^3/uL (0-0.1); BASOPHILS % (AUTO) 0 % (0-1); EOSINOPHILS # (AUTO) 0.15 x10^3/uL (0-0.4); EOSINOPHILS % (AUTO) 1 % (1-7); LYMPHOCYTES # (AUTO) 1.53 x10^3/uL (1-3.4); LYMPHOCYTES % (AUTO) 13 % (22-44); MD MORPH REVIEW ONLY; MONOCYTES % (AUTO) 7 % (2-9); NEUTROPHILS # (AUTO) 9.49 x10^3/uL (1.8-6.8); NEUTROPHILS % (AUTO) 79 % (42-75)
[2018-08-06 06:39] LABS: ACANTHOCYTES 1+; ANISOCYTOSIS 1+; OVALOCYTES 1+
[2018-08-06 06:41] LABS: <PLATELET ESTIMATE> ADEQUATE; <PLT MORPHOLOGY> NORMAL PLT MORPH; SCHISTOCYTES 1+
[2018-08-06] MEDS: INSULIN LISPRO 100 UNITS/ML, PEN SQ-INSULIN SCH ×4 (07:00→21:00)
[2018-08-06 07:10] VITALS: BP 101/65
[2018-08-06] MEDS: POLYETHYLENE GLYCOL 17 GM PACKET PO SCH (09:00)
[2018-08-06] MEDS: TAMSULOSIN 0.4 MG CAP.ER.24H PO SCH (09:12)
[2018-08-06] MEDS: SODIUM CHLORIDE FLUSH 10ML SYR IVF SCH ×2 (09:12→23:13)
[2018-08-06] MEDS: CYANOCOBALAMIN 1,000 MCG TABLET PO SCH (09:12)
[2018-08-06] MEDS: DRONABINOL 2.5 MG CAPSULE PO SCH ×2 (09:12→21:01)
[2018-08-06] MEDS: LACTOBACILLUS 1GM/ PACKET PO SCH ×3 (09:12→21:02)
[2018-08-06] MEDS: CARVEDILOL 6.25 MG TABLET PO SCH ×2 (09:12→21:00)
[2018-08-06] MEDS: FINASTERIDE 5 MG TABLET PO SCH (09:12)
[2018-08-06] MEDS: INSULIN GLARGINE 100 UNITS/ML, PEN SQ-INSULIN SCH ×2 (09:13→21:04)
[2018-08-06 12:44] VITALS: BP 100/64
[2018-08-06] MEDS: ERGOCALCIFEROL 50,000 UNIT CAPSULE PO SCH (15:57)
[2018-08-06] MEDS: ATORVASTATIN 40 MG TABLET PO SCH (21:02)
[2018-08-06 21:20] VITALS: BP 99/64
[2018-08-07] MEDS: TEMAZEPAM 15 MG CAPSULE PO PRN (00:53)
[2018-08-07 03:53] VITALS: BP 90/42
[2018-08-07] MEDS: PANTOPROZOLE 40MG TABLET PO SCH ×2 (05:21→15:09)
[2018-08-07] MEDS: GUAIFENESIN 200 MG TABLET PO SCH ×4 (05:21→21:41)
[2018-08-07 06:10] LABS: BASOPHILS # (AUTO) 0.06 x10^3/uL (0-0.1); BASOPHILS % (AUTO) 1 % (0-1); EOSINOPHILS # (AUTO) 0.18 x10^3/uL (0-0.4); EOSINOPHILS % (AUTO) 1 % (1-7); LYMPHOCYTES # (AUTO) 1.38 x10^3/uL (1-3.4); LYMPHOCYTES % (AUTO) 11 % (22-44); MD NO; MEAN CORPUSCULAR HEMOGLOBIN 28.7 pg (27.5-34.5); MEAN CORPUSCULAR HGB CONC 33.6 g/dL (33.2-36.2); MEAN CORPUSCULAR VOLUME 85.2 fL (81-97); MEAN PLATELET VOLUME 7.7 fL (7.4-10.4); MONOCYTES # (AUTO) 0.71 x10^3/uL (0.2-0.8); MONOCYTES % (AUTO) 6 % (2-9); NEUTROPHILS % (AUTO) 82 % (42-75); PLATELET COUNT 218 x10^3/uL (130-400); RED BLOOD COUNT 2.85 x10^6/uL (4.38-5.82); RED CELL DISTRIBUTION WIDTH 18.4 % (9.4-14.8)
[2018-08-07 06:22] LABS: ANION GAP 6 mmol/L (5-15); CALCIUM 9.3 mg/dL (8.5-10.1); CHLORIDE 98 mmol/L (98-107)
[2018-08-07 06:24] LABS: CREATININE 2.07 mg/dL (0.7-1.3)
[2018-08-07 06:46] VITALS: BP 100/65
[2018-08-07] MEDS: INSULIN LISPRO 100 UNITS/ML, PEN SQ-INSULIN SCH ×4 (07:00→21:42)
[2018-08-07] MEDS: DRONABINOL 2.5 MG CAPSULE PO SCH ×3 (08:30→21:49)
[2018-08-07] MEDS: SODIUM CHLORIDE FLUSH 10ML SYR IVF SCH ×2 (08:30→21:50)
[2018-08-07] MEDS: INSULIN GLARGINE 100 UNITS/ML, PEN SQ-INSULIN SCH ×2 (08:30→21:42)
[2018-08-07] MEDS: LACTOBACILLUS 1GM/ PACKET PO SCH ×3 (08:30→21:49)
[2018-08-07] MEDS: FINASTERIDE 5 MG TABLET PO SCH (08:31)
[2018-08-07] MEDS: CARVEDILOL 6.25 MG TABLET PO SCH ×2 (08:31→21:41)
[2018-08-07] MEDS: TAMSULOSIN 0.4 MG CAP.ER.24H PO SCH (08:32)
[2018-08-07] MEDS: CYANOCOBALAMIN 1,000 MCG TABLET PO SCH (08:32)
[2018-08-07] MEDS: POLYETHYLENE GLYCOL 17 GM PACKET PO SCH (08:32)
[2018-08-07] MEDS: FERROUS SULFATE 220 MG/5 ML ORAL SOL PO SCH (12:12)
[2018-08-07 14:41] VITALS: BP 109/69
[2018-08-07] MEDS: DOCUSATE 100 MG CAPSULE PO PRN (15:08)
[2018-08-07] MEDS ORDERED: PANT40TA5 PO (16:17)
[2018-08-07] MEDS ORDERED: PHEN-583 PO (16:17)
[2018-08-07] MEDS ORDERED: ERGO500017 PO (16:17)
[2018-08-07] MEDS ORDERED: OXYB5TAB7 PO (16:17)
[2018-08-07] MEDS ORDERED: CYAN10005 PO (16:17)
[2018-08-07] MEDS ORDERED: GUAI200T3 PO (16:17)
[2018-08-07] MEDS ORDERED: DOCU-131 PO (16:17)
[2018-08-07] MEDS ORDERED: DARB100V SQ (16:17)
[2018-08-07] MEDS ORDERED: ACID1GRA3 PO (16:17)
[2018-08-07] MEDS ORDERED: DRON2.5C2 PO (16:17)
[2018-08-07] MEDS ORDERED: INSU100I11 SQ-INSULIN (16:17)
[2018-08-07 21:37] VITALS: BP 94/60
[2018-08-07] MEDS: ATORVASTATIN 40 MG TABLET PO SCH (21:39)
[2018-08-08 01:35] VITALS: BP 97/60
[2018-08-08] MEDS: TEMAZEPAM 15 MG CAPSULE PO PRN (01:53)
[2018-08-08] MEDS: PANTOPROZOLE 40MG TABLET PO SCH (06:06)
[2018-08-08] MEDS: GUAIFENESIN 200 MG TABLET PO SCH ×2 (06:06→11:00)
[2018-08-08] MEDS: INSULIN LISPRO 100 UNITS/ML, PEN SQ-INSULIN SCH ×2 (07:00→10:44)
[2018-08-08 08:08] VITALS: BP 102/65
[2018-08-08] MEDS: CARVEDILOL 6.25 MG TABLET PO SCH (09:00)
[2018-08-08] MEDS: SODIUM CHLORIDE FLUSH 10ML SYR IVF SCH (09:00)
[2018-08-08] MEDS: TAMSULOSIN 0.4 MG CAP.ER.24H PO SCH (09:00)
[2018-08-08] MEDS: POLYETHYLENE GLYCOL 17 GM PACKET PO SCH (09:00)
[2018-08-08] MEDS: LACTOBACILLUS 1GM/ PACKET PO SCH (09:00)
[2018-08-08] MEDS: CYANOCOBALAMIN 1,000 MCG TABLET PO SCH (09:00)
[2018-08-08] MEDS: FINASTERIDE 5 MG TABLET PO SCH (09:00)
[2018-08-08] MEDS: INSULIN GLARGINE 100 UNITS/ML, PEN SQ-INSULIN SCH (09:00)
[2018-08-08] MEDS: DRONABINOL 2.5 MG CAPSULE PO SCH (09:00)
[2018-08-08] MEDS ORDERED: MIDODRINE 5 MG TABLET PO PRN (11:30)
== END 2018-08-08 16:03 | DRG 853 ==
LOC: OUT 11:08 → 4NOR 17:31 → OBSVTOIN 20:49 → 4NOR 20:49 → OUT 20:55 → 4NOR 06-30 20:03 → 4EST 07-02 14:46 → 5SO 07-03 05:54 → CSU 07-13 19:28 → 5SO 07-14 16:57 → 4EST 07-16 18:32 → 4WST 08-03 20:01
PROVIDERS: ADMIT Urology; ATTEND Urology
PROC: 0T748DZ Dilation of Left Kidney Pelvis with Intraluminal Device, Via Natural or Artificial Opening Endoscopic (ICD-10-PCS; 2018-06-28)
PROC: BT141ZZ Fluoroscopy of Kidneys, Ureters and Bladder using Low Osmolar Contrast (ICD-10-PCS; 2018-06-28)
PROC: 0TC78ZZ Extirpation of Matter from Left Ureter, Via Natural or Artificial Opening Endoscopic (ICD-10-PCS; principal; 2018-06-28 13:30)
PROC: 5A2204Z Restoration of Cardiac Rhythm, Single (ICD-10-PCS; 2018-07-07)
PROC: 30233N1 Transfusion of Nonautologous Red Blood Cells into Peripheral Vein, Percutaneous Approach (ICD-10-PCS; 2018-07-08)
PROC: 4A023N6 Measurement of Cardiac Sampling and Pressure, Right Heart, Percutaneous Approach (ICD-10-PCS; 2018-07-09)
PROC: B2141ZZ Fluoroscopy of Right Heart using Low Osmolar Contrast (ICD-10-PCS; 2018-07-09)
PROC: B31S1ZZ Fluoroscopy of Right Pulmonary Artery using Low Osmolar Contrast (ICD-10-PCS; 2018-07-09)
PROC: 02HV33Z Insertion of Infusion Device into Superior Vena Cava, Percutaneous Approach (ICD-10-PCS; 2018-07-10)
PROC: B548ZZA Ultrasonography of Superior Vena Cava, Guidance (ICD-10-PCS; 2018-07-10)
PROC: B5181ZA Fluoroscopy of Superior Vena Cava using Low Osmolar Contrast, Guidance (ICD-10-PCS; 2018-07-10)
PROC: 5A1D70Z Performance of Urinary Filtration, Intermittent, Less than 6 Hours Per Day (ICD-10-PCS; 2018-07-10)
PROC: 5A1D70Z Performance of Urinary Filtration, Intermittent, Less than 6 Hours Per Day (ICD-10-PCS; 2018-07-11)
PROC: 5A1D70Z Performance of Urinary Filtration, Intermittent, Less than 6 Hours Per Day (ICD-10-PCS; 2018-07-12)
PROC: 5A1D70Z Performance of Urinary Filtration, Intermittent, Less than 6 Hours Per Day (ICD-10-PCS; 2018-07-13)
PROC: 5A1D70Z Performance of Urinary Filtration, Intermittent, Less than 6 Hours Per Day (ICD-10-PCS; 2018-07-14)
PROC: 5A1D70Z Performance of Urinary Filtration, Intermittent, Less than 6 Hours Per Day (ICD-10-PCS; 2018-07-15)
PROC: 5A1D70Z Performance of Urinary Filtration, Intermittent, Less than 6 Hours Per Day (ICD-10-PCS; 2018-07-17)
PROC: 5A1D70Z Performance of Urinary Filtration, Intermittent, Less than 6 Hours Per Day (ICD-10-PCS; 2018-07-18)
PROC: 5A1D70Z Performance of Urinary Filtration, Intermittent, Less than 6 Hours Per Day (ICD-10-PCS; 2018-07-23)
PROC: 5A1D70Z Performance of Urinary Filtration, Intermittent, Less than 6 Hours Per Day (ICD-10-PCS; 2018-07-25)
PROC: 0JH63XZ Insertion of Tunneled Vascular Access Device into Chest Subcutaneous Tissue and Fascia, Percutaneous Approach (ICD-10-PCS; 2018-07-27)
PROC: 02HV33Z Insertion of Infusion Device into Superior Vena Cava, Percutaneous Approach (ICD-10-PCS; 2018-07-27)
PROC: B5181ZA Fluoroscopy of Superior Vena Cava using Low Osmolar Contrast, Guidance (ICD-10-PCS; 2018-07-27)
PROC: B548ZZA Ultrasonography of Superior Vena Cava, Guidance (ICD-10-PCS; 2018-07-27)
PROC: 5A1D70Z Performance of Urinary Filtration, Intermittent, Less than 6 Hours Per Day (ICD-10-PCS; 2018-07-27)
PROC: 5A1D70Z Performance of Urinary Filtration, Intermittent, Less than 6 Hours Per Day (ICD-10-PCS; 2018-07-30)
PROC: 5A1D70Z Performance of Urinary Filtration, Intermittent, Less than 6 Hours Per Day (ICD-10-PCS; 2018-08-01)
PROC: 5A1D70Z Performance of Urinary Filtration, Intermittent, Less than 6 Hours Per Day (ICD-10-PCS; 2018-08-03)
PROC: 5A1D70Z Performance of Urinary Filtration, Intermittent, Less than 6 Hours Per Day (ICD-10-PCS; 2018-08-06)
PROC: 5A1D70Z Performance of Urinary Filtration, Intermittent, Less than 6 Hours Per Day (ICD-10-PCS; 2018-08-08)
DX: A41.9 Sepsis, unspecified organism (principal); E43 Unspecified severe protein-calorie malnutrition; J96.01 Acute respiratory failure with hypoxia; G93.41 Metabolic encephalopathy; I50.33 Acute on chronic diastolic (congestive) heart failure; N18.6 End stage renal disease; N17.9 Acute kidney failure, unspecified; D62 Acute posthemorrhagic anemia; D68.69 Other thrombophilia; E87.4 Mixed disorder of acid-base balance; I13.2 Hypertensive heart and chronic kidney disease with heart failure and with stage 5 chronic kidney disease, or end stage renal disease; I48.92 Unspecified atrial flutter; J98.11 Atelectasis; N13.6 Pyonephrosis; R18.8 Other ascites; B95.2 Enterococcus as the cause of diseases classified elsewhere; Z68.31 Body mass index [BMI] 31.0-31.9, adult; G89.29 Other chronic pain; I95.9 Hypotension, unspecified; Z86.73 Personal history of transient ischemic attack (TIA), and cerebral infarction without residual deficits; D63.1 Anemia in chronic kidney disease; D69.6 Thrombocytopenia, unspecified; E11.21 Type 2 diabetes mellitus with diabetic nephropathy; E11.22 Type 2 diabetes mellitus with diabetic chronic kidney disease; E11.42 Type 2 diabetes mellitus with diabetic polyneuropathy; E11.65 Type 2 diabetes mellitus with hyperglycemia; E11.69 Type 2 diabetes mellitus with other specified complication; E53.8 Deficiency of other specified B group vitamins; E66.9 Obesity, unspecified; E78.5 Hyperlipidemia, unspecified; E83.42 Hypomagnesemia; E87.5 Hyperkalemia; E87.6 Hypokalemia; G47.33 Obstructive sleep apnea (adult) (pediatric); H81.09 Meniere's disease, unspecified ear; I27.29 Other secondary pulmonary hypertension; I34.0 Nonrheumatic mitral (valve) insufficiency; I44.0 Atrioventricular block, first degree; I48.91 Unspecified atrial fibrillation; I50.82 Biventricular heart failure; J44.9 Chronic obstructive pulmonary disease, unspecified; K57.90 Diverticulosis of intestine, part unspecified, without perforation or abscess without bleeding; N25.0 Renal osteodystrophy; N28.1 Cyst of kidney, acquired; N40.1 Benign prostatic hyperplasia with lower urinary tract symptoms; R31.0 Gross hematuria; R33.8 Other retention of urine; Z96.641 Presence of right artificial hip joint; Z96.651 Presence of right artificial knee joint; Z51.5 Encounter for palliative care; Z66 Do not resuscitate; Z79.01 Long term (current) use of anticoagulants; Z79.4 Long term (current) use of insulin; Z80.0 Family history of malignant neoplasm of digestive organs; Z86.010 Personal history of colon polyps; Z86.711 Personal history of pulmonary embolism; Z87.442 Personal history of urinary calculi; Z87.891 Personal history of nicotine dependence; Z90.49 Acquired absence of other specified parts of digestive tract; Z91.15 Patient's noncompliance with renal dialysis; Z99.2 Dependence on renal dialysis
CPT/HCPCS: 36415; 36556; 36565; 36600; 70450; 71045; 71250; 74176; 74420; 76770; 76937; 77001; 78582; 80048; 80053; 80061; 80069; 81001; 81050; 82040; 82140; 82272; 82274; 82306; 82310; 82360; 82570; 82607; 82728; 82803; 82947; 82962; 83036; 83520; 83540; 83550; 83605; 83735; 83970; 84100; 84145; 84443; 84484; 84550; 85025; 85045; 85379; 85520; 85610; 86256; 86480; 86705; 86706; 86850; 86900; 86923; 87040; 87077; 87081; 87086; 87186; 87324; 87340; 88300; 93005; 93017; 93306; 93451; 94640; 99156; 99157; C1894; G0378; J0295; J0690; J0696; J0744; J0882; J1644; J1756; J1940; J2250; J2405; J2550; J2704; J2710; J3010; J3490; J7613; P9047; Q0167; Q9967; A9540; A9558; C1750; C1751; C1758; C1769; C2617; C9113; CJ; G8978; J0282; J1642; J1815; J2060; J2310; J2930; J3475; J7030; J7050; J7060; P9016; Q0163

== ENCOUNTER 2018-08-17 17:51 | Inpatient (IN) | payer MEDICARE, OTHER ==
[~2018-08-17] VITALS: Ht 177.8 cm; Wt 100.9 kg
[~2018-08-17 17:51] MED LIST changes: +ACID1GRA3 PO; +CYAN10005 PO; +DARB100V SQ; +DOCU-131 PO; +DRON2.5C2 PO; +ERGO500017 PO; +GUAI200T3 PO; +INSU100I11 SQ-INSULIN; +PANT40TA5 PO; +PHEN-583 PO
[2018-08-17] MEDS ORDERED: SODIUM CHLORIDE FLUSH 10ML SYR IVF ONE (18:00)
--- NOTE | 2018-08-17 18:03 | NUR ---
PT KATE FROM [facility], REPORT TAKEN FROM EMS. PT C/O BILATERAL LOWER ABD PAIN X 2 WEEKS, NO BM X 5 DAYS. PT DENIES N/V. PT WAS RECENTLY DC'D FROM THIS HOSPITAL, INITIALLY ADMITTED FOR URETHRAL STENT PLACEMENT AND LITHOTRIPSY, BUT WAS FOUND TO HAVE HEART FAILURE AND RENAL FAILURE REQUIRING DIALYSIS. PT WAS DC'D TO SNF FOR DEBILITY, PT IS BED BOUND AND ARRIVED WITH EDWARDS CATH IN PLACE. PT MEDICATED DATABASE TECHNICIAN WITH [employer], NOW DENIES ANY PAIN. ALL MONITORS IN PLACE, CALL LIGHT IN REACH.
--- NOTE | 2018-08-17 18:11 | NUR ---
SPO2 83% ON ROOM AIR ON ARRIVAL, OXYGEN APPLIED AT 2L/MIN. NO S/SX RESP DISTRESS AT THIS TIME.
[2018-08-17 18:27] LABS: BASOPHILS # (AUTO) 0.05 x10^3/uL (0-0.1); BASOPHILS % (AUTO) 0 % (0-1); EOSINOPHILS # (AUTO) 0.26 x10^3/uL (0-0.4); EOSINOPHILS % (AUTO) 2 % (1-7); LYMPHOCYTES # (AUTO) 0.96 x10^3/uL (1-3.4); LYMPHOCYTES % (AUTO) 8 % (22-44); MD NO; MEAN CORPUSCULAR HEMOGLOBIN 28.5 pg (27.5-34.5); MEAN CORPUSCULAR VOLUME 86.6 fL (81-97); MEAN PLATELET VOLUME 7.6 fL (7.4-10.4); MONOCYTES # (AUTO) 0.72 x10^3/uL (0.2-0.8); MONOCYTES % (AUTO) 6 % (2-9); NEUTROPHILS # (AUTO) 10.69 x10^3/uL (1.8-6.8); NEUTROPHILS % (AUTO) 84 % (42-75); PLATELET COUNT 215 x10^3/uL (130-400); RED BLOOD COUNT 2.82 x10^6/uL (4.38-5.82); RED CELL DISTRIBUTION WIDTH 21.2 % (9.4-14.8)
[2018-08-17] MEDS ORDERED: PLEASE ENTER HEIGHT AND WEIGHT MC SCH (18:30)
[2018-08-17 18:33] LABS: INTERNATIONAL NORMALIZED RATIO 1.07 (0.93-1.1); PROTHROMBIN TIME 11.3 Seconds (9.6-11.5)
[2018-08-17 18:36] LABS: ALANINE AMINOTRANSFERASE 84 U/L (12-78); ALBUMIN 2.6 g/dL (3.4-5.0); ANION GAP 8 mmol/L (5-15); CALCIUM 8.3 mg/dL (8.5-10.1); CHLORIDE 103 mmol/L (98-107); CREATININE 1.73 mg/dL (0.7-1.3)
[2018-08-17 18:38] LABS: ALKALINE PHOSPHATASE 162 U/L (45-117); BILIRUBIN,TOTAL 1.2 mg/dL (0.2-1.0); TOTAL PROTEIN 6.4 g/dL (6.4-8.2)
--- NOTE | 2018-08-17 18:41 | NUR ---
PT WAS INCONTINENT OF BOWEL. PT HAD SMALL SOFT BROWN BM. STORM AND EDWARDS CARE PERFORMED WITH THERAWORX. PT PLACED ON CLEAN LINEN AND CHUX PAD. PT'S EDWARDS CLAMPED TO OBTAIN URINE SAMPLE VIA EDWARDS PER EDOH RAYNE'S ORDER. PT STATES EDWARDS WAS CHANGED 3 DAYS AGO, NO EDWARDS CHANGE INDICATED AT THIS TIME PER EDOH RAYNE. PT PLACED ON WAFFLE MATTRESS. PT ARRIVED WITH PREVALON BOOT IN PLACE X 2. PRESSURE ULCER NOTED ON EACH HEEL. PT HAS BLANCHEABLE REDNESS NOTED TO SACRUM. PT TO CT AT THIS TIME.
--- NOTE | 2018-08-17 18:48 | NUR ---
PT BACK FROM CT
[2018-08-17] MEDS ORDERED: FINA5TAB4 PO (19:03)
[2018-08-17] MEDS ORDERED: DOCU-131 PO (19:03)
[2018-08-17] MEDS ORDERED: TEMA15CA PO (19:03)
[2018-08-17] MEDS ORDERED: INSU100C SQ-INSULIN (19:03)
[2018-08-17] MEDS ORDERED: NITR100C56 PO (19:03)
[2018-08-17] MEDS ORDERED: GUAI400T66 PO (19:03)
--- NOTE | 2018-08-17 19:04 | NUR ---
report to DOREEN Lloyd. pt dozing intermittently on gurney. resps even and unlabored. urine collected and sent to lab. awaiting CT/UA results and dispo.
--- NOTE | 2018-08-17 19:10 | NUR ---
REPORT FROM YAMILE LOGAN. URINE COLLECTED/WALKED TO LAB. CALL FROM FAMILY INQUIRING ON CONDITION, PT VERBALIZES THAT IT IS OKAY TO GIVE OUT INFORMATION VIA PHONE. MONICA BUTCHER UPDATED ON POC, PT CONDITION. PHONE NUMBER [phone]
[2018-08-17 19:20] LABS: CULTURE INDICATED? YES; MICROSCOPIC INDICATED
--- NOTE | 2018-08-17 19:21 | NUR ---
ALL RESULTS BACK, PT FOR RECHECK.
[2018-08-17] MEDS ORDERED: OXYBUTYNIN CHLORIDE 5 MG TABLET PO PRN (20:00)
[2018-08-17] MEDS ORDERED: CEFTAZIDIME PMX 2 GM/50ML 50 ML IV ONE (20:00)
[2018-08-17] MEDS ORDERED: ERGOCALCIFEROL 50,000 UNIT CAPSULE PO SCH (20:00)
--- NOTE | 2018-08-17 20:19 | NUR ---
REPORT TO FLOOR RN. PT TRANSPORTED BY [facility] CALLED AND UPDATED ON ROOM AND PT CONDITION.
[2018-08-17] MEDS ORDERED: CEFTRIAXONE PMX 1GM/50ML 50 ML IV SCH (20:30)
[2018-08-17] MEDS ORDERED: POLYETHYLENE GLYCOL 17 GM PACKET PO PRN (20:30)
[2018-08-17] MEDS ORDERED: MAGNESIUM SULFATE PMX 2GM/50ML 50 ML IV ONE (20:30)
[2018-08-17] MEDS ORDERED: ONDANSETRON 2MG/ML, 2ML IVPush PRN (20:30)
[2018-08-17 20:58] VITALS: BP 97/59
[2018-08-17] MEDS ORDERED: INSULIN LISPRO 100 UNITS/ML, PEN SQ-INSULIN SCH (21:00)
[2018-08-17] MEDS: BISACODYL 10 MG SUPP PR SCH (21:00)
[2018-08-17] MEDS: CARVEDILOL 6.25 MG TABLET PO SCH (21:00)
[2018-08-17] MEDS: GABAPENTIN 300 MG CAPSULE PO SCH (21:04)
[2018-08-17] MEDS: LACTULOSE 20 GM/30 ML UDC PO SCH (21:04)
[2018-08-17] MEDS: HEPARIN 5,000 UNITS/ML, 1ML SQ SCH (21:04)
[2018-08-17] MEDS: LACTOBACILLUS 1GM/ PACKET PO SCH (21:04)
[2018-08-17] MEDS: ATORVASTATIN 40 MG TABLET PO SCH (21:04)
[2018-08-17] MEDS: AMPICILLIN 1 GM in SODIUM CHLORIDE 0.9% 100 ML IV SCH (21:05)
[2018-08-17] MEDS: SODIUM CHLORIDE 0.9% 1,000 ML IV SCH (21:05)
[2018-08-17] MEDS: INSULIN LISPRO 100 UNITS/ML, PEN SQ-INSULIN SCH (22:32)
[2018-08-17] MEDS: INSULIN GLARGINE 100 UNITS/ML, PEN SQ-INSULIN SCH (22:32)
[2018-08-17 23:10] VITALS: BP 103/68
[2018-08-18] VITALS (11 sets, daily range): BP systolic 94–112; BP diastolic 53–67
[2018-08-18] MEDS: TEMAZEPAM 15 MG CAPSULE PO PRN (00:09)
[2018-08-18] MEDS: ACETAMINOPHEN 325 MG TABLET PO PRN ×2 (00:09→23:40)
[2018-08-18] MEDS: AMPICILLIN 1 GM in SODIUM CHLORIDE 0.9% 100 ML IV SCH ×4 (03:03→22:32)
[2018-08-18] MEDS: PANTOPROZOLE 40MG TABLET PO SCH ×2 (05:22→16:57)
[2018-08-18] MEDS: HEPARIN 5,000 UNITS/ML, 1ML SQ SCH ×3 (05:22→22:33)
[2018-08-18 05:25] LABS: MEAN CORPUSCULAR HGB CONC 33.2 g/dL (33.2-36.2); MEAN CORPUSCULAR VOLUME 87.2 fL (81-97); MEAN PLATELET VOLUME 7.7 fL (7.4-10.4); PLATELET COUNT 181 x10^3/uL (130-400); RED BLOOD COUNT 2.38 x10^6/uL (4.38-5.82); RED CELL DISTRIBUTION WIDTH 20.9 % (9.4-14.8)
[2018-08-18 05:27] LABS: ALANINE AMINOTRANSFERASE 70 U/L (12-78); ALBUMIN 2.2 g/dL (3.4-5.0); ANION GAP 6 mmol/L (5-15); CALCIUM 8.7 mg/dL (8.5-10.1); CHLORIDE 105 mmol/L (98-107); CREATININE 1.85 mg/dL (0.7-1.3)
[2018-08-18 05:29] LABS: ALKALINE PHOSPHATASE 143 U/L (45-117); BILIRUBIN,TOTAL 1.1 mg/dL (0.2-1.0); TOTAL PROTEIN 5.8 g/dL (6.4-8.2)
[2018-08-18 05:48] LABS: BASOPHILS # (AUTO) 0.04 x10^3/uL (0-0.1); BASOPHILS % (AUTO) 0 % (0-1); EOSINOPHILS # (AUTO) 0.24 x10^3/uL (0-0.4); EOSINOPHILS % (AUTO) 2 % (1-7); LYMPHOCYTES # (AUTO) 1.07 x10^3/uL (1-3.4); LYMPHOCYTES % (AUTO) 10 % (22-44); MD SCAN; MONOCYTES # (AUTO) 0.61 x10^3/uL (0.2-0.8); MONOCYTES % (AUTO) 6 % (2-9); NEUTROPHILS # (AUTO) 8.87 x10^3/uL (1.8-6.8); NEUTROPHILS % (AUTO) 82 % (42-75)
[2018-08-18] MEDS: INSULIN LISPRO 100 UNITS/ML, PEN SQ-INSULIN SCH ×4 (07:40→22:44)
[2018-08-18] MEDS: ASPIRIN 325 MG TABLET PO SCH (08:30)
[2018-08-18] MEDS: FOSINOPRIL SODIUM PO SCH (08:42)
[2018-08-18] MEDS: SODIUM CHLORIDE 0.9% 1,000 ML IV SCH (08:42)
[2018-08-18] MEDS: LACTOBACILLUS 1GM/ PACKET PO SCH ×3 (08:43→22:32)
[2018-08-18] MEDS: CARVEDILOL 6.25 MG TABLET PO SCH ×2 (08:43→22:32)
[2018-08-18] MEDS: TAMSULOSIN 0.4 MG CAP.ER.24H PO SCH (08:43)
[2018-08-18] MEDS: CYANOCOBALAMIN 1,000 MCG TABLET PO SCH (08:43)
[2018-08-18] MEDS: FINASTERIDE 5 MG TABLET PO SCH (08:44)
[2018-08-18] MEDS: LACTULOSE 20 GM/30 ML UDC PO SCH ×2 (08:44→22:32)
[2018-08-18] MEDS: BISACODYL 10 MG SUPP PR SCH (08:45)
[2018-08-18] MEDS ORDERED: DIPHENHYDRAMINE 50 MG CAPSULE PO PRN (20:30)
[2018-08-18] MEDS: GABAPENTIN 300 MG CAPSULE PO SCH (22:32)
[2018-08-18] MEDS: ATORVASTATIN 40 MG TABLET PO SCH (22:32)
[2018-08-18] MEDS: INSULIN GLARGINE 100 UNITS/ML, PEN SQ-INSULIN SCH (22:45)
[2018-08-19 01:00] VITALS: BP 117/71
[2018-08-19] MEDS: AMPICILLIN 1 GM in SODIUM CHLORIDE 0.9% 100 ML IV SCH ×4 (04:43→22:22)
[2018-08-19 04:58] LABS: BASOPHILS # (AUTO) 0.02 x10^3/uL (0-0.1); BASOPHILS % (AUTO) 0 % (0-1); EOSINOPHILS # (AUTO) 0.39 x10^3/uL (0-0.4); EOSINOPHILS % (AUTO) 4 % (1-7); LYMPHOCYTES % (AUTO) 10 % (22-44); MD NO; MEAN CORPUSCULAR HEMOGLOBIN 28.5 pg (27.5-34.5); MEAN CORPUSCULAR HGB CONC 32.9 g/dL (33.2-36.2); MEAN CORPUSCULAR VOLUME 86.6 fL (81-97); MONOCYTES % (AUTO) 5 % (2-9); NEUTROPHILS # (AUTO) 8.19 x10^3/uL (1.8-6.8); NEUTROPHILS % (AUTO) 81 % (42-75); PLATELET COUNT 189 x10^3/uL (130-400); RED BLOOD COUNT 2.72 x10^6/uL (4.38-5.82); RED CELL DISTRIBUTION WIDTH 19.6 % (9.4-14.8)
[2018-08-19 05:03] LABS: ANION GAP 5 mmol/L (5-15); CALCIUM 8.3 mg/dL (8.5-10.1); CHLORIDE 107 mmol/L (98-107); CREATININE 1.82 mg/dL (0.7-1.3)
[2018-08-19 05:05] LABS: HCT (SEDRATE) 23.6 % (39.2-51.8)
[2018-08-19] MEDS: HEPARIN 5,000 UNITS/ML, 1ML SQ SCH ×3 (05:54→22:23)
[2018-08-19] MEDS: PANTOPROZOLE 40MG TABLET PO SCH ×2 (05:55→16:24)
[2018-08-19] MEDS: INSULIN LISPRO 100 UNITS/ML, PEN SQ-INSULIN SCH ×4 (07:00→22:23)
[2018-08-19 07:17] VITALS: BP 103/64
[2018-08-19] MEDS: FOSINOPRIL SODIUM PO SCH (09:00)
[2018-08-19] MEDS: BISACODYL 10 MG SUPP PR SCH (09:00)
[2018-08-19] MEDS: LACTULOSE 20 GM/30 ML UDC PO SCH ×3 (09:00→22:25)
[2018-08-19] MEDS: TAMSULOSIN 0.4 MG CAP.ER.24H PO SCH (09:22)
[2018-08-19] MEDS: ASPIRIN 325 MG TABLET PO SCH (09:23)
[2018-08-19] MEDS: LACTOBACILLUS 1GM/ PACKET PO SCH ×3 (09:23→22:24)
[2018-08-19] MEDS: FINASTERIDE 5 MG TABLET PO SCH (09:23)
[2018-08-19] MEDS: CYANOCOBALAMIN 1,000 MCG TABLET PO SCH (09:23)
[2018-08-19] MEDS: CARVEDILOL 6.25 MG TABLET PO SCH ×2 (09:24→22:24)
[2018-08-19 11:17] LABS: IRON LEVEL 44 mcg/dL (65-175)
[2018-08-19 11:18] LABS: % IRON SATURATION 30 % (20-55); TOTAL IRON BINDING CAPACITY 148 mcg/dL (250-450)
[2018-08-19 12:26] VITALS: BP 131/62
[2018-08-19 20:08] VITALS: BP 109/60
[2018-08-19] MEDS: GABAPENTIN 300 MG CAPSULE PO SCH (22:24)
[2018-08-19] MEDS: ATORVASTATIN 40 MG TABLET PO SCH (22:24)
[2018-08-19] MEDS: INSULIN GLARGINE 100 UNITS/ML, PEN SQ-INSULIN SCH (22:24)
[2018-08-19] MEDS: ACETAMINOPHEN 325 MG TABLET PO PRN (22:25)
[2018-08-20 00:40] VITALS: BP 101/55
[2018-08-20] MEDS: AMPICILLIN 1 GM in SODIUM CHLORIDE 0.9% 100 ML IV SCH ×4 (03:56→21:31)
[2018-08-20 05:26] LABS: BASOPHILS # (AUTO) 0.04 x10^3/uL (0-0.1); BASOPHILS % (AUTO) 1 % (0-1); EOSINOPHILS % (AUTO) 4 % (1-7); LYMPHOCYTES # (AUTO) 1.01 x10^3/uL (1-3.4); LYMPHOCYTES % (AUTO) 14 % (22-44); MD NO; MEAN CORPUSCULAR HEMOGLOBIN 28.4 pg (27.5-34.5); MEAN CORPUSCULAR HGB CONC 32.6 g/dL (33.2-36.2); MEAN CORPUSCULAR VOLUME 87.2 fL (81-97); MONOCYTES # (AUTO) 0.46 x10^3/uL (0.2-0.8); MONOCYTES % (AUTO) 6 % (2-9); NEUTROPHILS # (AUTO) 5.33 x10^3/uL (1.8-6.8); NEUTROPHILS % (AUTO) 75 % (42-75); PLATELET COUNT 184 x10^3/uL (130-400); RED BLOOD COUNT 2.69 x10^6/uL (4.38-5.82); RED CELL DISTRIBUTION WIDTH 19.4 % (9.4-14.8)
[2018-08-20 05:28] LABS: ANION GAP 4 mmol/L (5-15); CALCIUM 8.6 mg/dL (8.5-10.1); CHLORIDE 109 mmol/L (98-107)
[2018-08-20 05:30] LABS: CREATININE 1.71 mg/dL (0.7-1.3)
[2018-08-20] MEDS: HEPARIN 5,000 UNITS/ML, 1ML SQ SCH ×2 (06:21→16:19)
[2018-08-20] MEDS: PANTOPROZOLE 40MG TABLET PO SCH ×2 (06:21→16:00)
[2018-08-20 06:53] VITALS: BP 111/57
[2018-08-20] MEDS: INSULIN LISPRO 100 UNITS/ML, PEN SQ-INSULIN SCH ×4 (07:00→21:42)
[2018-08-20] MEDS: CYANOCOBALAMIN 1,000 MCG TABLET PO SCH (08:13)
[2018-08-20] MEDS: FINASTERIDE 5 MG TABLET PO SCH (08:13)
[2018-08-20] MEDS: ASPIRIN 325 MG TABLET PO SCH (08:13)
[2018-08-20] MEDS: TAMSULOSIN 0.4 MG CAP.ER.24H PO SCH (08:13)
[2018-08-20] MEDS: FOSINOPRIL SODIUM PO SCH (08:13)
[2018-08-20] MEDS: LACTOBACILLUS 1GM/ PACKET PO SCH ×3 (08:14→21:31)
[2018-08-20] MEDS: CARVEDILOL 6.25 MG TABLET PO SCH ×2 (08:14→21:32)
[2018-08-20] MEDS: LACTULOSE 20 GM/30 ML UDC PO SCH ×2 (08:17→21:00)
[2018-08-20] MEDS: BISACODYL 10 MG SUPP PR SCH (08:18)
[2018-08-20 09:00] VITALS: BP 112/57
[2018-08-20 12:21] VITALS: BP 122/54
[2018-08-20 19:00] VITALS: BP 125/61
[2018-08-20] MEDS: GABAPENTIN 300 MG CAPSULE PO SCH (21:31)
[2018-08-20] MEDS: ATORVASTATIN 40 MG TABLET PO SCH (21:31)
[2018-08-20] MEDS: INSULIN GLARGINE 100 UNITS/ML, PEN SQ-INSULIN SCH (21:42)
[2018-08-21] MEDS: TEMAZEPAM 15 MG CAPSULE PO PRN (01:38)
[2018-08-21] MEDS: HEPARIN 5,000 UNITS/ML, 1ML SQ SCH ×4 (01:39→21:55)
[2018-08-21 01:58] VITALS: BP 113/59
[2018-08-21 04:43] LABS: MEAN CORPUSCULAR HEMOGLOBIN 28.5 pg (27.5-34.5); MEAN CORPUSCULAR HGB CONC 33.1 g/dL (33.2-36.2); MEAN CORPUSCULAR VOLUME 86.2 fL (81-97); MEAN PLATELET VOLUME 7.4 fL (7.4-10.4); PLATELET COUNT 190 x10^3/uL (130-400); RED BLOOD COUNT 2.67 x10^6/uL (4.38-5.82); RED CELL DISTRIBUTION WIDTH 19.6 % (9.4-14.8)
[2018-08-21] MEDS: PANTOPROZOLE 40MG TABLET PO SCH ×2 (04:52→16:40)
[2018-08-21] MEDS: AMPICILLIN 1 GM in SODIUM CHLORIDE 0.9% 100 ML IV SCH ×4 (04:52→21:53)
[2018-08-21 04:56] LABS: ALANINE AMINOTRANSFERASE 38 U/L (12-78); ALBUMIN 2.1 g/dL (3.4-5.0); ANION GAP 5 mmol/L (5-15); CALCIUM 8.5 mg/dL (8.5-10.1); CHLORIDE 108 mmol/L (98-107); CREATININE 1.44 mg/dL (0.7-1.3); IRON LEVEL 40 mcg/dL (65-175)
[2018-08-21 04:59] LABS: % IRON SATURATION 30 % (20-55); ALKALINE PHOSPHATASE 136 U/L (45-117); BILIRUBIN,TOTAL 1.2 mg/dL (0.2-1.0); TOTAL IRON BINDING CAPACITY 134 mcg/dL (250-450); TOTAL PROTEIN 5.9 g/dL (6.4-8.2)
[2018-08-21 05:30] LABS: MD YES
[2018-08-21 05:34] LABS: ANISOCYTOSIS 1+; EOS#(MANUAL) 0.29 x10^3/uL (0.0-0.4); EOS% (MANUAL) 5 % (1-7); LYMPH#(MANUAL) 1.04 x10^3/uL (1-3.4); LYMPHS% (MANUAL) 18 % (22-44); MONOS#(MANUAL) 0.23 x10^3/uL (0.3-2.7); MONOS% (MANUAL) 4 % (2-9); OVALOCYTES 1+; SEG#(MANUAL) 4.23 x10^3/uL (1.8-6.8); SEGS% (MANUAL) 73 % (42-75)
[2018-08-21 05:35] LABS: <PLATELET ESTIMATE> ADEQUATE; <PLT MORPHOLOGY> NORMAL PLT MORPH
[2018-08-21] MEDS: INSULIN LISPRO 100 UNITS/ML, PEN SQ-INSULIN SCH ×4 (07:00→21:57)
[2018-08-21 07:10] VITALS: BP 107/56
[2018-08-21] MEDS: TAMSULOSIN 0.4 MG CAP.ER.24H PO SCH (08:23)
[2018-08-21] MEDS: FOSINOPRIL SODIUM PO SCH (08:24)
[2018-08-21] MEDS: CARVEDILOL 6.25 MG TABLET PO SCH ×2 (08:24→21:53)
[2018-08-21] MEDS: LACTOBACILLUS 1GM/ PACKET PO SCH ×3 (08:24→21:53)
[2018-08-21] MEDS: CYANOCOBALAMIN 1,000 MCG TABLET PO SCH (08:24)
[2018-08-21] MEDS: LACTULOSE 20 GM/30 ML UDC PO SCH ×2 (08:24→19:29)
[2018-08-21] MEDS: ASPIRIN 325 MG TABLET PO SCH (08:24)
[2018-08-21] MEDS: FINASTERIDE 5 MG TABLET PO SCH (08:24)
[2018-08-21] MEDS: BISACODYL 10 MG SUPP PR SCH (08:25)
[2018-08-21 13:03] VITALS: BP 96/53
[2018-08-21 20:42] VITALS: BP 109/68
[2018-08-21] MEDS: ATORVASTATIN 40 MG TABLET PO SCH (21:53)
[2018-08-21] MEDS: GABAPENTIN 300 MG CAPSULE PO SCH (21:53)
[2018-08-21] MEDS: INSULIN GLARGINE 100 UNITS/ML, PEN SQ-INSULIN SCH (21:58)
[2018-08-22] MEDS: TEMAZEPAM 15 MG CAPSULE PO PRN (00:24)
[2018-08-22 02:33] VITALS: BP 101/61
[2018-08-22 04:52] LABS: BASOPHILS # (AUTO) 0.03 x10^3/uL (0-0.1); BASOPHILS % (AUTO) 1 % (0-1); EOSINOPHILS # (AUTO) 0.32 x10^3/uL (0-0.4); EOSINOPHILS % (AUTO) 5 % (1-7); LYMPHOCYTES # (AUTO) 1.13 x10^3/uL (1-3.4); LYMPHOCYTES % (AUTO) 18 % (22-44); MD NO; MEAN CORPUSCULAR HEMOGLOBIN 28.1 pg (27.5-34.5); MEAN CORPUSCULAR HGB CONC 32.6 g/dL (33.2-36.2); MEAN CORPUSCULAR VOLUME 86.2 fL (81-97); MEAN PLATELET VOLUME 7.8 fL (7.4-10.4); MONOCYTES # (AUTO) 0.48 x10^3/uL (0.2-0.8); MONOCYTES % (AUTO) 8 % (2-9); NEUTROPHILS % (AUTO) 69 % (42-75); PLATELET COUNT 189 x10^3/uL (130-400); RED BLOOD COUNT 2.66 x10^6/uL (4.38-5.82); RED CELL DISTRIBUTION WIDTH 19.5 % (9.4-14.8)
[2018-08-22 05:05] LABS: CALCIUM 8.3 mg/dL (8.5-10.1); CHLORIDE 109 mmol/L (98-107)
[2018-08-22 05:08] LABS: ALANINE AMINOTRANSFERASE 42 U/L (12-78); ALKALINE PHOSPHATASE 131 U/L (45-117); BILIRUBIN,TOTAL 1.1 mg/dL (0.2-1.0); CREATININE 1.47 mg/dL (0.7-1.3); TOTAL PROTEIN 5.7 g/dL (6.4-8.2)
[2018-08-22] MEDS: PANTOPROZOLE 40MG TABLET PO SCH ×2 (05:15→18:27)
[2018-08-22] MEDS: HEPARIN 5,000 UNITS/ML, 1ML SQ SCH ×2 (05:15→18:26)
[2018-08-22] MEDS: AMPICILLIN 1 GM in SODIUM CHLORIDE 0.9% 100 ML IV SCH ×4 (05:15→22:20)
[2018-08-22 05:19] LABS: ANION GAP 7 mmol/L (5-15)
[2018-08-22] MEDS: INSULIN LISPRO 100 UNITS/ML, PEN SQ-INSULIN SCH ×4 (07:00→21:00)
[2018-08-22 07:36] VITALS: BP 115/66
[2018-08-22] MEDS: BISACODYL 10 MG SUPP PR SCH (09:00)
[2018-08-22] MEDS: FOSINOPRIL SODIUM PO SCH (09:00)
[2018-08-22] MEDS: LACTOBACILLUS 1GM/ PACKET PO SCH ×3 (11:14→20:32)
[2018-08-22] MEDS: FINASTERIDE 5 MG TABLET PO SCH (11:14)
[2018-08-22] MEDS: CARVEDILOL 6.25 MG TABLET PO SCH ×2 (11:14→20:32)
[2018-08-22] MEDS: LACTULOSE 20 GM/30 ML UDC PO SCH ×2 (11:15→20:40)
[2018-08-22] MEDS: ASPIRIN 325 MG TABLET PO SCH (11:15)
[2018-08-22] MEDS: CYANOCOBALAMIN 1,000 MCG TABLET PO SCH (11:15)
[2018-08-22] MEDS: TAMSULOSIN 0.4 MG CAP.ER.24H PO SCH (11:15)
[2018-08-22 14:00] VITALS: BP 107/56
[2018-08-22 17:09] VITALS: BP 109/68
[2018-08-22 20:01] VITALS: BP 113/71
[2018-08-22] MEDS: ATORVASTATIN 40 MG TABLET PO SCH (20:32)
[2018-08-22] MEDS: GABAPENTIN 300 MG CAPSULE PO SCH (20:32)
[2018-08-22] MEDS: INSULIN GLARGINE 100 UNITS/ML, PEN SQ-INSULIN SCH (22:22)
[2018-08-23 01:45] VITALS: BP 113/59
[2018-08-23] MEDS: AMPICILLIN 1 GM in SODIUM CHLORIDE 0.9% 100 ML IV SCH ×3 (04:39→18:29)
[2018-08-23] MEDS: PANTOPROZOLE 40MG TABLET PO SCH ×2 (05:32→18:28)
[2018-08-23 06:22] LABS: BASOPHILS # (AUTO) 0.02 x10^3/uL (0-0.1); BASOPHILS % (AUTO) 0 % (0-1); EOSINOPHILS # (AUTO) 0.34 x10^3/uL (0-0.4); EOSINOPHILS % (AUTO) 6 % (1-7); LYMPHOCYTES # (AUTO) 0.94 x10^3/uL (1-3.4); LYMPHOCYTES % (AUTO) 16 % (22-44); MD NO; MEAN CORPUSCULAR HEMOGLOBIN 28.5 pg (27.5-34.5); MEAN CORPUSCULAR VOLUME 86.3 fL (81-97); MEAN PLATELET VOLUME 7.2 fL (7.4-10.4); MONOCYTES # (AUTO) 0.43 x10^3/uL (0.2-0.8); MONOCYTES % (AUTO) 7 % (2-9); NEUTROPHILS # (AUTO) 4.31 x10^3/uL (1.8-6.8); NEUTROPHILS % (AUTO) 71 % (42-75); PLATELET COUNT 186 x10^3/uL (130-400); RED BLOOD COUNT 2.71 x10^6/uL (4.38-5.82); RED CELL DISTRIBUTION WIDTH 19.6 % (9.4-14.8)
[2018-08-23 06:33] LABS: ANION GAP 4 mmol/L (5-15); CALCIUM 8.5 mg/dL (8.5-10.1); CHLORIDE 108 mmol/L (98-107)
[2018-08-23 06:36] LABS: ALANINE AMINOTRANSFERASE 47 U/L (12-78); ALKALINE PHOSPHATASE 138 U/L (45-117); BILIRUBIN,TOTAL 1.5 mg/dL (0.2-1.0); CREATININE 1.19 mg/dL (0.7-1.3); TOTAL PROTEIN 5.7 g/dL (6.4-8.2)
[2018-08-23] MEDS: INSULIN LISPRO 100 UNITS/ML, PEN SQ-INSULIN SCH ×4 (07:00→20:42)
[2018-08-23 07:20] VITALS: BP 87/40
[2018-08-23] MEDS: CARVEDILOL 6.25 MG TABLET PO SCH ×2 (09:00→20:00)
[2018-08-23] MEDS: FOSINOPRIL SODIUM PO SCH (09:00)
[2018-08-23] MEDS: BISACODYL 10 MG SUPP PR SCH (09:00)
[2018-08-23 09:07] VITALS: BP 96/42
[2018-08-23] MEDS: LACTOBACILLUS 1GM/ PACKET PO SCH ×3 (09:35→20:00)
[2018-08-23] MEDS: FINASTERIDE 5 MG TABLET PO SCH (09:35)
[2018-08-23] MEDS: CYANOCOBALAMIN 1,000 MCG TABLET PO SCH (09:35)
[2018-08-23] MEDS: TAMSULOSIN 0.4 MG CAP.ER.24H PO SCH (09:35)
[2018-08-23] MEDS: ASPIRIN 325 MG TABLET PO SCH (09:35)
[2018-08-23] MEDS: LACTULOSE 20 GM/30 ML UDC PO SCH ×2 (09:35→20:00)
[2018-08-23] MEDS: HEPARIN 5,000 UNITS/ML, 1ML SQ SCH ×4 (09:36→20:41)
[2018-08-23] MEDS ORDERED: DARBEPOETIN 40 MCG/ML SQ SCH (10:00)
[2018-08-23 13:14] VITALS: BP 112/58
[2018-08-23 19:43] VITALS: BP 121/69
[2018-08-23] MEDS: GABAPENTIN 300 MG CAPSULE PO SCH (20:00)
[2018-08-23] MEDS: ATORVASTATIN 40 MG TABLET PO SCH (20:00)
[2018-08-23] MEDS: INSULIN GLARGINE 100 UNITS/ML, PEN SQ-INSULIN SCH (20:42)
[2018-08-24] MEDS: AMPICILLIN 1 GM in SODIUM CHLORIDE 0.9% 100 ML IV SCH ×3 (00:29→13:02)
[2018-08-24 00:44] VITALS: BP 99/50
[2018-08-24 05:34] LABS: ALBUMIN 2.1 g/dL (3.4-5.0); ANION GAP 5 mmol/L (5-15); CALCIUM 8.3 mg/dL (8.5-10.1); CHLORIDE 110 mmol/L (98-107)
[2018-08-24] MEDS: PANTOPROZOLE 40MG TABLET PO SCH (05:34)
[2018-08-24 05:37] LABS: ALANINE AMINOTRANSFERASE 37 U/L (12-78); ALKALINE PHOSPHATASE 136 U/L (45-117); BILIRUBIN,TOTAL 1.1 mg/dL (0.2-1.0); TOTAL PROTEIN 5.5 g/dL (6.4-8.2)
[2018-08-24 05:45] LABS: MEAN CORPUSCULAR HEMOGLOBIN 28.5 pg (27.5-34.5); MEAN CORPUSCULAR VOLUME 86.4 fL (81-97); MEAN PLATELET VOLUME 8.4 fL (7.4-10.4); PLATELET COUNT 186 x10^3/uL (130-400); RED BLOOD COUNT 2.63 x10^6/uL (4.38-5.82); RED CELL DISTRIBUTION WIDTH 20.3 % (9.4-14.8)
[2018-08-24 06:16] LABS: BASOPHILS # (AUTO) 0.03 x10^3/uL (0-0.1); BASOPHILS % (AUTO) 1 % (0-1); EOSINOPHILS # (AUTO) 0.36 x10^3/uL (0-0.4); EOSINOPHILS % (AUTO) 6 % (1-7); LYMPHOCYTES # (AUTO) 1.22 x10^3/uL (1-3.4); LYMPHOCYTES % (AUTO) 20 % (22-44); MD SCAN; MONOCYTES % (AUTO) 7 % (2-9); NEUTROPHILS # (AUTO) 4.09 x10^3/uL (1.8-6.8); NEUTROPHILS % (AUTO) 67 % (42-75)
[2018-08-24] MEDS: INSULIN LISPRO 100 UNITS/ML, PEN SQ-INSULIN SCH ×2 (07:00→11:00)
[2018-08-24 07:25] VITALS: BP 114/68
[2018-08-24] MEDS: CYANOCOBALAMIN 1,000 MCG TABLET PO SCH (07:54)
[2018-08-24] MEDS: TAMSULOSIN 0.4 MG CAP.ER.24H PO SCH (07:54)
[2018-08-24] MEDS: ASPIRIN 325 MG TABLET PO SCH (07:54)
[2018-08-24] MEDS: FINASTERIDE 5 MG TABLET PO SCH (07:54)
[2018-08-24] MEDS: HEPARIN 5,000 UNITS/ML, 1ML SQ SCH (08:00)
[2018-08-24] MEDS: FOSINOPRIL SODIUM PO SCH (08:41)
[2018-08-24] MEDS: LACTOBACILLUS 1GM/ PACKET PO SCH (09:00)
[2018-08-24] MEDS: CARVEDILOL 6.25 MG TABLET PO SCH (09:00)
[2018-08-24] MEDS: LACTULOSE 20 GM/30 ML UDC PO SCH (09:00)
[2018-08-24] MEDS: BISACODYL 10 MG SUPP PR SCH (09:00)
[2018-08-24 15:49] VITALS: BP 108/62
== END 2018-08-24 16:29 | DRG 871 ==
LOC: ED 18:08 → EDIP 19:33 → 3NE 20:13
PROVIDERS: ADMIT Family Medicine; ATTEND Family Medicine
PROC: 0T9B70Z Drainage of Bladder with Drainage Device, Via Natural or Artificial Opening (ICD-10-PCS; principal; 2018-08-17)
PROC: 30233N1 Transfusion of Nonautologous Red Blood Cells into Peripheral Vein, Percutaneous Approach (ICD-10-PCS; 2018-08-18)
PROC: 5A1D70Z Performance of Urinary Filtration, Intermittent, Less than 6 Hours Per Day (ICD-10-PCS; 2018-08-22)
PROC: 5A1D70Z Performance of Urinary Filtration, Intermittent, Less than 6 Hours Per Day (ICD-10-PCS; 2018-08-24)
DX: A41.9 Sepsis, unspecified organism (principal); N18.6 End stage renal disease; E43 Unspecified severe protein-calorie malnutrition; N39.0 Urinary tract infection, site not specified; D68.69 Other thrombophilia; I12.0 Hypertensive chronic kidney disease with stage 5 chronic kidney disease or end stage renal disease; I48.92 Unspecified atrial flutter; B96.1 Klebsiella pneumoniae [K. pneumoniae] as the cause of diseases classified elsewhere; D63.1 Anemia in chronic kidney disease; E11.21 Type 2 diabetes mellitus with diabetic nephropathy; E11.22 Type 2 diabetes mellitus with diabetic chronic kidney disease; E11.42 Type 2 diabetes mellitus with diabetic polyneuropathy; E78.5 Hyperlipidemia, unspecified; E83.42 Hypomagnesemia; I48.91 Unspecified atrial fibrillation; K59.00 Constipation, unspecified; N25.0 Renal osteodystrophy; N40.1 Benign prostatic hyperplasia with lower urinary tract symptoms; Z79.4 Long term (current) use of insulin; Z87.442 Personal history of urinary calculi; Z99.2 Dependence on renal dialysis; Z68.31 Body mass index [BMI] 31.0-31.9, adult
CPT/HCPCS: 36415; 36430; 71045; 74176; 80048; 80053; 81001; 81050; 82306; 82570; 82728; 82962; 83540; 83550; 83605; 83690; 83735; 83970; 85014; 85018; 85025; 85610; 85651; 86140; 86704; 86706; 86850; 86900; 86923; 87040; 87077; 87086; 87186; 87340; 99285; G0378; J0290; J0881; J1644; J1815; J3475; J7030; P9016

== ENCOUNTER → 2020-03-02 | Outpatient (CLI) | payer MEDICARE, OTHER ==
[~2020-03-02] MED LIST changes: +CYAN-27 PO; -CYAN10005 PO; -FOSI10TA PO; +FOSI10TA2 PO; -GUAI200T3 PO; +GUAI200T37 PO; +GUAI400T81 PO; +INSU100C SQ-INSULIN; +NITR100C56 PO; +OXYB5TAB10 PO; -OXYB5TAB7 PO; +TEMA15CA PO
== END | disposition home or self-care (01) ==
LOC: CFH 11:53
PROVIDERS: ATTEND Internal Medicine Nephrology
DX: N32.89 Other specified disorders of bladder (principal); N13.30 Unspecified hydronephrosis; N18.4 Chronic kidney disease, stage 4 (severe)
CPT/HCPCS: 76770

== ENCOUNTER → 2020-04-02 | Outpatient (CLI) | payer MEDICARE, OTHER ==
[~2020-04-02] MED LIST changes: -PANT40TA5 PO; +PANT40TA6 PO
== END | disposition home or self-care (01) ==
LOC: CFH 12:58
PROVIDERS: ATTEND Internal Medicine Nephrology
DX: N20.0 Calculus of kidney (principal); N28.1 Cyst of kidney, acquired; D73.4 Cyst of spleen; N13.30 Unspecified hydronephrosis; N18.4 Chronic kidney disease, stage 4 (severe)
CPT/HCPCS: 74150